=== PATIENT | male | born 1935 | race Caucasian/White ===

== ENCOUNTER 2016-12-24 17:44 | Inpatient (IN) ==
--- NOTE | 2016-12-24 18:02 | Anesthesia Evaluation PreOp ---
Date of Encounter: 12/24/16 Time of Encounter: 18:00 - Past History Planned Operation: Lap. 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 DEHYDROGENATION History: Denies Any Significant HX Other Medical History: Diabetes Type II Anesthesia History: No Prior Anesthetic Complications, Past Anesthesia (Cabg, Hernia, Eye sx) Alcohol Use: none Drug use: none Medications and Allergies Aspirin 81 mg PO DAILY 12/24/16 [History] Brimonidine 0.2% [Alphagan] 1 drop BOTH EYES BID 12/24/16 [History] Dorzolamide/Timolol [Cosopt] 1 drop BOTH EYES BID 12/24/16 [History] Hydrochlorothiazide 12.5 mg PO AD 12/24/16 [History] Insulin Glargine [Lantus] 55 unit SQ DAILY 12/24/16 [History] Isosorbide MONOnitrate (24 HR) [Imdur] 30 mg PO DAILY 12/24/16 [History] Nitroglycerin [Nitrostat] 0.4 mg SL AD 12/24/16 [History] Potassium Chloride [K-Tab ER] 20 meq PO DAILY 12/24/16 [History] Rosuvastatin Calcium [Crestor] 10 mg PO DAILY 12/24/16 [History] Sertraline [Zoloft] 50 mg PO DAILY 12/24/16 [History] Tamsulosin [Flomax] 0.8 mg PO DAILY 12/24/16 [History] Allergies Penicillins Allergy (Verified 12/24/16 12:56) Rash - Meds/Allergy Pre-op Review Medications Reviewed: Yes Allergies Reviewed: Yes Beta Blockers on Current Med List: No Anesthesia Results - Labs Laboratory Tests 12/24/16 12/24/16 12/24/16 13:30 13:30 13:30 WBC 14.5 H Hgb 13.7 Hct 41.8 Plt Count 136 L INR 1.3 Sodium 134 L Potassium 4.8 H Chloride 102 Carbon Dioxide 26 BUN 19 Creatinine 1.56 H ECHO 09/18/16 EF- 60% No Aortic stenosis Anesthesia Exam O2 Sat Height 1.85 m Weight 99.337 kg O2 Sat by Pulse Oximetry 96 Vital Signs Temp Pulse Resp BP Pulse Ox 98.9 F 94 18 179/89 96 12/24/16 17:47 12/24/16 17:47 12/24/16 17:47 12/24/16 17:47 12/24/16 17:47 Height: 6'1'' Weight: 219# - HEENT Pupil (Motor): Pupils equal, EOMI Mallampati: II Teeth: Normal Oral Opening: Greater than 3 - SUPERVISOR DEHYDROGENATION LOC: Oriented SUPERVISOR DEHYDROGENATION Motor: Normal RUE, Normal LUE, Normal RLE, Normal LLE, Normal Face SUPERVISOR DEHYDROGENATION Sensory: Normal: RUE, LUE, RLE, LLE, Face - Cardiac Rhythm: Regular Murmur: None Carotid Bruit: No - Pulmonary Breath Sounds: bilateral Clear Respiratory Effort: Symmetrical Anesthesia Assess/Plan ASA Score: 3 Modified Nicole Scale for Level of Consciousness: Cooperative, oriented, and tranquil Anesthetic Plan: General Autologous Blood: Yes Monitoring Plan: Standard Monitors Recovery Plan: PACU
[2016-12-24] MEDS ORDERED: Acetaminophen 325 MG TABLET PO PRN (18:11)
[2016-12-24] MEDS ORDERED: Naloxone 0.4 MG/ML INJ IVP PRN ×2 (18:11→21:38)
[2016-12-24] MEDS ORDERED: Ondansetron 4 MG/2 ML VIAL IVP PRN ×2 (18:11→21:38)
[2016-12-24] MEDS ORDERED: *HR* Promethazine 25 MG/ML VIAL IVP PRN ×2 (18:11→21:38)
[2016-12-24] MEDS ORDERED: *HR* HYDROmorphone (PF) 1 MG/ML SYRINGE IVP PRN (18:13)
[2016-12-24] MEDS ORDERED: *HR* OxyCODONE/APAP 5/325 TABLET PO PRN (18:13)
[2016-12-24] MEDS ORDERED: Dextrose Gel 15 GM PO PRN ×3 (18:16→21:38)
[2016-12-24] MEDS ORDERED: D5% in Water 1,000 ML IV PRN ×2 (18:16→21:38)
[2016-12-24] MEDS ORDERED: *HR* Dextrose 50 % in Water (Syg) 50 ML SYRINGE IVP PRN ×2 (18:16→21:38)
--- NOTE | 2016-12-24 18:17 | General Surg History&Physical ---
Date of Encounter: 12/24/16 Time of Encounter: 17:55 History of Present Illness Chief complaint: Acute appendicitis HPI: Mr. Villa is a 81 year old male transferred from [facility] for further evaluation and treatment of acute appendicitis. Patient indicates pain started 6 days ago and has progressed in severity. CT demonstrates bibasilar dependent atelectasis; inflamed and enlarged appendix without evidence of periappendiceal abscess or free intraperitoneal air. Scattered diverticula involving the sigmoid colon without evidence of diverticulitis is also noted. At the patient's request I was contacted and instructed [facility] to transfer the patient to [facility]. There he was evaluated in preparation for surgery. Past medical history is notable for diabetes; hypertension; hyperlipidemia; and a remote history of myocardial infarction; CKD-3 Surgical history: Coronary artery bypass grafting actually 10 years ago; coronary stenting; inguinal herniorrhaphy at approximate age 21 Medications: Aspirin 81 mg by mouth daily Brimonidine 0.2% one drop both eyes twice a day Dorzolamide/timolol 1 drop both eyes twice a day Hydrochlorothiazide 12.5 mg by mouth daily Insulin glargine 55 units subcutaneous daily Insulin lispro 6 units subcutaneous 3 times a day Isosorbide mononitrate (24 hours) 30 mg by mouth daily Nitroglycerin 0.4 mg sublingually as directed Potassium 20 mEq by mouth daily Rosuvastatin 10 mg by mouth daily Sertraline 50 mg by mouth daily Tamsulosin 0.8 mg by mouth daily Allergies: Penicillin with exposure resulting in a rash Social history: Patient is , lives with his spouse; has never smoked, denies any alcohol or illicit drug use Physical examination: Age-appropriate male resting comfortably in his ED bed, in no acute distress. The patient indicates he has pain when he moves" The patient has been afebrile, 98.9; also 94, respirations 18, blood pressure 179/89. Skin: Warm, dry no obvious jaundice Lungs: Clear to auscultation with minimal pain on deep inspiration Cardiac: Regular rate, soft ejection murmur Abdomen: Protuberant with involuntary guarding particularly in the right lower quadrant. Significant tenderness right lower quadrant; left lower quadrant without tenderness but on release of the abdominal wall rebound is elicited. No bowel sounds were audible. Extremities: No obvious clubbing cyanosis or edema. Laboratories: white count 14.5, hemoglobin 13.7, hematocrit 41.8; platelet count 136,000 PT 14.5, INR 1.3; sodium 134, potassium 4.8, BUN 19, creatinine 1.56 (review of previous labs indicate this is essentially baseline) Bilirubin 1.5, AST 11, ALT 14, alkaline phosphatase 96. Urinalysis markedly abnormal with greater than 300 protein; greater than thousand glucose trace ketones and moderate urine blood. 5-15 RBCs per high power field; 15-30 white cells per high-powered field CT was personally reviewed Impression: 81-year-old male with acute appendicitis for which surgery has been recommended. The patient is a reasonable candidate for laparoscopic appendectomy but understands that an open appendectomy may become necessary. Risks include hemorrhage, infection, intra-abdominal abscess, injury to adjacent structures. The patient is at increased risk for respiratory and cardiac complications. The patient has of expressed understanding and have granted consent. Plan: Observation admission, surgery PITER. Past Med Surg Social Fam HX - Past Medical History Medical history: diabetes, hyperlipidemia, hypertension, myocardial infarction Psychiatric history: no psych history - Social History Smoking Status: Never smoker Alcohol use: none Drug use: none Medications and Allergies Aspirin 81 mg PO DAILY 12/24/16 [History] Brimonidine 0.2% [Alphagan] 1 drop BOTH EYES BID 12/24/16 [History] Dorzolamide/Timolol [Cosopt] 1 drop BOTH EYES BID 12/24/16 [History] Hydrochlorothiazide 12.5 mg PO AD 12/24/16 [History] Insulin Glargine [Lantus] 55 unit SQ DAILY 12/24/16 [History] Insulin LISPRO [HumaLOG] 6 units SQ TIDWM 12/24/16 [History] Isosorbide MONOnitrate (24 HR) [Imdur] 30 mg PO DAILY 12/24/16 [History] Nitroglycerin [Nitrostat] 0.4 mg SL AD 12/24/16 [History] Potassium Chloride [K-Tab ER] 20 meq PO DAILY 12/24/16 [History] Rosuvastatin Calcium [Crestor] 10 mg PO DAILY 12/24/16 [History] Sertraline [Zoloft] 50 mg PO DAILY 12/24/16 [History] Tamsulosin [Flomax] 0.8 mg PO DAILY 12/24/16 [History] Allergies Penicillins Allergy (Verified 12/24/16 12:56) Rash Review of Systems All systems PM: A 10-system review of systems was performed and is negative for pertinent findings except as documented above in the HPI. General Surgery Exam Initial Vital Signs Temp Pulse Resp BP Pulse Ox 98.9 F 94 18 179/89 96 12/24/16 17:47 12/24/16 17:47 12/24/16 17:47 12/24/16 17:47 12/24/16 17:47 Results - Labs All other labs normal.
[2016-12-24] MEDS ORDERED: Bupivacaine/EPI 1:200k 0.25%PF 30 ML VIAL ONE (18:18)
[2016-12-24] MEDS ORDERED: *HR* Heparin 5,000 UNIT/ML VIAL SQ ONE (18:19)
[2016-12-24] MEDS ORDERED: Ondansetron 4 MG/2 ML VIAL ONE ×2 (18:25→19:22)
[2016-12-24] MEDS ORDERED: *HR* FentaNYL (PF) 100 MCG/2 ML VIAL ONE (18:25)
[2016-12-24] MEDS ORDERED: *HR* Rocuronium Bromide 50 MG/5 ML VIAL ONE ×2 (18:25→20:02)
[2016-12-24] MEDS ORDERED: Lidocaine -MPF 2% 2 ML VIAL ONE (18:26)
[2016-12-24] MEDS ORDERED: Ertapenem 1,000 MG in 0.9 % Sodium Chloride Mini Bag 100 ML IVPB STA (18:45)
[2016-12-24] MEDS ORDERED: Insulin Regular, Human 100 UNIT/ML ONE (18:52)
[2016-12-24] MEDS ORDERED: EPHEDrine 50 MG/ML VIAL ONE (19:17)
[2016-12-24] MEDS ORDERED: Dexamethasone 4 MG/ML VIAL ONE (19:22)
[2016-12-24] MEDS ORDERED: MetroNIDAZOLE 500 MG/100 ML 500 MG/100 ML BAG IVPB ONE (19:26)
[2016-12-24] MEDS ORDERED: *HR* HYDROmorphone 2 MG/ML SYRINGE ONE (19:35)
[2016-12-24] MEDS ORDERED: Acetaminophen IV 1,000 MG/100 ML INFUS..BTL ONE (19:43)
[2016-12-24] MEDS ORDERED: Neostigmine Methylsulfate 3 MG/3 ML SYRINGE ONE (20:15)
[2016-12-24] MEDS ORDERED: Insulin DETEMIR 100 UNIT/ML X5UNITS SQ SCH ×3 (21:00)
[2016-12-24] MEDS ORDERED: Insulin LISPRO 300 UNITS/3 ML VIAL SQ SCH ×2 (21:00)
--- NOTE | 2016-12-24 21:15 | Operative Note ---
Date of procedure: 12/24/16 Pre-op diagnosis: Acute appendicitis Post-op diagnosis: other (Acute gangrenous, perforated appendicitis) Procedure: Laparoscopy, open cholecystectomy Complications: Acute gangrenous perforated appendicitis with pus and stool right paracolic gutter Anesthesia: GETA Local Anesthetics: 0.25% Sensorcaine HCL with Epinephrine 1:200,000 SubQ (cc) ( 25 mL) Surgeon: Rehan Leone Deburrer: Aiden Baptiste Estimated blood loss (cc): 150 IV fluids (cc): 1,100 Specimen: appendix Condition: stable Disposition: PACU Procedure in Detail: The patient was brought to the operating room where he was placed supine upon the operating room table. The patient was appropriately identified as to person and procedure. The accuracy of this information was confirmed by the procedure team. The patient was intubated and anesthetized under the supervision of Dr. Michelle Patel. The abdomen was prepped and draped in usual sterile fashion. Several milliliters of 0.25% bupivacaine with 1 200,000 units epinephrine was infiltrated into the infraumbilical skin. A small transverse incision was made. Dissection was carried to the fascia. The fascia was grasped and elevated. Additional bupivacaine with 1 2000 epinephrine was infiltrated into the fascia followed by a vertical incision in the fascia. An 11 mm Xcel port was established. The rigid laparoscope was placed within the obturator to visualize passage through the layers of the anterior abdominal wall. Once the abdominal cavity was accessed, the obturator was replaced by the rigid laparoscope and the peritoneal cavity was insufflated with gaseous carbon dioxide. There was no obvious visible injury from establishing the port. There was green inflammatory fluid evident within the pelvis. Under direct visualization a 5 mm port was placed in the midline suprapubic abdomen, and a 12 mm port established in the left lower quadrant midclavicular line. Each site was infiltrated with the bupivacaine with epinephrine solution. Acute inflammatory changes were identified in the right pericolic gutter. This was most intense at the proximal tip of the cecum. The cecum was elevated. Distal ileum demonstrated some inflammatory changes with fibrinous exudate and adhesions. As these adhesions were lysed, the appendix was identified. The appendix was gangrenous with early necrotic changes. As the dissection proceeded it was apparent that the appendix was perforated. Further dissection resulted in increased discharge of appendiceal contents. The adherent small bowel secured the distal tip of the appendix. The laparoscopic approach was abandoned. The pneumoperitoneum was evacuated and the instrumentation removed. A transverse incision was made just medial and cephalad to the right anterior superior iliac spine. The skin was infiltrated with several milliliters of 0.25% bupivacaine with 1-200,000 units of epinephrine before making the skin incision. Dissection was carried through the subcutaneous tissue. Bleeding points were controlled with electrocautery. Dissection intended to the aponeurosis of the external oblique which was incised transversely. The oblique musculature was split in the direction of its fibers exposing the transversalis fascia allowing it to be grasped and elevated. This fascia was then incised and the abdomen entered atraumatically. Using a gloved hand, I was able to dissect the adherent small bowel from the appendix and mobilize the appendix to facilitate its removal. The appendix was transected at its junction with the cecum using the Ethicon ATS 45 mm stapler ( blue cartridge). The appendix was elevated to allow the mesoappendix to be divided with the Ethicon ATS 45 mm stapler using a vascular cartridge. Application of the the stapler was insufficient to control the appendiceal artery. It was necessary to suture ligate the artery with 3-0 silk. The appendix was removed in fragments and sent to pathology. The right paracolic gutter and pelvis was copiously irrigated with warm sterile saline. The saline was removed with a suction device. This area was repeatedly irrigated. Closure was then accomplished in layers. The peritoneum was closed with the transversalis fascia using running, interlocking 0 Vicryl. The aponeurosis of the external oblique was approximated with interrupted [id number] 0 Vicryl. The subcutaneous tissue was irrigated with warm sterile saline which was evacuated with the suction device and then approximated with running 3-0 Vicryl. The skin edges of the incision and port sites were approximated with clifford. Dry sterile dressings were applied the patient was taken to recovery in stable condition. Needle, sponge, and instrument counts were correct at the close of the case. Total volume of 0.25% bupivacaine with 1-200,000 units epinephrine used during this procedure, 25 mL.
[2016-12-24] MEDS ORDERED: Nitroglycerin 0.4 MG TAB.SUBL SL PRN (21:38)
--- NOTE | 2016-12-24 22:17 | Anesthesia Evaluation Post Op ---
Date of Encounter: 12/24/16 Time of Encounter: 21:35 - Vital Signs Vital Signs: Vital Signs/O2 Sat/Glucose, Most Current Temp Pulse Resp BP Pulse Ox 12/24/16 21:31 94 16 137/61 98 12/24/16 21:21 96 18 140/63 97 12/24/16 21:11 98.9 F 86 16 136/61 98 12/24/16 21:01 81 14 136/59 98 12/24/16 20:51 90 14 130/57 98 12/24/16 20:41 97.5 F L 74 10 129/55 99 12/24/16 18:30 98.9 F 18 179/89 - Lungs Lungs: Clear Ascult./Percussion - Airway Airway: Non-obstructed - Cardiovascular Regular Rate, Baseline Rhythm - Mental Status Mental Status: Alert & Oriented, Answers Appropriately - Pain Pain Scale: 1 Pain Scale used: Marquez-Zhu (Faces) - Nausea Vomiting Nausea Vomiting: Not Present - Hydration Hydration: NPO, Has not voided - Discharge PostOp Status: Transfer Patient to floor Anes Supervising Prov Stmt: Pt seen/evaluated, VSS And has met criteria for discharge to floor. - MD Hermelindo
[2016-12-24] MEDS: Insulin LISPRO 300 UNITS/3 ML VIAL SQ SCH (22:20)
[2016-12-24] MEDS: Dorzolamide/Timolol OPTH 10 ML BOTTLE BOTH EYES SCH (22:52)
[2016-12-25] MEDS: *HR* HYDROmorphone (PF) 1 MG/ML SYRINGE IVP PRN ×3 (01:52→14:06)
[2016-12-25] MEDS: MetroNIDAZOLE 500 MG/100 ML 500 MG/100 ML BAG IVPB SCH ×3 (01:53→16:59)
[2016-12-25] MEDS: Insulin LISPRO 300 UNITS/3 ML VIAL SQ SCH ×6 (01:53→22:24)
[2016-12-25] MEDS: *HR* OxyCODONE/APAP 5/325 TABLET PO PRN ×3 (05:18→21:13)
[2016-12-25 06:17] LABS: Basophils % 0.1 %; Hematocrit 43.7 % (37.5-50.1); Hemoglobin 13.9 g/dL (12.9-16.9); Immature Granulocytes % 0.3 % (0-4); Lymphocytes # 0.4 K/mcL (0.6-4.6); Lymphocytes % 2.9 %; Mean Corpuscular HGB Conc 31.8 g/dL (31.6-35.5); Mean Corpuscular Hemoglobin 29.1 pg (28.0-33.3); Mean Corpuscular Volume 91.4 fL (83.0-100.0); Mean Platelet Volume 11.4 fL (9.4-12.4); Monocytes # 0.7 K/mcL (0.0-1.3); Monocytes % 6.1 %; Platelet Count 137 K/mcL (140-400); Red Blood Count 4.78 M/mcL (4.19-5.50); Red Cell Distribution Width 12.7 % (11.5-14.5); Segmented Neutrophils % 90.6 %
[2016-12-25 06:39] LABS: Albumin 2.6 g/dL (3.5-5.0); Albumin/Globulin Ratio 0.7 (1.1-2.2); Bilirubin,Total 1.7 mg/dL (0.2-1.2); Calcium 9.1 mg/dL (8.6-10.8); Potassium 4.5 mEq/L (3.5-4.5); Total Protein 6.6 g/dL (6.0-8.3)
[2016-12-25 06:45] LABS: Large Platelets Present (Not Present); Platelet Estimate Decreased (Normal); Reactive Lymphocytes Present (Not Present); Toxic Granulation Present (Not Present)
[2016-12-25] MEDS ORDERED: Insulin LISPRO 300 UNITS/3 ML VIAL SQ SCH ×2 (07:30)
[2016-12-25] MEDS: Ringers Solution, Lactated 1,000 ML IVC SCH ×2 (08:18→16:47)
[2016-12-25] MEDS ORDERED: Pantoprazole 40 MG VIAL IVP SCH ×2 (09:00)
[2016-12-25] MEDS ORDERED: Ringers Solution, Lactated 500 ML IVC ONE (09:57)
[2016-12-25] MEDS: Dorzolamide/Timolol OPTH 10 ML BOTTLE BOTH EYES SCH (11:01)
[2016-12-25] MEDS: Isosorbide MONOnitrate (24 HR) 30 MG TAB.ER.24H PO SCH (11:03)
[2016-12-25] MEDS: Pantoprazole 40 MG VIAL IVP SCH (11:03)
[2016-12-25] MEDS: Ertapenem 1,000 MG in 0.9 % Sodium Chloride Mini Bag 100 ML IVPB SCH (12:02)
--- NOTE | 2016-12-25 14:54 | Electrocardiograph Report ---
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
--- NOTE | 2016-12-25 14:55 | Electrocardiograph Report ---
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
[2016-12-25] MEDS ORDERED: 0.9 % Sodium Chloride 500 ML IVC ONE (18:04)
--- NOTE | 2016-12-25 18:15 | General Surgery Progress Note ---
Date of Encounter: 12/25/16 Time of Encounter: 18:08 Subjective Patient reports: still having pain Narrative: Postoperative day 1: Patient complaining of incisional pain; tolerating diet without nausea or vomiting. Afebrile, 98.7; pulse 84, respirations 18, blood pressure 120/71 Has not yet been out of bed. Lungs: Clear to auscultation though inspiratory effort is limited Abdomen: Distended, tympanitic, few bowel sounds but no reported flatus. Incisions clean and dry, dressings removed. Urine output - marginal; Judd inserted fluid bolus administered. Urine output as a result approximately 300 mL. Laboratories: White count 12.1, hemoglobin 13.9, hematocrit 43.7. Platelet count 137,000. Sodium 136, potassium 4.5, BUN 26, creatinine 1.87. Estimated GFR diminished to 42. Impression: Postoperative day 1 status post laparoscopy converted to open appendectomy. Acute gangrenous perforated appendicitis. Pathology pending Acceptable postoperative status but requires continued IV antibiotics and close monitoring. Encourage activity out of bed, allow diet as tolerated maintain Judd for accurate I's and O's. Marginal urine output - repeat fold bolus and increase IV rate to 100 mL per hour Diabetes - satisfactory blood sugar control with sliding scale CAD with history of previous PR - status appears to be stable History CKD-3 Objective Vital Signs - Last 8 Hours Temp Pulse Resp BP Pulse Ox 12/25/16 17:11 98.7 F 84 18 120/71 97 12/25/16 11:30 98.1 F 92 14 146/74 96 Intake and Output 12/25/16 12/25/16 12/25/16 07:59 15:59 23:59 Intake Total 340 / 340 440 / 440 1000 / 1000 Output Total 0 / 0 400 / 400 50 / 50 Balance 340 / 340 40 / 40 950 / 950 Intake: IV Fluids 100 / 100 200 / 200 1000 / 1000 Lactated Ringers 1,000 ML 1000 / 1000 @ 80 mls/hr IVC .[id number] [facility] Rx#:[id number] INVanz 1,000 MG In 0.9 % 100 / 100 Sodium Chloride (Mini-Bag +) 100 ML @ 100 mls/hr IVPB DAILY [facility] Rx#: [id number] Flagyl 500 MG/100 ML 500 100 / 100 100 / 100 mg In 100 ml @ 100 mls/hr IVPB Q8HR [facility] Rx#: [id number] Oral 240 / 240 240 / 240 Output: Urine 0 / 0 300 / 300 Urethral (Judd) 300 / 300 Catheter 100 / 100 50 / 50 Other: Meal Lunch Percent of Meal Consumed 0% Weight 99.791 kg Blood Glucose* 209 171 195 Patient Weight 12/25/16 23:59 Weight 99.791 kg - Labs 12/25/16 04:49 12/25/16 04:49 Diabetes panel 12/25/16 Range/Units 04:49 Sodium 136 (136-145) mEq/L Potassium 4.5 (3.5-4.5) mEq/L Chloride 104 (98-109) mEq/L Carbon Dioxide 23 (19-29) mEq/L BUN 26 (8-26) mg/dL Creatinine 1.87 H (0.72-1.25) mg/dL Glucose 225 H (70-99) mg/dL Calcium 9.1 (8.6-10.8) mg/dL AST 15 (5-34) Units/L ALT 11 (0-55) Units/L Alkaline Phosphatase 82 (38-126) Units/L Albumin 2.6 L (3.5-5.0) g/dL Calcium panel 12/25/16 Range/Units 04:49 Calcium 9.1 (8.6-10.8) mg/dL Albumin 2.6 L (3.5-5.0) g/dL Pituitary panel 12/25/16 Range/Units 04:49 Sodium 136 (136-145) mEq/L Potassium 4.5 (3.5-4.5) mEq/L Chloride 104 (98-109) mEq/L Carbon Dioxide 23 (19-29) mEq/L BUN 26 (8-26) mg/dL Creatinine 1.87 H (0.72-1.25) mg/dL Glucose 225 H (70-99) mg/dL Calcium 9.1 (8.6-10.8) mg/dL Adrenal panel 12/25/16 Range/Units 04:49 Sodium 136 (136-145) mEq/L Potassium 4.5 (3.5-4.5) mEq/L Chloride 104 (98-109) mEq/L Carbon Dioxide 23 (19-29) mEq/L BUN 26 (8-26) mg/dL Creatinine 1.87 H (0.72-1.25) mg/dL Glucose 225 H (70-99) mg/dL Calcium 9.1 (8.6-10.8) mg/dL Total Bilirubin 1.7 H (0.2-1.2) mg/dL AST 15 (5-34) Units/L ALT 11 (0-55) Units/L Alkaline Phosphatase 82 (38-126) Units/L Albumin 2.6 L (3.5-5.0) g/dL - VTE Documentation of Mechanical Device: Intermittent pneumatic compression device Consult Discharge Plan - Plan Referrals: Rehan Leone MD [Non-Partnered Physician] -
[2016-12-25] MEDS ORDERED: *HR* HYDROmorphone (PF) 1 MG/ML SYRINGE IVP PRN (18:43)
[2016-12-25] MEDS ORDERED: Insulin DETEMIR 100 UNIT/ML X5UNITS SQ SCH (21:00)
[2016-12-25] MEDS: D5% in 0.45% NACL 1,000 ML IVC SCH (21:06)
[2016-12-25] MEDS: Dorzolamide/Timolol OPTH 10 ML BOTTLE LEFT EYE SCH (21:07)
[2016-12-26] MEDS: MetroNIDAZOLE 500 MG/100 ML 500 MG/100 ML BAG IVPB SCH ×3 (00:34→16:38)
[2016-12-26] MEDS: Insulin LISPRO 300 UNITS/3 ML VIAL SQ SCH ×6 (03:03→21:05)
[2016-12-26 05:10] LABS: Basophils % 0.2 %; Eosinophils % 0.3 %; Hematocrit 39.9 % (37.5-50.1); Hemoglobin 12.6 g/dL (12.9-16.9); Immature Granulocytes % 1.1 % (0-4); Lymphocytes # 0.5 K/mcL (0.6-4.6); Lymphocytes % 3.6 %; Mean Corpuscular HGB Conc 31.6 g/dL (31.6-35.5); Mean Corpuscular Hemoglobin 28.8 pg (28.0-33.3); Mean Corpuscular Volume 91.3 fL (83.0-100.0); Mean Platelet Volume 11.1 fL (9.4-12.4); Monocytes # 0.7 K/mcL (0.0-1.3); Monocytes % 5.5 %; Neutrophils # 11.8 K/mcL (1.6-8.9); Platelet Count 153 K/mcL (140-400); Red Blood Count 4.37 M/mcL (4.19-5.50); Segmented Neutrophils % 89.3 %
[2016-12-26 05:16] LABS: INR 1.5; Prothrombin Time 16.7 Seconds (9.4-12.1)
[2016-12-26 05:27] LABS: Calcium 8.5 mg/dL (8.6-10.8); Potassium 4.3 mEq/L (3.5-4.5)
[2016-12-26] MEDS: D5% in 0.45% NACL 1,000 ML IVC SCH ×2 (06:02→21:09)
[2016-12-26] MEDS ORDERED: Furosemide 40 MG/4 ML VIAL IVP ONE ×2 (07:46→21:28)
[2016-12-26] MEDS ORDERED: 0.9 % Sodium Chloride 500 ML IVC ONE (07:46)
[2016-12-26] MEDS: Pantoprazole 40 MG VIAL IVP SCH (09:32)
[2016-12-26] MEDS: Dorzolamide/Timolol OPTH 10 ML BOTTLE LEFT EYE SCH ×2 (09:33→21:04)
[2016-12-26] MEDS: Isosorbide MONOnitrate (24 HR) 30 MG TAB.ER.24H PO SCH (09:33)
[2016-12-26] MEDS: *HR* OxyCODONE/APAP 5/325 TABLET PO PRN (09:36)
[2016-12-26] MEDS: Ertapenem 1,000 MG in 0.9 % Sodium Chloride Mini Bag 100 ML IVPB SCH (09:38)
--- NOTE | 2016-12-26 13:23 | General Surgery Progress Note ---
Date of Encounter: 12/26/16 Time of Encounter: 13:10 Subjective Patient reports: still having pain, no flatus, no bowel movement Narrative: Postoperative day 2: Continues complain of abdominal pain; , pulse 86, respirations 15, blood pressure 152/78. SPO2 on 2.5-3 L/m nasal cannula 95-96% Patient was able to get out of bed and sit at bedside for approximately an hour. Tolerating liquids, no nausea or vomiting Lungs: Bibasilar rales; weak cough, Abdomen: Protuberant, tenderness localized around the incisions. Incisions are clean and dry. Audible bowel sounds. Urine output marginal - 300 mL for calendar day 12/25/16. Improved with fluid bolus and Lasix this AM, 700 mL so far today Laboratories: White count 13.2; hemoglobin 12.6 with hematocrit 39.9; platelet count 153,000. PT 16.7, INR 1.5 - will hold on starting the VTE prophylaxis of the patient is modestly anticoagulated Sodium 132, potassium 4.3, chloride 102, BUN 42, creatinine 2.2, estimated GFR 29 (continued/worsening renal impairment) Impression/Plan: 81-year-old status post laparoscopy converted to open appendectomy for acute perforated appendicitis with resultant peritonitis. Slow recovery to date. Hemodynamically stable. Continue IV fluids and ATB. Continue efforts to mobilize OOB and encourage incentive spirometry no bowel activity to day due to pertonitis. maintain bear for accurate I&O Urine culture obtained when patient presented to [facility] - strep agalactiae ( group B) will request sensitivities as pateint allergic to PCN Objective Vital Signs - Last 8 Hours Temp Pulse Resp BP Pulse Ox 12/26/16 10:59 97.9 F 50 15 124/69 95 12/26/16 06:59 97.8 F 86 15 152/78 96 Intake and Output 12/25/16 12/26/16 12/26/16 23:59 07:59 15:59 Intake Total 1100 / 1100 1100 / 1100 240 / 240 Output Total 50 / 50 250 / 250 450 / 450 Balance 1050 / 1050 850 / 850 -210 / -210 Intake: IV Fluids 1100 / 1100 1100 / 1100 D5% And 0.45% Nacl 1000 1000 / 1000 Ml Bag 1,000 ML @ 100 mls /hr IVC .Q10H [facility] Rx#: [id number] Lactated Ringers 1,000 ML 1000 / 1000 @ 80 mls/hr IVC .[id number] [facility] Rx#:[id number] Flagyl 500 MG/100 ML 500 100 / 100 100 / 100 mg In 100 ml @ 100 mls/hr IVPB Q8HR [facility] Rx#: [id number] Oral 240 / 240 Output: Catheter 50 / 50 250 / 250 450 / 450 Other: Meal Breakfast Percent of Meal Consumed 5% # Bowel Movements 0 0 Blood Glucose* 220 261 198 - Labs 12/26/16 04:33 12/26/16 04:33 Diabetes panel 12/26/16 Range/Units 04:33 Sodium 132 L (136-145) mEq/L Potassium 4.3 (3.5-4.5) mEq/L Chloride 102 (98-109) mEq/L Carbon Dioxide 20 (19-29) mEq/L BUN 42 H D (8-26) mg/dL Creatinine 2.20 H (0.72-1.25) mg/dL Glucose 291 H (70-99) mg/dL Calcium 8.5 L (8.6-10.8) mg/dL Calcium panel 12/26/16 Range/Units 04:33 Calcium 8.5 L (8.6-10.8) mg/dL Pituitary panel 12/26/16 Range/Units 04:33 Sodium 132 L (136-145) mEq/L Potassium 4.3 (3.5-4.5) mEq/L Chloride 102 (98-109) mEq/L Carbon Dioxide 20 (19-29) mEq/L BUN 42 H D (8-26) mg/dL Creatinine 2.20 H (0.72-1.25) mg/dL Glucose 291 H (70-99) mg/dL Calcium 8.5 L (8.6-10.8) mg/dL Adrenal panel 12/26/16 Range/Units 04:33 Sodium 132 L (136-145) mEq/L Potassium 4.3 (3.5-4.5) mEq/L Chloride 102 (98-109) mEq/L Carbon Dioxide 20 (19-29) mEq/L BUN 42 H D (8-26) mg/dL Creatinine 2.20 H (0.72-1.25) mg/dL Glucose 291 H (70-99) mg/dL Calcium 8.5 L (8.6-10.8) mg/dL - VTE Documentation of Mechanical Device: Intermittent pneumatic compression device Consult Discharge Plan - Plan Referrals: Rehan Leone MD [Non-Partnered Physician] -
[2016-12-26] MEDS: Insulin DETEMIR 100 UNIT/ML X5UNITS SQ SCH (21:05)
[2016-12-27] MEDS: MetroNIDAZOLE 500 MG/100 ML 500 MG/100 ML BAG IVPB SCH ×3 (00:05→17:14)
[2016-12-27] MEDS: Acetaminophen 325 MG TABLET PO PRN ×2 (00:05→11:05)
[2016-12-27] MEDS: Insulin LISPRO 300 UNITS/3 ML VIAL SQ SCH ×6 (00:06→20:11)
[2016-12-27 04:33] LABS: Hemoglobin 12.5 g/dL (12.9-16.9); Immature Granulocytes % 0.9 % (0-4); Mean Corpuscular HGB Conc 32.1 g/dL (31.6-35.5); Mean Corpuscular Volume 90.5 fL (83.0-100.0); Mean Platelet Volume 10.9 fL (9.4-12.4); Platelet Count 152 K/mcL (140-400); Red Blood Count 4.31 M/mcL (4.19-5.50)
[2016-12-27 04:34] LABS: Basophils % 0.1 %; Eosinophils # 0.1 K/mcL (0.0-0.6); Lymphocytes # 0.6 K/mcL (0.6-4.6); Monocytes # 0.8 K/mcL (0.0-1.3)
[2016-12-27 04:39] LABS: INR 1.5
[2016-12-27 04:49] LABS: Albumin 2.1 g/dL (3.5-5.0); Albumin/Globulin Ratio 0.6 (1.1-2.2); Bilirubin,Total 0.9 mg/dL (0.2-1.2); Calcium 8.7 mg/dL (8.6-10.8); Globulin 3.8 g/dL (2.4-3.5); Potassium 3.6 mEq/L (3.5-4.5); Total Protein 5.9 g/dL (6.0-8.3)
[2016-12-27] MEDS: D5% in 0.45% NACL 1,000 ML IVC SCH ×2 (07:41→11:13)
[2016-12-27] MEDS: Isosorbide MONOnitrate (24 HR) 30 MG TAB.ER.24H PO SCH (07:42)
[2016-12-27] MEDS: Pantoprazole 40 MG VIAL IVP SCH (07:42)
[2016-12-27] MEDS: Dorzolamide/Timolol OPTH 10 ML BOTTLE LEFT EYE SCH ×2 (07:45→20:12)
--- NOTE | 2016-12-27 10:59 | General Surgery Progress Note ---
Date of Encounter: 12/27/16 Time of Encounter: 10:47 Subjective Patient reports: still having pain Narrative: Postoperative day 3: Patient continues to complain of pain. Afebrile, 87.6, pulse 98, respirations 16, blood pressure 149/75 - hemodynamically stable Lungs: Bibasilar rales, poor inspiratory effort and weak cough. Reported increased basilar rales last evening improved with aerosol therapy, incentive spirometry and Lasix diuresis. Abdomen: Distended, tympanitic but active bowel sounds. Less tender to palpation on my examination compared to yesterday. No rebound. No reported flatus or BM. Incisions clean and dry. Laboratories: Persistent leukocytosis 13.6, hemoglobin 12.5, hematocrit 39.0. Platelet count 152,000. PT 16.0, INR 1.5 Sodium 133, potassium 3.6, chloride 102, BUN 41, creatinine 2.07, estimated GFR 31 Impression/plan Postoperative day 3, status post laparoscopy converted to open appendectomy for acute perforated appendicitis Postoperative ileus due to the peritonitis accompanying the acute perforated appendicitis. Bowel activity appears to be improving. Fleet enema today. Continue efforts to mobilize patient. Urinary tract infection due to Dtrep agalactiae - sensitivities requested and still pending; continue ertapenem Diabetes - controlled CKD-3 with acute component -slowly returning to baseline. Estimated GFR is improved from 29-31. Reduce IV fluids, continue prn furosemide Hyponatremia - mild, without symptoms History of CAD with prior OK - status appears stable Hypertension - controlled Objective Vital Signs - Last 8 Hours Temp Pulse Resp BP Pulse Ox 12/27/16 08:00 18 98 12/27/16 06:44 97.6 F 98 16 149/75 96 12/27/16 04:24 16 95 12/27/16 04:13 98.4 F 90 18 163/80 96 Intake and Output 12/26/16 12/27/16 12/27/16 23:59 07:59 15:59 Intake Total 1100 / 1100 1350 / 1350 100 / 100 Output Total 625 / 625 925 / 925 Balance 475 / 475 425 / 425 100 / 100 Intake: IV Fluids 1100 / 1100 1100 / 1100 D5% And 0.45% Nacl 1000 1000 / 1000 1000 / 1000 Ml Bag 1,000 ML @ 100 mls /hr IVC .Q10H [facility] Rx#: [id number] Flagyl 500 MG/100 ML 500 100 / 100 100 / 100 mg In 100 ml @ 100 mls/hr IVPB Q8HR [facility] Rx#: [id number] Oral 250 / 250 100 / 100 Output: Catheter 625 / 625 925 / 925 Other: Meal Dinner Breakfast Percent of Meal Consumed 10% 25% # Bowel Movements 0 Weight 101.06 kg Blood Glucose* 261 228 Patient Weight 12/27/16 23:59 Weight 101.06 kg - Labs 12/27/16 04:14 12/27/16 04:14 Diabetes panel 12/27/16 Range/Units 04:14 Sodium 133 L (136-145) mEq/L Potassium 3.6 (3.5-4.5) mEq/L Chloride 102 (98-109) mEq/L Carbon Dioxide 21 (19-29) mEq/L BUN 41 H (8-26) mg/dL Creatinine 2.07 H (0.72-1.25) mg/dL Glucose 240 H (70-99) mg/dL Calcium 8.7 (8.6-10.8) mg/dL AST 26 (5-34) Units/L ALT 14 (0-55) Units/L Alkaline Phosphatase 72 (38-126) Units/L Albumin 2.1 L (3.5-5.0) g/dL Calcium panel 12/27/16 Range/Units 04:14 Calcium 8.7 (8.6-10.8) mg/dL Albumin 2.1 L (3.5-5.0) g/dL Pituitary panel 12/27/16 Range/Units 04:14 Sodium 133 L (136-145) mEq/L Potassium 3.6 (3.5-4.5) mEq/L Chloride 102 (98-109) mEq/L Carbon Dioxide 21 (19-29) mEq/L BUN 41 H (8-26) mg/dL Creatinine 2.07 H (0.72-1.25) mg/dL Glucose 240 H (70-99) mg/dL Calcium 8.7 (8.6-10.8) mg/dL Adrenal panel 12/27/16 Range/Units 04:14 Sodium 133 L (136-145) mEq/L Potassium 3.6 (3.5-4.5) mEq/L Chloride 102 (98-109) mEq/L Carbon Dioxide 21 (19-29) mEq/L BUN 41 H (8-26) mg/dL Creatinine 2.07 H (0.72-1.25) mg/dL Glucose 240 H (70-99) mg/dL Calcium 8.7 (8.6-10.8) mg/dL Total Bilirubin 0.9 (0.2-1.2) mg/dL AST 26 (5-34) Units/L ALT 14 (0-55) Units/L Alkaline Phosphatase 72 (38-126) Units/L Albumin 2.1 L (3.5-5.0) g/dL - VTE Documentation of Mechanical Device: Intermittent pneumatic compression device Consult Discharge Plan - Plan Referrals: Rehan Leone MD [Non-Partnered Physician] -
[2016-12-27] MEDS ORDERED: *HR* HYDROmorphone (PF) 1 MG/ML SYRINGE IVP PRN (11:01)
[2016-12-27] MEDS: *HR* OxyCODONE/APAP 5/325 TABLET PO PRN (13:48)
[2016-12-27] MEDS: Insulin DETEMIR 100 UNIT/ML X5UNITS SQ SCH (20:11)
[2016-12-28] MEDS: MetroNIDAZOLE 500 MG/100 ML 500 MG/100 ML BAG IVPB SCH ×3 (00:06→17:36)
[2016-12-28] MEDS: Insulin LISPRO 300 UNITS/3 ML VIAL SQ SCH ×6 (00:07→22:51)
[2016-12-28] MEDS: Acetaminophen 325 MG TABLET PO PRN (04:17)
[2016-12-28 04:36] LABS: Basophils % 0.2 %; Eosinophils # 0.2 K/mcL (0.0-0.6); Eosinophils % 1.7 %; Hematocrit 37.1 % (37.5-50.1); Immature Granulocytes % 0.7 % (0-4); Lymphocytes # 0.6 K/mcL (0.6-4.6); Mean Corpuscular HGB Conc 32.3 g/dL (31.6-35.5); Mean Corpuscular Hemoglobin 29.1 pg (28.0-33.3); Monocytes % 7.9 %; Neutrophils # 10.2 K/mcL (1.6-8.9); Platelet Count 148 K/mcL (140-400); Red Blood Count 4.12 M/mcL (4.19-5.50); Red Cell Distribution Width 13.1 % (11.5-14.5); Segmented Neutrophils % 84.5 %
[2016-12-28 04:51] LABS: Calcium 8.7 mg/dL (8.6-10.8); Potassium 3.6 mEq/L (3.5-4.5)
[2016-12-28] MEDS: D5% in 0.45% NACL 1,000 ML IVC SCH ×2 (07:08→07:09)
[2016-12-28] MEDS: Pantoprazole 40 MG VIAL IVP SCH (07:49)
[2016-12-28] MEDS: Isosorbide MONOnitrate (24 HR) 30 MG TAB.ER.24H PO SCH (07:50)
[2016-12-28] MEDS: Dorzolamide/Timolol OPTH 10 ML BOTTLE LEFT EYE SCH ×2 (07:50→22:49)
[2016-12-28] MEDS ORDERED: Milk and Molasses Enema 200 ML RC ONE (12:37)
[2016-12-28] MEDS: *HR* OxyCODONE/APAP 5/325 TABLET PO PRN (12:48)
--- NOTE | 2016-12-28 12:48 | General Surgery Progress Note ---
Date of Encounter: 12/28/16 Time of Encounter: 12:39 Subjective Patient reports: no new complaints, no bowel movement Narrative: Postoperative day 4: Patient continues to complain of pain but clinically it is much less tender than before. Afebrile, 98.8; pulse 80, respirations 20, blood pressure 134/83. SPO2 on 2 L/m nasal cannula 97%. Lungs: Clear, inspiratory effort improved Abdomen: Distended, tympanitic but only minimally tender. Active bowel sounds are present, no BM or flatus reported. Fleet enema administered yesterday - ineffective Urine output approximately 1600 mL in the last 24 hours; 1825 mL so far today Urine cultures, drawn at [facility], group B strep, sensitivities requested due to PCN allergy but still pending pathology still pending Laboratories: Leukocytosis improved to 12.1, hemoglobin 12.0 hematocrit 37.1. Electrolytes stable, within normal limits, BUN improved to 37, creatinine improved to 1.6 to; estimated GFR also improved to 41 Impression/plan: Postoperative day 4 status post laparoscopy converted to open appendectomy for acute perforated appendicitis. Slowly improving with resolution of the ultimate peritonitis secondary to the acute perforated appendicitis Renal function also improving, returning to baseline; remove Judd in a.m. Pathology and urine culture results still pending Repeat enema (milk of molasses) today. Objective Vital Signs - Last 8 Hours Temp Pulse Resp BP Pulse Ox 12/28/16 11:00 98.8 F 80 20 134/83 97 12/28/16 06:54 98.2 F 83 16 177/90 98 Intake and Output 12/27/16 12/28/16 12/28/16 23:59 07:59 15:59 Intake Total 100 / 100 100 / 100 340 / 340 Output Total 600 / 600 300 / 300 250 / 250 Balance -500 / -500 -200 / -200 90 / 90 Intake: IV Fluids 100 / 100 100 / 100 100 / 100 Flagyl 500 MG/100 ML 500 100 / 100 100 / 100 100 / 100 mg In 100 ml @ 100 mls/hr IVPB Q8HR [facility] Rx#: [id number] Oral 0 / 0 0 / 0 240 / 240 Output: Catheter 600 / 600 300 / 300 250 / 250 Other: Meal Breakfast Percent of Meal Consumed 75% # Bowel Movements 0 0 Weight 101 kg Blood Glucose* 200 161 196 Patient Weight 12/28/16 23:59 Weight 101 kg - Labs 12/28/16 03:49 12/28/16 03:49 Diabetes panel 12/28/16 Range/Units 03:49 Sodium 136 (136-145) mEq/L Potassium 3.6 (3.5-4.5) mEq/L Chloride 104 (98-109) mEq/L Carbon Dioxide 23 (19-29) mEq/L BUN 37 H (8-26) mg/dL Creatinine 1.62 H (0.72-1.25) mg/dL Glucose 126 H (70-99) mg/dL Calcium 8.7 (8.6-10.8) mg/dL Calcium panel 12/28/16 Range/Units 03:49 Calcium 8.7 (8.6-10.8) mg/dL Pituitary panel 12/28/16 Range/Units 03:49 Sodium 136 (136-145) mEq/L Potassium 3.6 (3.5-4.5) mEq/L Chloride 104 (98-109) mEq/L Carbon Dioxide 23 (19-29) mEq/L BUN 37 H (8-26) mg/dL Creatinine 1.62 H (0.72-1.25) mg/dL Glucose 126 H (70-99) mg/dL Calcium 8.7 (8.6-10.8) mg/dL Adrenal panel 12/28/16 Range/Units 03:49 Sodium 136 (136-145) mEq/L Potassium 3.6 (3.5-4.5) mEq/L Chloride 104 (98-109) mEq/L Carbon Dioxide 23 (19-29) mEq/L BUN 37 H (8-26) mg/dL Creatinine 1.62 H (0.72-1.25) mg/dL Glucose 126 H (70-99) mg/dL Calcium 8.7 (8.6-10.8) mg/dL - VTE Documentation of Mechanical Device: Intermittent pneumatic compression device Consult Discharge Plan - Plan Referrals: Rehan Leone MD [Non-Partnered Physician] -
[2016-12-28] MEDS: Insulin DETEMIR 100 UNIT/ML X5UNITS SQ SCH (22:52)
[2016-12-29] MEDS: MetroNIDAZOLE 500 MG/100 ML 500 MG/100 ML BAG IVPB SCH ×2 (00:45→07:29)
[2016-12-29 05:34] LABS: Basophils # 0.1 K/mcL (0.0-0.2); Basophils % 0.6 %; Eosinophils # 0.2 K/mcL (0.0-0.6); Eosinophils % 2.2 %; Hematocrit 36.4 % (37.5-50.1); Hemoglobin 11.9 g/dL (12.9-16.9); Immature Granulocytes % 0.8 % (0-4); Lymphocytes # 0.8 K/mcL (0.6-4.6); Lymphocytes % 8.3 %; Mean Corpuscular HGB Conc 32.7 g/dL (31.6-35.5); Mean Corpuscular Hemoglobin 29.5 pg (28.0-33.3); Mean Corpuscular Volume 90.3 fL (83.0-100.0); Mean Platelet Volume 10.9 fL (9.4-12.4); Monocytes # 0.9 K/mcL (0.0-1.3); Monocytes % 9.6 %; Neutrophils # 7.1 K/mcL (1.6-8.9); Platelet Count 145 K/mcL (140-400); Red Blood Count 4.03 M/mcL (4.19-5.50); Red Cell Distribution Width 13.1 % (11.5-14.5); Segmented Neutrophils % 78.5 %
[2016-12-29] MEDS: Insulin LISPRO 300 UNITS/3 ML VIAL SQ SCH ×6 (05:38→20:13)
[2016-12-29 05:46] LABS: BUN/Creatinine Ratio 23 (6-26); Blood Urea Nitrogen 32 mg/dL (8-26); Calcium 8.7 mg/dL (8.6-10.8); Carbon Dioxide 23 mEq/L (19-29); Chloride 105 mEq/L (98-109); Glucose 244 mg/dL (70-99); Osmolality,Calculated 297 (280-300); Potassium 3.6 mEq/L (3.5-4.5); Sodium 136 mEq/L (136-145); eGFR For African Americans > 60 (> 60); eGFR For Non-African Americans 50 (> 60)
[2016-12-29] MEDS ORDERED: Insulin DETEMIR 100 UNIT/ML X5UNITS SQ SCH (06:27)
--- NOTE | 2016-12-29 07:08 | General Surgery Progress Note ---
Date of Encounter: 12/29/16 Time of Encounter: 06:40 - Assessment and Plan (1) Acute appendicitis Current Visit: No Status: Acute Postoperative day 5: Patient states he feels better today. He still reports some soreness at his incision site and feels that is improving. Patient had a large bowel movement yesterday and a another small bowel movement overnight. Afebrile 99.0F, pulse 77, respiratory rate 18, blood pressure 156/70, oxygen saturation is 98% on 2 L nasal cannula Lungs: Clear to auscultation bilaterally Heart: Regular rate and rhythm, no murmurs, rubs, gallops. Abdomen: Distended, tympanitic but improved from yesterday's exam. Minimally tender particularly around the incision sites. Active bowel sounds are present, several bowel movements in the last 24 hours. Incision sites are clean, dry, intact, no erythema, drainage, signs of infection. Milk of molasses enema administered yesterday was effective. Urine output is stable, 750 mL out yesterday, 200 mL out so far today Urine cultures, drawn at [facility], show group B strep. Classically sensitive to penicillins but patient is allergic to penicillins therefore request sensitivities, these are pending. Pathology consistent with perforated acute appendicitis. Laboratories: Leukocytosis improved 9.0, hemoglobin 11.9, hematocrit 36.4, platelets 145. Electrolytes stable, BUN improved to 32 and creatinine improved to 1.38, estimated GFR improved to 50 Impression/plan: Postoperative day 5 status post laparoscopy converted to open appendectomy for acute perforated appendicitis Continued slow improvement with resolution of peritonitis secondary to acute perforated appendicitis, pathology consistent with acute perforated appendicitis. Acute abdominal series performed yesterday consistent with ileus, no evidence of bowel obstruction. Since that time patient had good response to milk of molasses enema with a large bowel movement yesterday during the day and another small bowel movement overnight. Continue to monitor bowel function. Renal function continues to improve, at baseline, patient has good urine output. Judd will be removed today. Urine culture results revealed group B strep, sensitivities are pending. Qualifiers: Acute appendicitis type: unspecified acute appendicitis type Qualified Code (s): K35.80 - Unspecified acute appendicitis Subjective Patient reports: feels better, bowel movement Objective Vital Signs - Last 8 Hours Temp Pulse Resp BP Pulse Ox 12/29/16 06:25 99.0 F 77 18 156/70 98 12/29/16 04:17 98.8 F 83 18 145/76 97 12/29/16 04:03 20 97 12/29/16 00:12 99.1 F 94 18 122/58 95 12/29/16 00:04 20 98 Intake and Output 12/28/16 12/28/16 12/29/16 15:59 23:59 07:59 Intake Total 440 / 440 100 / 100 320 / 320 Output Total 450 / 450 125 / 125 200 / 200 Balance -10 / -10 -25 / -25 120 / 120 Intake: IV Fluids 100 / 100 100 / 100 100 / 100 Flagyl 500 MG/100 ML 500 100 / 100 100 / 100 100 / 100 mg In 100 ml @ 100 mls/hr IVPB Q8HR [facility] Rx#: [id number] Oral 340 / 340 0 / 0 220 / 220 Output: Urine 0 / 0 125 / 125 200 / 200 Catheter 450 / 450 Other: Meal Lunch Percent of Meal Consumed 20% # Voids 1 # Bowel Movements 0 0 Weight 101 kg Blood Glucose* 192 175 198 Patient Weight 12/29/16 23:59 Weight 101 kg - Labs 12/29/16 04:59 12/29/16 04:59 Diabetes panel 12/29/16 Range/Units 04:59 Sodium 136 (136-145) mEq/L Potassium 3.6 (3.5-4.5) mEq/L Chloride 105 (98-109) mEq/L Carbon Dioxide 23 (19-29) mEq/L BUN 32 H (8-26) mg/dL Creatinine 1.38 H (0.72-1.25) mg/dL Glucose 244 H (70-99) mg/dL Calcium 8.7 (8.6-10.8) mg/dL Calcium panel 12/29/16 Range/Units 04:59 Calcium 8.7 (8.6-10.8) mg/dL Pituitary panel 12/29/16 Range/Units 04:59 Sodium 136 (136-145) mEq/L Potassium 3.6 (3.5-4.5) mEq/L Chloride 105 (98-109) mEq/L Carbon Dioxide 23 (19-29) mEq/L BUN 32 H (8-26) mg/dL Creatinine 1.38 H (0.72-1.25) mg/dL Glucose 244 H (70-99) mg/dL Calcium 8.7 (8.6-10.8) mg/dL Adrenal panel 12/29/16 Range/Units 04:59 Sodium 136 (136-145) mEq/L Potassium 3.6 (3.5-4.5) mEq/L Chloride 105 (98-109) mEq/L Carbon Dioxide 23 (19-29) mEq/L BUN 32 H (8-26) mg/dL Creatinine 1.38 H (0.72-1.25) mg/dL Glucose 244 H (70-99) mg/dL Calcium 8.7 (8.6-10.8) mg/dL - VTE Documentation of Mechanical Device: Intermittent pneumatic compression device Consult Discharge Plan - Plan Referrals: Rehan Leone MD [Non-Partnered Physician] -
[2016-12-29] MEDS: Isosorbide MONOnitrate (24 HR) 30 MG TAB.ER.24H PO SCH (07:28)
[2016-12-29] MEDS: *HR* OxyCODONE/APAP 5/325 TABLET PO PRN (07:28)
[2016-12-29] MEDS ORDERED: Ertapenem 1,000 MG in 0.9 % Sodium Chloride Mini Bag 100 ML IVPB SCH (09:00)
[2016-12-29] MEDS: Dorzolamide/Timolol OPTH 10 ML BOTTLE LEFT EYE SCH ×2 (09:06→20:31)
[2016-12-29] MEDS: D5% in 0.45% NACL 1,000 ML IVC SCH (13:41)
[2016-12-29] MEDS ORDERED: Insulin LISPRO 300 UNITS/3 ML VIAL SQ SCH (16:00)
[2016-12-29] MEDS: *HR* Heparin 5,000 UNIT/ML VIAL SQ SCH (20:30)
[2016-12-30] MEDS: Acetaminophen 325 MG TABLET PO PRN (04:24)
[2016-12-30 06:10] LABS: Hematocrit 37.4 % (37.5-50.1); Hemoglobin 12.1 g/dL (12.9-16.9); Mean Corpuscular HGB Conc 32.4 g/dL (31.6-35.5); Mean Corpuscular Hemoglobin 29.2 pg (28.0-33.3); Mean Corpuscular Volume 90.3 fL (83.0-100.0); Mean Platelet Volume 10.8 fL (9.4-12.4); Platelet Count 178 K/mcL (140-400); Red Blood Count 4.14 M/mcL (4.19-5.50); Red Cell Distribution Width 13.2 % (11.5-14.5)
[2016-12-30 06:21] LABS: BUN/Creatinine Ratio 22 (6-26); Blood Urea Nitrogen 26 mg/dL (8-26); Calcium 8.8 mg/dL (8.6-10.8); Carbon Dioxide 24 mEq/L (19-29); Chloride 106 mEq/L (98-109); Glucose 102 mg/dL (70-99); Osmolality,Calculated 293 (280-300); Potassium 3.5 mEq/L (3.5-4.5); Sodium 139 mEq/L (136-145); eGFR For African Americans > 60 (> 60); eGFR For Non-African Americans 60 (> 60)
[2016-12-30] MEDS: *HR* Heparin 5,000 UNIT/ML VIAL SQ SCH ×2 (06:21→18:02)
[2016-12-30 06:49] LABS: Eosinophils # 0.6 K/mcL (0.0-0.6); Lymphocytes # 0.9 K/mcL (0.6-4.6); Monocytes # 1.1 K/mcL (0.0-1.3); Neutrophils # 6.8 K/mcL (1.6-8.9); Platelet Estimate Normal (Normal); Reactive Lymphocytes Present (Not Present)
--- NOTE | 2016-12-30 06:49 | General Surgery Progress Note ---
<Aiden Baptiste - Last Filed: 12/30/16 06:43> Date of Encounter: 12/30/16 Time of Encounter: 06:30 - Assessment and Plan (1) Acute appendicitis Current Visit: No Status: Acute Postoperative day 6: Patient states he continues to feel better today. He still reports some soreness at his incision site. Patient reports several small bowel movements overnight. Temperature 99.9F, pulse 80, respiratory rate 16, blood pressure 158/73, oxygen saturation is 92% on RA Lungs: Clear to auscultation bilaterally Heart: Regular rate and rhythm, no murmurs, rubs, gallops. Abdomen: Distended, tympanitic but improved from yesterday's exam. Minimally tender particularly around the incision sites, improving. Active bowel sounds are present, several bowel movements in the last 24 hours. Incision sites are clean, dry, intact, no erythema, drainage, signs of infection. Urine output is stable, 350 mL out so far today is documented but the patient also had an episode of incontinence overnight. Urine cultures, drawn at [facility], show group B strep sensitive to fluoroquinolones. Pathology consistent with perforated acute appendicitis. Laboratories: Leukocytosis resolved, 9.4, hemoglobin 12.1, hematocrit 37.4, platelets 178. Electrolytes stable, BUN improved to 26 and creatinine improved to 1.17, estimated GFR improved to 60 Impression/plan: Postoperative day 6 status post laparoscopy converted to open appendectomy for acute perforated appendicitis Continued slow improvement with resolution of peritonitis secondary to acute perforated appendicitis, pathology consistent with acute perforated appendicitis. Encourage by mouth intake, ambulation with assistance Vision continues to have active bowel sounds with bowel movements. Renal function continues to improve, at baseline, patient has good urine output. Judd was removed yesterday. Urine culture results revealed group B strep, sensitive to 4 quinolones, patient has been transitioned to by mouth Cipro. Qualifiers: Acute appendicitis type: unspecified acute appendicitis type Qualified Code (s): K35.80 - Unspecified acute appendicitis Subjective Patient reports: feels better Objective Vital Signs - Last 8 Hours Temp Pulse Resp BP Pulse Ox 12/30/16 05:09 16 92 L 12/30/16 03:45 99.9 F H 80 20 158/73 94 L 12/29/16 23:59 99.0 F 87 15 153/83 94 L 12/29/16 23:00 20 98 Intake and Output 12/29/16 12/29/16 12/30/16 15:59 23:59 07:59 Intake Total 360 / 360 0 / 0 150 / 150 Output Total 175 / 175 0 / 0 350 / 350 Balance 185 / 185 0 / 0 -200 / -200 Intake: Oral 360 / 360 0 / 0 150 / 150 Output: Urine 175 / 175 0 / 0 350 / 350 Other: Meal Lunch Dinner water pitcher Percent of Meal Consumed 60% 5% Stool Size Large Stool Consistency formed Stool Color Brown # Voids 1 1 # Bowel Movements 0 1 Weight 101.045 kg Blood Glucose* 193 145 Patient Weight 12/30/16 23:59 Weight 101.045 kg - Labs 12/30/16 05:06 12/30/16 05:06 Diabetes panel 12/30/16 Range/Units 05:06 Sodium 139 (136-145) mEq/L Potassium 3.5 (3.5-4.5) mEq/L Chloride 106 (98-109) mEq/L Carbon Dioxide 24 (19-29) mEq/L BUN 26 (8-26) mg/dL Creatinine 1.17 (0.72-1.25) mg/dL Glucose 102 H (70-99) mg/dL Calcium 8.8 (8.6-10.8) mg/dL Calcium panel 12/30/16 Range/Units 05:06 Calcium 8.8 (8.6-10.8) mg/dL Pituitary panel 12/30/16 Range/Units 05:06 Sodium 139 (136-145) mEq/L Potassium 3.5 (3.5-4.5) mEq/L Chloride 106 (98-109) mEq/L Carbon Dioxide 24 (19-29) mEq/L BUN 26 (8-26) mg/dL Creatinine 1.17 (0.72-1.25) mg/dL Glucose 102 H (70-99) mg/dL Calcium 8.8 (8.6-10.8) mg/dL Adrenal panel 12/30/16 Range/Units 05:06 Sodium 139 (136-145) mEq/L Potassium 3.5 (3.5-4.5) mEq/L Chloride 106 (98-109) mEq/L Carbon Dioxide 24 (19-29) mEq/L BUN 26 (8-26) mg/dL Creatinine 1.17 (0.72-1.25) mg/dL Glucose 102 H (70-99) mg/dL Calcium 8.8 (8.6-10.8) mg/dL - VTE Documentation of Mechanical Device: Intermittent pneumatic compression device Consult Discharge Plan - Plan Referrals: Rehan Leone MD [Non-Partnered Physician] - <Rehan Leone - Last Filed: 12/30/16 13:09> Objective Vital Signs - Last 8 Hours Temp Pulse Resp BP Pulse Ox 12/30/16 11:00 98.6 F 84 16 128/55 95 12/30/16 07:00 98.3 F 83 16 154/57 95 12/30/16 05:09 16 92 L Intake and Output 12/29/16 12/30/16 12/30/16 23:59 07:59 15:59 Intake Total 0 / 0 150 / 150 400 / 400 Output Total 0 / 0 350 / 350 200 / 200 Balance 0 / 0 -200 / -200 200 / 200 Intake: Oral 0 / 0 150 / 150 400 / 400 Output: Urine 0 / 0 350 / 350 200 / 200 Other: Meal Dinner water pitcher Percent of Meal Consumed 5% Stool Size Large Stool Consistency formed Stool Color Brown # Voids 1 1 # Bowel Movements 1 Weight 101.045 kg Blood Glucose* 145 81 126 Patient Weight 12/30/16 23:59 Weight 101.045 kg - Labs 12/30/16 05:06 12/30/16 05:06 Diabetes panel 12/30/16 Range/Units 05:06 Sodium 139 (136-145) mEq/L Potassium 3.5 (3.5-4.5) mEq/L Chloride 106 (98-109) mEq/L Carbon Dioxide 24 (19-29) mEq/L BUN 26 (8-26) mg/dL Creatinine 1.17 (0.72-1.25) mg/dL Glucose 102 H (70-99) mg/dL Calcium 8.8 (8.6-10.8) mg/dL Calcium panel 12/30/16 Range/Units 05:06 Calcium 8.8 (8.6-10.8) mg/dL Pituitary panel 12/30/16 Range/Units 05:06 Sodium 139 (136-145) mEq/L Potassium 3.5 (3.5-4.5) mEq/L Chloride 106 (98-109) mEq/L Carbon Dioxide 24 (19-29) mEq/L BUN 26 (8-26) mg/dL Creatinine 1.17 (0.72-1.25) mg/dL Glucose 102 H (70-99) mg/dL Calcium 8.8 (8.6-10.8) mg/dL Adrenal panel 12/30/16 Range/Units 05:06 Sodium 139 (136-145) mEq/L Potassium 3.5 (3.5-4.5) mEq/L Chloride 106 (98-109) mEq/L Carbon Dioxide 24 (19-29) mEq/L BUN 26 (8-26) mg/dL Creatinine 1.17 (0.72-1.25) mg/dL Glucose 102 H (70-99) mg/dL Calcium 8.8 (8.6-10.8) mg/dL - Attending Attestation I have examined the patient and agree with Dr Baptiste assessment. Patient doing well. Noted low grade temp last PM likely due to the atelectasis evident on AAS Patient tolerating diet and moving bowels. Agree with PT assessment and recommendation that patient will require post hospitalization rehabillitation/strengthening/ECF. Discussed with patient and his
[2016-12-30] MEDS: Isosorbide MONOnitrate (24 HR) 30 MG TAB.ER.24H PO SCH (07:57)
[2016-12-30] MEDS: Insulin LISPRO 300 UNITS/3 ML VIAL SQ SCH ×4 (07:58→21:07)
[2016-12-30] MEDS: Dorzolamide/Timolol OPTH 10 ML BOTTLE LEFT EYE SCH ×2 (07:58→21:09)
[2016-12-30] MEDS ORDERED: Ertapenem 1,000 MG in 0.9 % Sodium Chloride Mini Bag 100 ML IVPB SCH (09:00)
[2016-12-30] MEDS ORDERED: Insulin DETEMIR 100 UNIT/ML X5UNITS SQ SCH (21:00)
[2016-12-31] MEDS: *HR* OxyCODONE/APAP 5/325 TABLET PO PRN ×2 (01:15→08:37)
[2016-12-31 04:47] LABS: Basophils # 0.1 K/mcL (0.0-0.2); Basophils % 0.5 %; Eosinophils # 0.2 K/mcL (0.0-0.6); Eosinophils % 2.3 %; Hematocrit 37.3 % (37.5-50.1); Hemoglobin 11.9 g/dL (12.9-16.9); Immature Granulocytes % 1.6 % (0-4); Lymphocytes # 1.2 K/mcL (0.6-4.6); Mean Corpuscular HGB Conc 31.9 g/dL (31.6-35.5); Mean Corpuscular Hemoglobin 28.7 pg (28.0-33.3); Mean Corpuscular Volume 90.1 fL (83.0-100.0); Monocytes # 0.7 K/mcL (0.0-1.3); Monocytes % 7.7 %; Neutrophils # 6.9 K/mcL (1.6-8.9); Platelet Count 197 K/mcL (140-400); Red Blood Count 4.14 M/mcL (4.19-5.50); Red Cell Distribution Width 13.1 % (11.5-14.5); Segmented Neutrophils % 74.9 %
[2016-12-31 04:51] LABS: BUN/Creatinine Ratio 20 (6-26); Blood Urea Nitrogen 25 mg/dL (8-26); Calcium 8.6 mg/dL (8.6-10.8); Carbon Dioxide 26 mEq/L (19-29); Chloride 104 mEq/L (98-109); Glucose 192 mg/dL (70-99); Osmolality,Calculated 292 (280-300); Potassium 3.8 mEq/L (3.5-4.5); Sodium 136 mEq/L (136-145); eGFR For African Americans > 60 (> 60); eGFR For Non-African Americans 57 (> 60)
[2016-12-31 05:09] LABS: Platelet Estimate Normal (Normal)
[2016-12-31] MEDS: *HR* Heparin 5,000 UNIT/ML VIAL SQ SCH (06:13)
[2016-12-31] MEDS: Isosorbide MONOnitrate (24 HR) 30 MG TAB.ER.24H PO SCH (08:23)
[2016-12-31] MEDS: Dorzolamide/Timolol OPTH 10 ML BOTTLE LEFT EYE SCH (08:24)
[2016-12-31] MEDS: Insulin LISPRO 300 UNITS/3 ML VIAL SQ SCH ×2 (08:25→11:50)
[2016-12-31] MEDS ORDERED: Insulin DETEMIR 100 UNIT/ML X5UNITS SQ SCH (10:57)
[2016-12-31 11:13] VITALS: BP 116/61
--- NOTE | 2016-12-31 13:16 | Physician Discharge Referral ---
ExtendedCare Referral Info Transfer To: [facility] Provider in Charge after Transfer: PCP Institutional Level of Care: Skilled - Diagnosis (1) Acute appendicitis Priority: Primary Status: Acute Prognosis: Fair Aware of Diagnosis: Patient, Family Aware of Prognosis: Patient, Family - Transfer Medications Home Medications: Aspirin 81 mg PO DAILY 12/24/16 [History] Brimonidine 0.2% [Alphagan] 1 drop LEFT EYE BID 12/24/16 [History] Dorzolamide/Timolol [Cosopt] 1 drop LEFT EYE BID 12/24/16 [History] Hydrochlorothiazide 12.5 mg PO Q48H 12/24/16 [History] Insulin Glargine [Lantus] 55 unit SQ DAILY 12/24/16 [History] Isosorbide MONOnitrate (24 HR) [Imdur] 30 mg PO DAILY 12/24/16 [History] Nitroglycerin [Nitrostat] 0.4 mg SL Q5M PRN 12/24/16 [History] Potassium Chloride [K-Tab ER] 20 meq PO DAILY 12/24/16 [History] Rosuvastatin Calcium [Crestor] 10 mg PO DAILY 12/24/16 [History] Sertraline [Zoloft] 50 mg PO DAILY 12/24/16 [History] Tamsulosin [Flomax] 0.8 mg PO DAILY 12/24/16 [History] Allergies/Adverse Reactions: Allergies Penicillins Allergy (Verified 12/24/16 12:56) Rash - Respiratory Orders None Smoking Cessation: Smoking cessation has been advised. For more information, call the [place] Tobacco Quit Line at 7-774-DLAG-NOW. - Ancillary Orders May use pressure relief devices daily prn - Advance Directives Code Status: Full Code - Mobility Orders Ambulate - Rehabiliation Orders Rehab Potential: Good Rehab Orders: Evaluation for Physical Therapy, Evaluation for Occupational Therapy - Treatments Skin tear care topically daily PRN per policy, May check for fecal impaction rectally daily PRN - Diet Orders Cardiac (Diabetic) CERTIFICATION: I certify that the transfer of the above named patient to an Extended Care Facility is necessary for the continuing treatment of the diagnosis listed. The above information is true and accurate reflection of patient's current condition. Confidential - Redisclosure prohibited without a patient's written consent.
--- NOTE | 2016-12-31 13:31 | General Surgery Progress Note ---
Date of Encounter: 12/31/16 Time of Encounter: 13:00 Subjective Patient reports: feels better, tolerating a regular diet Narrative: POD #7 / discharge summary Postoperative day 7 - patient feeling well, voicing no complaints. Tolerating diet, no nausea vomiting; moving bowels without difficulty. Afebrile, 98.2; pulse 71, respirations 18, blood pressure 116/T1. SPO2 on room air 92-94% Lungs: Clear to auscultation, chest x-ray shows persistent, stable opacity left lung base consistent with atelectasis. Cardiac: Regular rate, no appreciable murmurs Abdomen: Protuberant, distended but not tender. It is possible that the patient is back to baseline. Incisions: Clean and dry. Active bowel sounds. Impression: 81-year-old male, 7 days status post laparoscopy converted to open appendectomy for acute perforated appendicitis with acompanying peritonitis. Status sufficiently improved to allow discharge. The patient has been evaluated per PT/OT with recommendation to transfer patient to ECF/rehab to continue recovery (strengthening and ambulation) to speed return to baseline and return home. Patient and aware and agree with these recommendations. Postoperative atelectasis Prolonged return of bowel function related to the acute perforated appendicitis with accompanying peritonitis. Bowel function appears back to baseline. Type 2 diabetes mellitus - resume home medications Acute on chronic kidney disease - resolved; per recent labs, mild chronic kidney disease or abscesses estimated GFR= 57 UTI due to Strep agalactiae - continue Cipro for 3 more days. CAD with remote history [place]; s/p CABG and coronary stenting - status stable Mild anemia likely due to chronic kidney disease and diabetes Recommendations : transfer to ECF today follow up my office next Wed - 01/08/2017 Objective Vital Signs - Last 8 Hours Temp Pulse Resp BP Pulse Ox 12/31/16 11:54 18 92 L 12/31/16 11:02 98.2 F 71 16 116/61 94 L 12/31/16 08:19 16 93 L 12/31/16 08:00 98.3 F 77 18 175/84 93 L Intake and Output 12/30/16 12/31/16 12/31/16 23:59 07:59 15:59 Intake Total 0 / 0 0 / 0 240 / 240 Output Total 0 / 0 425 / 425 600 / 600 Balance 0 / 0 -425 / -425 -360 / -360 Intake: Oral 0 / 0 0 / 0 240 / 240 Output: Urine 0 / 0 425 / 425 600 / 600 Other: Meal Breakfast Percent of Meal Consumed 25% Stool Size Large Stool Consistency loose Stool Color Brown # Voids 1 Weight 100.36 kg Blood Glucose* 219 164 Patient Weight 12/31/16 23:59 Weight 100.36 kg - Labs 12/31/16 04:18 12/31/16 04:18 Diabetes panel 12/31/16 Range/Units 04:18 Sodium 136 (136-145) mEq/L Potassium 3.8 (3.5-4.5) mEq/L Chloride 104 (98-109) mEq/L Carbon Dioxide 26 (19-29) mEq/L BUN 25 (8-26) mg/dL Creatinine 1.22 (0.72-1.25) mg/dL Glucose 192 H (70-99) mg/dL Calcium 8.6 (8.6-10.8) mg/dL Calcium panel 12/31/16 Range/Units 04:18 Calcium 8.6 (8.6-10.8) mg/dL Pituitary panel 12/31/16 Range/Units 04:18 Sodium 136 (136-145) mEq/L Potassium 3.8 (3.5-4.5) mEq/L Chloride 104 (98-109) mEq/L Carbon Dioxide 26 (19-29) mEq/L BUN 25 (8-26) mg/dL Creatinine 1.22 (0.72-1.25) mg/dL Glucose 192 H (70-99) mg/dL Calcium 8.6 (8.6-10.8) mg/dL Adrenal panel 12/31/16 Range/Units 04:18 Sodium 136 (136-145) mEq/L Potassium 3.8 (3.5-4.5) mEq/L Chloride 104 (98-109) mEq/L Carbon Dioxide 26 (19-29) mEq/L BUN 25 (8-26) mg/dL Creatinine 1.22 (0.72-1.25) mg/dL Glucose 192 H (70-99) mg/dL Calcium 8.6 (8.6-10.8) mg/dL - VTE Documentation of Mechanical Device: Intermittent pneumatic compression device Consult Discharge Plan - Plan Referrals: Rehan Leone MD [Non-Partnered Physician] -
--- NOTE | 2016-12-31 13:34 | Discharge Summary ---
Outpatient Proc Discharge Plan - Plan Additional Instructions: Diabetic diet Activities as tolerated; lifting limited to less than 20 pounds Patient to resume home medications Patient to continue Cipro 500 mg by mouth twice a day for another 3 days ( through 01/03/17) Rehabilitation may proceed without restriction My office, 01/08/17; please call office to make this appointment Tylenol as needed for pain Patient may shower, wash incisions with soap and water Home Medications: Aspirin 81 mg PO DAILY 12/24/16 [History] Brimonidine 0.2% [Alphagan] 1 drop LEFT EYE BID 12/24/16 [History] Dorzolamide/Timolol [Cosopt] 1 drop LEFT EYE BID 12/24/16 [History] Hydrochlorothiazide 12.5 mg PO Q48H 12/24/16 [History] Insulin Glargine [Lantus] 55 unit SQ DAILY 12/24/16 [History] Isosorbide MONOnitrate (24 HR) [Imdur] 30 mg PO DAILY 12/24/16 [History] Nitroglycerin [Nitrostat] 0.4 mg SL Q5M PRN 12/24/16 [History] Potassium Chloride [K-Tab ER] 20 meq PO DAILY 12/24/16 [History] Rosuvastatin Calcium [Crestor] 10 mg PO DAILY 12/24/16 [History] Sertraline [Zoloft] 50 mg PO DAILY 12/24/16 [History] Tamsulosin [Flomax] 0.8 mg PO DAILY 12/24/16 [History] Acetaminophen [Tylenol] 650 mg PO Q6HR PRN #0 tablet 12/31/16 [Rx] Albuterol Sulfate [Albuterol Inhaler] 2 puff IH [id number] inhaler 12/31/16 [Rx] Ciprofloxacin [Cipro] 500 mg PO BID #6 tablet 12/31/16 [Rx] Docusate [Colace] 100 mg PO BID capsule 12/31/16 [Rx] Insulin LISPRO [HumaLOG] 0 units SQ HS vial 12/31/16 [Rx] Insulin LISPRO [HumaLOG] 0 units SQ TIDAC vial 12/31/16 [Rx]
== END 2016-12-31 15:03 | DRG 339 ==
LOC: 3ANU 17:44 → EMEROO 17:44 → 3ANU 18:30
PROVIDERS: ADMIT Surgery; ATTEND Surgery
PROC: GENAPPY (ICD-10-PCS; 2016-12-24 18:00)

== ENCOUNTER 2017-01-11 21:30 | Inpatient (IN) ==
[2017-01-11] MEDS ORDERED: 0.9 % Sodium Chloride 1,000 ML IV ONE (21:53)
[2017-01-11] MEDS ORDERED: Cefepime HCl 2,000 MG in D5% in Water (Mini-Bag+) 100 ML IVPB STA (21:55)
[2017-01-11] MEDS ORDERED: MetroNIDAZOLE 500 MG/100 ML 500 MG/100 ML BAG IVPB STA (21:55)
--- NOTE | 2017-01-11 22:20 | Emergency Department Note ---
Disposition Clinical Impression: Status post appendectomy, Intra-abdominal abscess Disposition: Admitted As Inpatient Condition: Good General Adult HPI - General Chief complaint: ED Fever Stated complaint: fever post-op Time Seen by Provider: 01/11/17 21:35 Source: patient, EMS Limitations: no limitations Nursing Notes Reviewed: Yes Vital Signs Reviewed: Yes - History of Present Illness HPI Narrative: Patient here for evaluation of fever, abdominal pain, purulent drainage from recent surgical site. Patient had appendectomy by Dr. Leone at the beginning of the month. Patient has been treated at [facility] for rehabilitation. Patient complains of low-grade temperature since surgery that has acutely gotten worse over the last day. Patient has decreased appetite. Nausea. No vomiting or difficulty breathing. Pain Scale: 2 - Related Data Home Medications Medication Instructions Recorded Confirmed Aspirin 81 mg PO DAILY 12/24/16 01/12/17 Dorzolamide/Timolol [Cosopt] 1 drop LEFT EYE BID 12/24/16 01/12/17 Hydrochlorothiazide 12.5 mg PO Q48H 12/24/16 01/12/17 Insulin Glargine [Lantus] 55 unit SQ QAM 12/24/16 01/12/17 Isosorbide MONOnitrate (24 HR) 30 mg PO DAILY 12/24/16 01/12/17 [Imdur] Nitroglycerin [Nitrostat] 0.4 mg SL Q5M PRN 12/24/16 01/12/17 Potassium Chloride [K-Tab ER] 20 meq PO DAILY 12/24/16 01/12/17 Rosuvastatin Calcium [Crestor] 10 mg PO DAILY 12/24/16 01/12/17 Sertraline [Zoloft] 50 mg PO DAILY 12/24/16 01/12/17 Tamsulosin [Flomax] 0.8 mg PO DAILY 12/24/16 01/12/17 Insulin LISPRO [HumaLOG] 6 units SQ TIDAC PRN 01/12/17 01/12/17 Previous Rx's Medication Instructions Recorded Acetaminophen [Tylenol] 650 mg PO Q6HR PRN #0 tablet 12/31/16 Albuterol Sulfate [Albuterol 2 puff IH [id number] inhaler 12/31/16 Inhaler] Docusate [Colace] 100 mg PO BID capsule 12/31/16 Insulin LISPRO [HumaLOG] 0 units SQ HS vial 12/31/16 Allergies Allergy/AdvReac Type Severity Reaction Status Date / Time Penicillins Allergy Rash Verified 01/11/17 21:40 All systems ED: reviewed and negative except as stated. 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 Absent : tenderness - Respiratory Respiratory exam: Present: normal lung sounds bilaterally. Absent: respiratory distress, wheezes - Cardiovascular Cardiovascular exam: Present: regular rate, normal rhythm - Abdominal Exam Abdominal exam: Present: soft, tenderness, other (Purulent drainage from surgical wound) - Extremities Exam Extremities exam: Present: normal inspection - Neurological Exam Neurological exam: Present: alert, oriented X3 Course Course Narrative: Patient states he was told to come in by Dr. Clements for evaluation in the ED as well as a CT scan. - Reevaluation(s) Reevaluation #1: Pt significantly improved with fluids. Awaiting CT scan. Reevaluation #2: Complex intra-abdominal abscess. Pt will need admission for further management. - Consultations Consultation #1: Dr. Leone Accepts patient to his service. Vital Signs Temperature 98.4 F 01/11/17 21:38 Pulse Rate 89 01/11/17 21:38 Respiratory Rate 16 01/11/17 21:38 Blood Pressure 89/54 01/11/17 21:38 O2 Sat by Pulse Oximetry 97 01/11/17 21:38 Temperature 99.8 F H 01/12/17 01:12 Pulse Rate 91 01/12/17 01:12 Respiratory Rate 18 01/12/17 01:12 Blood Pressure 182/84 01/12/17 01:12 O2 Sat by Pulse Oximetry 98 02/21/17 01:12 Oxygen Delivery Oxygen Delivery Room Air Medical Decision Making - Lab Data Result diagrams: 01/11/17 22:24 01/11/17 22:24 Lab Results 01/11/17 01/11/17 01/11/17 Range/Units 22:24 22:24 22:24 WBC 10.2 (4.3-11.1) K/mcL RBC 3.74 L (4.19-5.50) M/mcL Hgb 10.5 L (12.9-16.9) g/dL Hct 33.9 L (37.5-50.1) % MCV 90.6 (83.0-100.0) fL MCH 28.1 (28.0-33.3) pg MCHC 31.0 L (31.6-35.5) g/dL RDW 13.2 (11.5-14.5) % Plt Count 280 (140-400) K/mcL MPV 10.5 (9.4-12.4) fL Immature Gran % 0.7 (0-4) % Seg Neutrophils % 83.0 % Lymphocytes % 6.7 % Monocytes % 8.4 % Eosinophils % 0.7 % Basophils % 0.5 % Neutrophils # 8.5 (1.6-8.9) K/mcL Lymphocytes # 0.7 (0.6-4.6) K/mcL Monocytes # 0.9 (0.0-1.3) K/mcL Eosinophils # 0.1 (0.0-0.6) K/mcL Basophils # 0.1 (0.0-0.2) K/mcL Immature Plt Fraction 3.6 (1.1-6.1) % PT 15.0 H (9.4-12.1) Seconds INR 1.4 APTT 35.0 (26.0-36.0) Seconds Sodium 131 L (136-145) mEq/L Potassium 4.7 H (3.5-4.5) mEq/L Chloride 102 (98-109) mEq/L Carbon Dioxide 23 (19-29) mEq/L BUN 23 (8-26) mg/dL Creatinine 1.72 H (0.72-1.25) mg/dL Est GFR ( Amer) 47 L (> 60) Est GFR (Non-Af Amer) 38 L (> 60) BUN/Creatinine Ratio 13 (6-26) Glucose 238 H (70-99) mg/dL Calculated Osmolality 283 (280-300) Lactic Acid (0.5-2.2) mmol/L Calcium 8.2 L (8.6-10.8) mg/dL Phosphorus 2.4 (2.3-4.7) mg/dL Magnesium 1.6 (1.6-2.6) mg/dL Total Bilirubin 0.9 (0.2-1.2) mg/dL Direct Bilirubin 0.6 H (0.0-0.5) mg/dL Indirect Bilirubin 0.3 (0.0-1.2) mg/dL AST 232 H (5-34) Units/L ALT 181 H (0-55) Units/L Alkaline Phosphatase 124 (38-126) Units/L Troponin I (0-0.03) ng/mL Serum Total Protein 6.3 (6.0-8.3) g/dL Albumin 1.9 L (3.5-5.0) g/dL Globulin 4.4 H (2.4-3.5) g/dL Albumin/Globulin Ratio 0.4 L (1.1-2.2) 01/11/17 01/11/17 Range/Units 22:24 22:24 WBC (4.3-11.1) K/mcL RBC (4.19-5.50) M/mcL Hgb (12.9-16.9) g/dL Hct (37.5-50.1) % MCV (83.0-100.0) fL MCH (28.0-33.3) pg MCHC (31.6-35.5) g/dL RDW (11.5-14.5) % Plt Count (140-400) K/mcL MPV (9.4-12.4) fL Immature Gran % (0-4) % Seg Neutrophils % % Lymphocytes % % Monocytes % % Eosinophils % % Basophils % % Neutrophils # (1.6-8.9) K/mcL Lymphocytes # (0.6-4.6) K/mcL Monocytes # (0.0-1.3) K/mcL Eosinophils # (0.0-0.6) K/mcL Basophils # (0.0-0.2) K/mcL Immature Plt Fraction (1.1-6.1) % PT (9.4-12.1) Seconds INR APTT (26.0-36.0) Seconds Sodium (136-145) mEq/L Potassium (3.5-4.5) mEq/L Chloride (98-109) mEq/L Carbon Dioxide (19-29) mEq/L BUN (8-26) mg/dL Creatinine (0.72-1.25) mg/dL Est GFR ( Amer) (> 60) Est GFR (Non-Af Amer) (> 60) BUN/Creatinine Ratio (6-26) Glucose (70-99) mg/dL Calculated Osmolality (280-300) Lactic Acid 1.2 (0.5-2.2) mmol/L Calcium (8.6-10.8) mg/dL Phosphorus (2.3-4.7) mg/dL Magnesium (1.6-2.6) mg/dL Total Bilirubin (0.2-1.2) mg/dL Direct Bilirubin (0.0-0.5) mg/dL Indirect Bilirubin (0.0-1.2) mg/dL AST (5-34) Units/L ALT (0-55) Units/L Alkaline Phosphatase (38-126) Units/L Troponin I 0.01 (0-0.03) ng/mL Serum Total Protein (6.0-8.3) g/dL Albumin (3.5-5.0) g/dL Globulin (2.4-3.5) g/dL Albumin/Globulin Ratio (1.1-2.2) Attestation Statement - Attestation Attestation: For this encounter, I have reviewed the resident, PREVENTATIVE MAINTENANCE TECHNICIAN, or PA documentation, treatment plan, and medical decision making; and I have had face to face time with this patient. 81-year-old male presents with concerns of an infected incision site. Patient had a recent appendectomy and states he never fully recovered. Patient reports purulent drainage from the incision site of his right lower quadrant. Patient was initially hypertensive on initial evaluation the emergency department. Patient was started on empiric antibiotics and given a liter of normal saline. Patient states he feels significantly improved. CT of the abdomen shows a large abscess and the patient was admitted for further care and evaluation.
[2017-01-11 22:32] LABS: Basophils # 0.1 K/mcL (0.0-0.2); Basophils % 0.5 %; Eosinophils # 0.1 K/mcL (0.0-0.6); Eosinophils % 0.7 %; Hematocrit 33.9 % (37.5-50.1); Hemoglobin 10.5 g/dL (12.9-16.9); Immature Granulocytes % 0.7 % (0-4); Immature Platelets 3.6 % (1.1-6.1); Lymphocytes # 0.7 K/mcL (0.6-4.6); Lymphocytes % 6.7 %; Mean Corpuscular Hemoglobin 28.1 pg (28.0-33.3); Mean Corpuscular Volume 90.6 fL (83.0-100.0); Mean Platelet Volume 10.5 fL (9.4-12.4); Monocytes # 0.9 K/mcL (0.0-1.3); Monocytes % 8.4 %; Neutrophils # 8.5 K/mcL (1.6-8.9); Platelet Count 280 K/mcL (140-400); Red Blood Count 3.74 M/mcL (4.19-5.50); Red Cell Distribution Width 13.2 % (11.5-14.5)
[2017-01-11 22:38] LABS: INR 1.4
[2017-01-11 22:46] LABS: Albumin/Globulin Ratio 0.4 (1.1-2.2); Bilirubin,Direct 0.6 mg/dL (0.0-0.5); Bilirubin,Indirect 0.3 mg/dL (0.0-1.2); Bilirubin,Total 0.9 mg/dL (0.2-1.2); Calcium 8.2 mg/dL (8.6-10.8); Globulin 4.4 g/dL (2.4-3.5); Magnesium 1.6 mg/dL (1.6-2.6); Phosphorous 2.4 mg/dL (2.3-4.7); Potassium 4.7 mEq/L (3.5-4.5); Total Protein 6.3 g/dL (6.0-8.3)
[2017-01-11 22:47] LABS: Albumin 1.9 g/dL (3.5-5.0)
[2017-01-12] MEDS ORDERED: *HR* OxyCODONE/APAP 5/325 TABLET PO PRN (01:45)
[2017-01-12] MEDS ORDERED: Ondansetron 4 MG/2 ML VIAL IVP PRN (01:45)
[2017-01-12] MEDS ORDERED: Acetaminophen 325 MG TABLET PO PRN (01:46)
[2017-01-12] MEDS ORDERED: Nitroglycerin 0.4 MG TAB.SUBL SL PRN (01:47)
[2017-01-12] MEDS ORDERED: Dextrose Gel 15 GM PO PRN ×2 (01:51)
[2017-01-12] MEDS ORDERED: D5% in Water 1,000 ML IV PRN (01:51)
[2017-01-12] MEDS ORDERED: *HR* Dextrose 50 % in Water (Syg) 50 ML SYRINGE IVP PRN (01:51)
[2017-01-12] MEDS: 0.9 % Sodium Chloride 1,000 ML IVC SCH ×2 (02:37→19:48)
[2017-01-12 02:55] LABS: Bilirubin,Urine Negative (Negative); Blood,Urine Trace (Negative); Clarity,Urine Clear (Clear); Color,Urine Yellow (Yellow); Glucose,Urine (UA) 100 mg/dL (Normal); Ketones,Urine Negative (Negative); Leukocyte Esterase,Urine Small (Negative); Nitrite,Urine Negative (Negative); PH,Urine 5.5 pH Units (5.0-8.0); Protein,Urine 100 mg/dL (Neg-Trace); Specific Gravity,Urine > 1.030 (1.010-1.025); Urobilinogen,Urine Normal (Normal)
[2017-01-12 02:58] LABS: Bacteria,Urine None Seen per hpf (None-Few); Hyaline Casts,Urine None Seen per lpf (None-Few); Squamous Epithelial Cell,Urine Many per lpf (None-Few); WBC,Urine 30-50 per hpf (0-3)
[2017-01-12 03:09] LABS: RBC,Urine 0-3 per hpf (0-3)
[2017-01-12] MEDS: Insulin LISPRO 300 UNITS/3 ML VIAL SQ SCH ×5 (04:57→21:51)
[2017-01-12] MEDS: MetroNIDAZOLE 500 MG/100 ML 500 MG/100 ML BAG IVPB SCH ×3 (05:02→17:05)
[2017-01-12] MEDS ORDERED: Cefepime HCl 2,000 MG in D5% in Water (Mini-Bag+) 100 ML IVPB SCH (08:00)
[2017-01-12] MEDS: hydroCHLOROthiazide 25 MG TABLET PO SCH (09:32)
[2017-01-12] MEDS: Isosorbide MONOnitrate (24 HR) 30 MG TAB.ER.24H PO SCH (09:32)
[2017-01-12] MEDS: Aspirin 81 MG TAB.CHEW PO SCH (09:32)
--- NOTE | 2017-01-12 18:09 | Electrocardiograph Report ---
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
[2017-01-12] MEDS: Cefepime HCl 2,000 MG in D5% in Water (Mini-Bag+) 100 ML IVPB SCH (19:47)
--- NOTE | 2017-01-12 20:21 | General Surg History&Physical ---
Date of Encounter: 01/12/17 Time of Encounter: 19:51 History of Present Illness Chief complaint: fever, wound infection HPI: This is a delayed dictation. The patient was seen and examined earlier today with CT personally reviewed. Wound care initiated. Mr. Villa is a 81 year old male transferred from a local [facility] to [facility] ED for further evaluation of fever, abdominal pain and purulent drainage from a transverse incision right lower quadrant. The patient is approximately 19 days (12/24/2016) status post laparoscopy converted to open appendectomy after being transferred from [facility] to [facility] for further evaluation and treatment of appproximately a one-week history of progressive right lower quadrant abdominal pain and radiologic evidence of an acutely inflamed a large appendix. At the time of the CT is no evidence of periappendiceal abscess or free peritoneal air. However, at the time of surgery the appendix was acutely gangrenous and obviously perforated. The patient was transferred to the local [facility] on 12/31/16 for continued postoperative rehabilitation. The patient returns now with an obvious wound infection related to the recent acute gangrenous appendicitis with perforation. Past medical history is notable for diabetes; hypertension; hyperlipidemia; and a remote history of myocardial infarction; there is also history of CK D3 but this proved considerably during his recent hospitalization with an estimated GFR greater than 60 at the time of discharge. Allergies penicillin Medications: Aspirin 81 mg by mouth daily Brimonidine 0.2% 1 drop left eye twice daily Dorzolamide/timolol 1 drop left eye twice daily Hydrochlorothiazide 12.5 mg by mouth daily Insulin glargine 55 units subcutaneous daily Insulin lispro 6 units subcutaneously 3 times a day Isosorbide mononitrate (24 hours) 30 mg by mouth daily Nitrostat 0.4 mg sublingually as directed for chest pain Potassium 20 mEq by mouth daily Rosuvastatin 10 mg by mouth daily Sertraline 50 mg by mouth daily Tamsulosin 0.8 mg by mouth daily ciprofloxacin 500 mg by mouth twice a day for an additional 3 days prescribed 12/31/16 Docusate 100 mg by mouth twice a day Acetaminophen 650 mg by mouth every 6 hours when necessary for pain Albuterol sulfate 2 puffs inhalation every 6 hours Social history: Patient is , lives with his spouse; currently residing in the [facility] while recovering from recent hospitalization as described above. The patient has never smoked, he denies any alcohol or illicit drug use Family history: noncontributory Physical examination: On presentation to the emergency department - temperature was 99.0; pulse 79, respirations 16, blood pressure 140/79 It was reported at the assisted that his temperature was greater than 101 ; during transport to [facility], the squad personnel described hypotension (systolic BP approx 85) for which IVF were administered. Skin was warm, without obvious jaundice Lungs were clear to auscultation Cardiac: Regular rate, no appreciable murmurs Abdomen: Soft slightly protuberant; with purulent drainage at a transverse incision right lower quadrant. An infraumbilical port site and suprapubic port site were both clean and dry. Bowel sounds were present. No rebound was elicited no other peritoneal signs identified. Laboratories: I count 10.2; hemoglobin 10.5 with hematocrit 33.9, platelet count 280,000. Sodium 131, potassium 4.7, chloride 102, BUN 23, creatinine 1.72; estimated GFR 38 CT - which was personally reviewed with [facility] showed no acute abnormalities of the visualized portions lower chest. Liver, spleen, pancreas appeared normal. Subcentimeter gallstones within the gallbladder are described. There was no wall thickening or pericholecystic inflammation to suggest Cholecystitis. Adrenals and kidneys appeared normal/stable with subcentimeter bilateral renal cysts. There was no hydronephrosis identified. The surgical staple line base of the cecum consistent with recent appendectomy is evident. Reactive edema in the ileocolic mesentery was described. Mildly dilated small bowel loops consistent with an ileus are noted. Abdominal wall abscess measuring 7.2 x 4 x 6.4 cm is noted. This appears to communicate through an adjacent 1 cm defect in the abdominal wall with fluid inferior to the cecum concerning for an additional abscess. On my reviewed of this CT - the pericecal fluid was not identified with no impression of an intra abdominal abscess. The clinical findings so far have identified an abdominal wall abscess for which the incision was opened, aerobic and anaerobic cultures obtained, and wound irrigations and BID dressing changes have been initiated. The patient is at risk for a deep space /intra peritoneal abscess and will be closely monitored. Plan: Admit, pain control, IV fluids and ATB, sliding scale insulin coverage / Q4H accuchecks. Wound care and serial abdominal examinations. Cefepime and Metronidazole initiated pending culture results which will guide further therapy when the results are available. Past Med Surg Social Fam HX - Past Medical History Medical history: diabetes, hyperlipidemia, hypertension, myocardial infarction Psychiatric history: no psych history - Past Surgical History Surgical History: coronary bypass (CABG) - Social History Smoking Status: Never smoker Smokeless Tobacco Status: No Alcohol use: none Drug use: none - Family History Father Living Status: Hx Family Cardiac Disorders: Yes Hx Family Respiratory Disorders: No Hx Family Cancer: No Hx Family GI Disorders: No Hx Family Endocrine Disorder: No Hx Family Neuromuscular Disorders: No Hx Family Neurologic Disorders: No Hx Family HEENT Disorders: No Hx Family Autoimmune Disorders: No Medications and Allergies Aspirin 81 mg PO DAILY 12/24/16 [History] Dorzolamide/Timolol [Cosopt] 1 drop LEFT EYE BID 12/24/16 [History] Hydrochlorothiazide 12.5 mg PO Q48H 12/24/16 [History] Insulin Glargine [Lantus] 55 unit SQ QAM 12/24/16 [History] Isosorbide MONOnitrate (24 HR) [Imdur] 30 mg PO DAILY 12/24/16 [History] Nitroglycerin [Nitrostat] 0.4 mg SL Q5M PRN 12/24/16 [History] Potassium Chloride [K-Tab ER] 20 meq PO DAILY 12/24/16 [History] Rosuvastatin Calcium [Crestor] 10 mg PO DAILY 12/24/16 [History] Sertraline [Zoloft] 50 mg PO DAILY 12/24/16 [History] Tamsulosin [Flomax] 0.8 mg PO DAILY 12/24/16 [History] Acetaminophen [Tylenol] 650 mg PO Q6HR PRN #0 tablet 12/31/16 [Rx] Albuterol Sulfate [Albuterol Inhaler] 2 puff IH [id number] inhaler 12/31/16 [Rx] Docusate [Colace] 100 mg PO BID capsule 12/31/16 [Rx] Insulin LISPRO [HumaLOG] 0 units SQ HS vial 12/31/16 [Rx] Brimonidine 0.2% [Alphagan] 1 drop LEFT EYE BID 01/12/17 [History] Insulin LISPRO [HumaLOG] 6 units SQ TIDAC PRN 01/12/17 [History] Allergies Penicillins Allergy (Verified 01/11/17 21:40) Rash Review of Systems All systems PM: A 10-system review of systems was performed and is negative for pertinent findings except as documented above in the HPI. General Surgery Exam Initial Vital Signs Temp Pulse Resp BP Pulse Ox 98.4 F 89 16 89/54 97 01/11/17 21:38 01/11/17 21:38 01/11/17 21:38 01/11/17 21:38 01/11/17 21:38 Results - Labs 01/11/17 22:24 01/11/17 22:24 Abnormal lab results RBC 3.74 M/mcL (4.19-5.50) L 01/11/17 22:24 Hgb 10.5 g/dL (12.9-16.9) L 01/11/17 22:24 Hct 33.9 % (37.5-50.1) L 01/11/17 22:24 MCHC 31.0 g/dL (31.6-35.5) L 01/11/17 22:24 PT 15.0 Seconds (9.4-12.1) H 01/11/17 22:24 Sodium 131 mEq/L (136-145) L 01/11/17 22:24 Potassium 4.7 mEq/L (3.5-4.5) H 01/11/17 22:24 Creatinine 1.72 mg/dL (0.72-1.25) H 01/11/17 22:24 Est GFR ( Amer) 47 (> 60) L 01/11/17 22:24 Est GFR (Non-Af Amer) 38 (> 60) L 01/11/17 22:24 Glucose 238 mg/dL (70-99) H 01/11/17 22:24 POC Glucose 217 (58-89) H 01/12/17 16:57 Calcium 8.2 mg/dL (8.6-10.8) L 01/11/17 22:24 Direct Bilirubin 0.6 mg/dL (0.0-0.5) H 01/11/17 22:24 AST 232 Units/L (5-34) H 01/11/17 22:24 ALT 181 Units/L (0-55) H 01/11/17 22:24 Albumin 1.9 g/dL (3.5-5.0) L 01/11/17 22:24 Globulin 4.4 g/dL (2.4-3.5) H 01/11/17 22:24 Albumin/Globulin Ratio 0.4 (1.1-2.2) L 01/11/17 22:24 Ur Specific [place] > 1.030 (1.010-1.025) H 01/12/17 02:40 Urine Protein 100 mg/dL (Neg-Trace) H 01/12/17 02:40 Urine Glucose (UA) 100 mg/dL (Normal) H 01/12/17 02:40 Urine Blood Trace (Negative) H 01/12/17 02:40 Ur Leukocyte Esterase Small (Negative) H 01/12/17 02:40 Urine Microscopic WBC 30-50 per hpf (0-3) H 01/12/17 02:40 Ur Squamous Epith Cells Many per lpf (None-Few) H 01/12/17 02:40 Ur Culture Indicated? YES (NO) A 01/12/17 02:40 All other labs normal. - VTE Documentation of Mechanical Device: Intermittent pneumatic compression device
[2017-01-13] MEDS: MetroNIDAZOLE 500 MG/100 ML 500 MG/100 ML BAG IVPB SCH ×4 (00:54→18:49)
[2017-01-13] MEDS: Insulin LISPRO 300 UNITS/3 ML VIAL SQ SCH ×6 (02:27→21:05)
[2017-01-13 05:44] LABS: Basophils # 0.1 K/mcL (0.0-0.2); Basophils % 1.1 %; Eosinophils # 0.2 K/mcL (0.0-0.6); Eosinophils % 3.2 %; Hematocrit 34.1 % (37.5-50.1); Hemoglobin 10.7 g/dL (12.9-16.9); Immature Granulocytes % 0.9 % (0-4); Lymphocytes % 14.8 %; Mean Corpuscular HGB Conc 31.4 g/dL (31.6-35.5); Mean Corpuscular Hemoglobin 28.2 pg (28.0-33.3); Mean Corpuscular Volume 89.7 fL (83.0-100.0); Mean Platelet Volume 10.7 fL (9.4-12.4); Monocytes # 0.7 K/mcL (0.0-1.3); Monocytes % 11.3 %; Neutrophils # 4.5 K/mcL (1.6-8.9); Platelet Count 262 K/mcL (140-400); Red Cell Distribution Width 13.2 % (11.5-14.5); Segmented Neutrophils % 68.7 %
[2017-01-13 06:05] LABS: BUN/Creatinine Ratio 18 (6-26); Blood Urea Nitrogen 24 mg/dL (8-26); Calcium 8.5 mg/dL (8.6-10.8); Carbon Dioxide 24 mEq/L (19-29); Chloride 103 mEq/L (98-109); Glucose 191 mg/dL (70-99); Osmolality,Calculated 285 (280-300); Potassium 4.4 mEq/L (3.5-4.5); Sodium 133 mEq/L (136-145); eGFR For African Americans > 60 (> 60); eGFR For Non-African Americans 52 (> 60)
[2017-01-13] MEDS: hydroCHLOROthiazide 25 MG TABLET PO SCH (09:04)
[2017-01-13] MEDS: Isosorbide MONOnitrate (24 HR) 30 MG TAB.ER.24H PO SCH (09:04)
[2017-01-13] MEDS: Aspirin 81 MG TAB.CHEW PO SCH (09:04)
[2017-01-13] MEDS: Cefepime HCl 2,000 MG in D5% in Water (Mini-Bag+) 100 ML IVPB SCH ×2 (09:05→21:06)
[2017-01-13] MEDS: 0.9 % Sodium Chloride 1,000 ML IVC SCH ×2 (15:06→21:06)
--- NOTE | 2017-01-13 19:24 | General Surgery Progress Note ---
Date of Encounter: 01/13/17 Time of Encounter: 19:15 Subjective Patient reports: feels better, tolerating a regular diet, no bowel movement Narrative: The patient is feeling better; I's abdominal pain, no nausea or vomiting. patient is requesting a stool softener to help him with BM. the patient remains afebrile, 98.4; pulse 84, respiration 16, BP 137/64 Lungs: clear to auscultation Abd: soft, non tender. Active bowel sounds. Transverse incision RLQ - clean, purulent drainage on the dressing Laboratories: WBC 6.6, Hgb 10.4 Hct 34.1; Platelets 262,000 sodium 133 (improved); Potassium 4.4; BUN 24; Cr 1.32 with eGFR 52 (also improved) cultures pending Impression: doing better S/p wound infection following laparoscopy, open appendectomy 12/24/2016 for acutely gangrenous perforated appendicitis.. continue IV ATB pending culture results. Diabetes - Blood sugars elevated, will add Lantus hyponatremia - improved, not symptomatic Objective Vital Signs - Last 8 Hours Temp Pulse Resp BP Pulse Ox 01/13/17 15:04 98.4 F 84 16 137/64 97 Intake and Output 01/13/17 01/13/17 01/13/17 07:59 15:59 23:59 Intake Total 300 / 300 1820 / 1820 Output Total 450 / 450 400 / 400 300 / 300 Balance -150 / -150 1420 / 1420 -300 / -300 Intake: IV Fluids 300 / 300 1100 / 1100 0.9 % Sodium Chloride 1, 1000 / 1000 000 ML @ 75 mls/hr IVC . [id number] [facility] Rx#: [id number] Maxipime 2,000 MG In 100 / 100 Dextrose 5% (Minibag+) 100 ML 100 ML @ 200 mls/ hr IVPB Q12H [facility] Rx#: [id number] Flagyl 500 MG/100 ML 500 200 / 200 100 / 100 mg In 100 ml @ 100 mls/hr IVPB Q6HR [facility] Rx#: [id number] Oral 720 / 720 Output: Urine 450 / 450 400 / 400 300 / 300 Other: Meal Lunch Percent of Meal Consumed 75% Weight 92.8 kg Blood Glucose* 194 298 326 Patient Weight 01/13/17 23:59 Weight 92.8 kg - Labs 01/13/17 05:06 01/13/17 05:06 Diabetes panel 01/13/17 Range/Units 05:06 Sodium 133 L (136-145) mEq/L Potassium 4.4 (3.5-4.5) mEq/L Chloride 103 (98-109) mEq/L Carbon Dioxide 24 (19-29) mEq/L BUN 24 (8-26) mg/dL Creatinine 1.32 H (0.72-1.25) mg/dL Glucose 191 H (70-99) mg/dL Calcium 8.5 L (8.6-10.8) mg/dL Calcium panel 01/13/17 Range/Units 05:06 Calcium 8.5 L (8.6-10.8) mg/dL Pituitary panel 01/13/17 Range/Units 05:06 Sodium 133 L (136-145) mEq/L Potassium 4.4 (3.5-4.5) mEq/L Chloride 103 (98-109) mEq/L Carbon Dioxide 24 (19-29) mEq/L BUN 24 (8-26) mg/dL Creatinine 1.32 H (0.72-1.25) mg/dL Glucose 191 H (70-99) mg/dL Calcium 8.5 L (8.6-10.8) mg/dL Adrenal panel 01/13/17 Range/Units 05:06 Sodium 133 L (136-145) mEq/L Potassium 4.4 (3.5-4.5) mEq/L Chloride 103 (98-109) mEq/L Carbon Dioxide 24 (19-29) mEq/L BUN 24 (8-26) mg/dL Creatinine 1.32 H (0.72-1.25) mg/dL Glucose 191 H (70-99) mg/dL Calcium 8.5 L (8.6-10.8) mg/dL - VTE Documentation of Mechanical Device: Intermittent pneumatic compression device Consult Discharge Plan - Plan Referrals: Jhoantan Ely MD [Primary Care Provider] -
[2017-01-13] MEDS: Insulin DETEMIR 100 UNIT/ML X5UNITS SQ SCH (21:05)
[2017-01-14] MEDS: Insulin LISPRO 300 UNITS/3 ML VIAL SQ SCH ×7 (00:41→23:58)
[2017-01-14] MEDS: MetroNIDAZOLE 500 MG/100 ML 500 MG/100 ML BAG IVPB SCH ×5 (00:42→23:58)
[2017-01-14 06:27] LABS: Basophils # 0.1 K/mcL (0.0-0.2); Basophils % 1.2 %; Eosinophils # 0.2 K/mcL (0.0-0.6); Eosinophils % 4.7 %; Hematocrit 33.9 % (37.5-50.1); Hemoglobin 10.7 g/dL (12.9-16.9); Immature Granulocytes % 1.4 % (0-4); Immature Platelets 5.3 % (1.1-6.1); Lymphocytes # 0.8 K/mcL (0.6-4.6); Mean Corpuscular HGB Conc 31.6 g/dL (31.6-35.5); Mean Corpuscular Hemoglobin 28.1 pg (28.0-33.3); Mean Platelet Volume 10.9 fL (9.4-12.4); Monocytes # 0.7 K/mcL (0.0-1.3); Neutrophils # 3.3 K/mcL (1.6-8.9); Platelet Count 265 K/mcL (140-400); Red Blood Count 3.81 M/mcL (4.19-5.50); Segmented Neutrophils % 64.7 %
[2017-01-14 07:44] LABS: BUN/Creatinine Ratio 18 (6-26); Blood Urea Nitrogen 22 mg/dL (8-26); Calcium 8.5 mg/dL (8.6-10.8); Carbon Dioxide 22 mEq/L (19-29); Chloride 105 mEq/L (98-109); Glucose 157 mg/dL (70-99); Osmolality,Calculated 285 (280-300); Potassium 4.5 mEq/L (3.5-4.5); Sodium 134 mEq/L (136-145); eGFR For African Americans > 60 (> 60); eGFR For Non-African Americans 56 (> 60)
[2017-01-14] MEDS: Cefepime HCl 2,000 MG in D5% in Water (Mini-Bag+) 100 ML IVPB SCH ×2 (09:09→20:16)
[2017-01-14] MEDS: Aspirin 81 MG TAB.CHEW PO SCH (09:11)
[2017-01-14] MEDS: Insulin DETEMIR 100 UNIT/ML X5UNITS SQ SCH ×2 (09:12→20:15)
[2017-01-14] MEDS: Isosorbide MONOnitrate (24 HR) 30 MG TAB.ER.24H PO SCH (09:12)
[2017-01-14] MEDS: hydroCHLOROthiazide 25 MG TABLET PO SCH (09:13)
[2017-01-14] MEDS: 0.9 % Sodium Chloride 1,000 ML IVC SCH (09:26)
--- NOTE | 2017-01-14 17:20 | General Surgery Progress Note ---
Date of Encounter: 01/14/17 Time of Encounter: 13:00 Subjective Narrative: Narrative: This note was originally posted on the wrong patient. No new complaints. The patient remains afebrile, 98.1; pulse 81-98; respirations 14-20; BP currently 94/56 after ambulating in yang Tolerating diet; BM today after administration Fleet enema. Lungs: clear, no obvious abdominal pain to deep inspiration Abd: soft, nontender; continued purulent drainage from the transverse incision right lower quadrant. Active bowel sounds. Laboratories: WBC 5.1; Hgb stable 10.7. Hct 33.9; platelets 265,000 electrolytes also stable - sodium 134, potassium 4.5 BUn 22; Cr 1.24 with eGFR improved to 56 Wound cultures - GPC, identification and sensitivity pending Impression: acceptable status Approximately 21 days s/p laparoscopy, open appendectomy for acutely gangrenous appendicitis with perforation. Post op wound infection. Plan: repeat CT for interval follow up abscess. Objective Vital Signs - Last 8 Hours Temp Pulse Resp BP Pulse Ox 01/14/17 16:35 98.3 F 88 16 133/68 97 01/14/17 12:30 99/56 01/14/17 11:52 98.1 F 98 20 94/56 96 Intake and Output 01/14/17 01/14/17 01/14/17 07:59 15:59 23:59 Intake Total 200 / 200 1340 / 1340 Output Total 1200 / 1200 200 / 200 Balance -1000 / -1000 1140 / 1140 Intake: IV Fluids 200 / 200 1100 / 1100 0.9 % Sodium Chloride 1, 900 / 900 000 ML @ 50 mls/hr IVC . Q20H [facility] Rx#:[id number] Maxipime 2,000 MG In 100 / 100 Dextrose 5% (Minibag+) 100 ML 100 ML @ 200 mls/ hr IVPB Q12H [facility] Rx#: [id number] Flagyl 500 MG/100 ML 500 200 / 200 100 / 100 mg In 100 ml @ 100 mls/hr IVPB Q6HR [facility] Rx#: [id number] Oral 0 / 0 240 / 240 Output: Urine 600 / 600 200 / 200 Catheter 600 / 600 Other: Meal Breakfast Percent of Meal Consumed 100% # Voids 1 Blood Glucose* 160 305 256 - Labs 01/14/17 04:51 01/14/17 04:36 Diabetes panel 01/14/17 Range/Units 04:36 Sodium 134 L (136-145) mEq/L Potassium 4.5 (3.5-4.5) mEq/L Chloride 105 (98-109) mEq/L Carbon Dioxide 22 (19-29) mEq/L BUN 22 (8-26) mg/dL Creatinine 1.24 (0.72-1.25) mg/dL Glucose 157 H (70-99) mg/dL Calcium 8.5 L (8.6-10.8) mg/dL Calcium panel 01/14/17 Range/Units 04:36 Calcium 8.5 L (8.6-10.8) mg/dL Pituitary panel 01/14/17 Range/Units 04:36 Sodium 134 L (136-145) mEq/L Potassium 4.5 (3.5-4.5) mEq/L Chloride 105 (98-109) mEq/L Carbon Dioxide 22 (19-29) mEq/L BUN 22 (8-26) mg/dL Creatinine 1.24 (0.72-1.25) mg/dL Glucose 157 H (70-99) mg/dL Calcium 8.5 L (8.6-10.8) mg/dL Adrenal panel 01/14/17 Range/Units 04:36 Sodium 134 L (136-145) mEq/L Potassium 4.5 (3.5-4.5) mEq/L Chloride 105 (98-109) mEq/L Carbon Dioxide 22 (19-29) mEq/L BUN 22 (8-26) mg/dL Creatinine 1.24 (0.72-1.25) mg/dL Glucose 157 H (70-99) mg/dL Calcium 8.5 L (8.6-10.8) mg/dL - VTE Documentation of Mechanical Device: Intermittent pneumatic compression device Consult Discharge Plan - Plan Referrals: Jhonatan Ely MD [Primary Care Provider] -
--- NOTE | 2017-01-14 17:28 | Event Note ---
Date of Encounter: 01/14/17 Time of Encounter: 17:20 CT abd/pelvis was personally reviewed with [facility], with comparison to CT approx 3 days ago. Findings include clear lung bases; stable finding of gallstones without obvious pericholecystic inflammation; sigmoid diverticulosis without diverticulitis; improvement in the secondary inflammatory wall thickening cecal wall and adjacent loops small bowel; interval decrease in size of the right lower quadrant intra abdominal and wall abscesses. On examination, the patient is feeling better. Prior complaints weakness diminished. BP also improved from 94/56 to 133/68. Pulse improved from 98 to 88. Lungs: CTA with no obvious abdominal pain with inspiration Abd: soft, non tender. Persistent purulent drainage transverse incision RLQ. Culture results still pending.
[2017-01-15] MEDS: Insulin LISPRO 300 UNITS/3 ML VIAL SQ SCH ×5 (04:58→20:14)
[2017-01-15] MEDS: MetroNIDAZOLE 500 MG/100 ML 500 MG/100 ML BAG IVPB SCH ×3 (05:00→18:13)
[2017-01-15] MEDS: hydroCHLOROthiazide 25 MG TABLET PO SCH (08:16)
[2017-01-15] MEDS: Aspirin 81 MG TAB.CHEW PO SCH (08:16)
[2017-01-15] MEDS: Isosorbide MONOnitrate (24 HR) 30 MG TAB.ER.24H PO SCH (08:16)
[2017-01-15] MEDS: Insulin DETEMIR 100 UNIT/ML X5UNITS SQ SCH ×2 (08:19→20:15)
[2017-01-15] MEDS: Cefepime HCl 2,000 MG in D5% in Water (Mini-Bag+) 100 ML IVPB SCH ×2 (08:19→20:17)
--- NOTE | 2017-01-15 12:45 | General Surgery Progress Note ---
Date of Encounter: 01/15/17 Time of Encounter: 12:39 Subjective Patient reports: no new complaints Narrative: Afebrile, 98.8; pulse 92, respirations 16, blood pressure 144/62. Voicing no new complaints, though still indicates that he is weak. Lungs: Clear Abdomen: Soft, nontender. Dressing changed, the transverse incision has healed but on reopening - copious purulent drainage occurred. Cultures: Gram-positive cocci, final identification and sensitivity still pending Anaerobic cultures negative Impression: Postoperative wound infection secondary to gram-positive cocci. Will initiate Vancomycin until sensitivities known CT, completed last evening - results discussed with patient and family. discussed with patient and family in attendance Hyponatremia - mild, asymptomatic Chronic kidney disease - improved with IV fluids, estimated GFR 56 Objective Vital Signs - Last 8 Hours Temp Pulse Resp BP Pulse Ox 01/15/17 11:00 98.8 F 92 16 144/62 96 01/15/17 07:00 98.1 F 87 16 164/82 97 Intake and Output 01/14/17 01/15/17 01/15/17 23:59 07:59 15:59 Intake Total 920 / 920 580 / 580 320 / 320 Output Total 1200 / 1200 2150 / 2150 0 / 0 Balance -280 / -280 -1570 / -1570 320 / 320 Intake: IV Fluids 200 / 200 100 / 100 200 / 200 Maxipime 2,000 MG In 100 / 100 100 / 100 Dextrose 5% (Minibag+) 100 ML 100 ML @ 200 mls/ hr IVPB Q12H [facility] Rx#: [id number] Flagyl 500 MG/100 ML 500 100 / 100 100 / 100 100 / 100 mg In 100 ml @ 100 mls/hr IVPB Q6HR [facility] Rx#: [id number] Oral 720 / 720 480 / 480 120 / 120 Output: Urine 1200 / 1200 2150 / 2150 0 / 0 Other: Meal Dinner Breakfast Percent of Meal Consumed 100% 90% Stool Size Large Stool Consistency soft Stool Characteristics Normal for Patient Stool Color Brown # Voids 1 # Bowel Movements 1 Weight 94.1 kg Blood Glucose* 149 147 211 Patient Weight 01/15/17 23:59 Weight 94.1 kg - Labs 01/14/17 04:51 01/14/17 04:36 - VTE Documentation of Mechanical Device: Intermittent pneumatic compression device Consult Discharge Plan - Plan Referrals: Jhonatan Ely MD [Primary Care Provider] -
[2017-01-15] MEDS ORDERED: Vancomycin 1,500 MG in D5% in Water 250 ML IVPB SCH (13:00)
[2017-01-15] MEDS: Vancomycin 1,250 MG in D5% in Water 250 ML IVPB SCH (14:44)
[2017-01-16] MEDS: Insulin LISPRO 300 UNITS/3 ML VIAL SQ SCH ×6 (00:20→20:33)
[2017-01-16] MEDS: MetroNIDAZOLE 500 MG/100 ML 500 MG/100 ML BAG IVPB SCH ×2 (00:21→05:17)
[2017-01-16 04:35] LABS: Basophils # 0.1 K/mcL (0.0-0.2); Basophils % 1.3 %; Eosinophils # 0.3 K/mcL (0.0-0.6); Eosinophils % 4.1 %; Hematocrit 35.2 % (37.5-50.1); Hemoglobin 11.2 g/dL (12.9-16.9); Immature Granulocytes % 2.2 % (0-4); Mean Corpuscular HGB Conc 31.8 g/dL (31.6-35.5); Mean Corpuscular Hemoglobin 28.3 pg (28.0-33.3); Mean Corpuscular Volume 88.9 fL (83.0-100.0); Mean Platelet Volume 10.4 fL (9.4-12.4); Monocytes # 1.1 K/mcL (0.0-1.3); Monocytes % 16.7 %; Neutrophils # 3.8 K/mcL (1.6-8.9); Platelet Count 271 K/mcL (140-400); Red Blood Count 3.96 M/mcL (4.19-5.50); Red Cell Distribution Width 13.2 % (11.5-14.5); Segmented Neutrophils % 59.7 %
[2017-01-16 05:00] LABS: Calcium 8.8 mg/dL (8.6-10.8); Potassium 4.8 mEq/L (3.5-4.5)
[2017-01-16] MEDS: Cefepime HCl 2,000 MG in D5% in Water (Mini-Bag+) 100 ML IVPB SCH ×2 (07:58→20:11)
[2017-01-16] MEDS: Aspirin 81 MG TAB.CHEW PO SCH (07:59)
[2017-01-16] MEDS: hydroCHLOROthiazide 25 MG TABLET PO SCH (08:00)
[2017-01-16] MEDS: Isosorbide MONOnitrate (24 HR) 30 MG TAB.ER.24H PO SCH (08:00)
[2017-01-16] MEDS: Insulin DETEMIR 100 UNIT/ML X5UNITS SQ SCH ×2 (08:02→20:12)
--- NOTE | 2017-01-16 11:18 | General Surgery Progress Note ---
Date of Encounter: 01/16/17 Time of Encounter: 11:05 Subjective Patient reports: no new complaints, feels better Narrative: General Surgery: The patient is in good spirits, voicing no complaints, indicates that he is feeling better Afebrile, 98.0; pulse 92, respirations 18, blood pressure 177/86. SPO2 on room air 21% Lungs: Clear, no abdominal pain with deep inspiration or cough Abdomen: Soft, nontender with no obvious peritoneal signs or rebound. Active bowel sounds. Purulent drainage persists from the transverse incision right lower quadrant third appears to be diminished. Laboratories: White count 6.4; hemoglobin 11.2 with hematocrit 35.2. Platelet count 271,000. Electrolytes notable for sodium of 133, potassium of 4.8, BUN 22 creatinine has increased to 1.48; estimated GFR diminished to 46. Accu-Cheks 147-261 Cultures demonstrate a streptococcus species (erroneously dictated as a staphylococcal species in prior dictations). Microbiology was contacted but the sensitivities are still pending. Aerobic cultures were negative. Impression: Postoperative wound infection related to acutely gangrenous, perforated appendicitis status post laparoscopy, open appendectomy, 12/24/16 Cultures identify a streptococcus species but final identification and sensitivities are still pending Hyponatremia - with no obvious symptoms Hyperkalemia - no obvious symptoms or side effects Diabetes mellitus - continue sliding scale and twice a day Levemir Hypertension - BP elevated, will add lisinopril Hyperlipidemia Remote history of myocardial infarction but currently hemodynamically stable History CKD 3 - current eGFR 46 - will resume IV fluids Objective Vital Signs - Last 8 Hours Temp Pulse Resp BP Pulse Ox 01/16/17 07:44 98.0 F 92 18 177/86 97 01/16/17 06:49 95 01/16/17 04:28 97.8 F 98 22 172/88 95 Intake and Output 01/15/17 01/16/17 01/16/17 23:59 07:59 15:59 Intake Total 450 / 450 200 / 200 220 / 220 Output Total 700 / 700 1650 / 1650 Balance -250 / -250 -1450 / -1450 220 / 220 Intake: IV Fluids 450 / 450 200 / 200 100 / 100 Maxipime 2,000 MG In 100 / 100 100 / 100 Dextrose 5% (Minibag+) 100 ML 100 ML @ 200 mls/ hr IVPB Q12H [facility] Rx#: [id number] Flagyl 500 MG/100 ML 500 100 / 100 200 / 200 mg In 100 ml @ 100 mls/hr IVPB Q6HR [facility] Rx#: [id number] Vancocin 1,250 MG In 250 / 250 Dextrose 5% 250 ML @ 166. 67 mls/hr IVPB Q24H [facility] Rx#:[id number] Oral 0 / 0 0 / 0 120 / 120 Output: Urine 700 / 700 1650 / 1650 Other: Meal Breakfast Percent of Meal Consumed 100% Weight 93.5 kg Blood Glucose* 319 155 Patient Weight 01/16/17 23:59 Weight 93.5 kg - Labs 01/16/17 04:23 01/16/17 04:23 Diabetes panel 01/16/17 Range/Units 04:23 Sodium 133 L (136-145) mEq/L Potassium 4.8 H (3.5-4.5) mEq/L Chloride 104 (98-109) mEq/L Carbon Dioxide 23 (19-29) mEq/L BUN 22 (8-26) mg/dL Creatinine 1.48 H (0.72-1.25) mg/dL Glucose 188 H (70-99) mg/dL Calcium 8.8 (8.6-10.8) mg/dL Calcium panel 01/16/17 Range/Units 04:23 Calcium 8.8 (8.6-10.8) mg/dL Pituitary panel 01/16/17 Range/Units 04:23 Sodium 133 L (136-145) mEq/L Potassium 4.8 H (3.5-4.5) mEq/L Chloride 104 (98-109) mEq/L Carbon Dioxide 23 (19-29) mEq/L BUN 22 (8-26) mg/dL Creatinine 1.48 H (0.72-1.25) mg/dL Glucose 188 H (70-99) mg/dL Calcium 8.8 (8.6-10.8) mg/dL Adrenal panel 01/16/17 Range/Units 04:23 Sodium 133 L (136-145) mEq/L Potassium 4.8 H (3.5-4.5) mEq/L Chloride 104 (98-109) mEq/L Carbon Dioxide 23 (19-29) mEq/L BUN 22 (8-26) mg/dL Creatinine 1.48 H (0.72-1.25) mg/dL Glucose 188 H (70-99) mg/dL Calcium 8.8 (8.6-10.8) mg/dL - VTE Documentation of Mechanical Device: Intermittent pneumatic compression device Consult Discharge Plan - Plan Referrals: Jhonatan Ely MD [Primary Care Provider] -
[2017-01-16] MEDS: D5% in 0.45% NACL 1,000 ML IVC SCH (11:38)
[2017-01-16] MEDS: Vancomycin 1,250 MG in D5% in Water 250 ML IVPB SCH (14:06)
[2017-01-16] MEDS: 0.9 % Sodium Chloride 1,000 ML IVC SCH ×2 (22:16)
[2017-01-17] MEDS: Insulin LISPRO 300 UNITS/3 ML VIAL SQ SCH ×7 (00:54→23:56)
[2017-01-17] MEDS: D5% in 0.45% NACL 1,000 ML IVC SCH ×2 (01:56→14:02)
[2017-01-17] MEDS: 0.9 % Sodium Chloride 1,000 ML IVC SCH (03:18)
[2017-01-17 05:23] LABS: Calcium 8.5 mg/dL (8.6-10.8); Potassium 4.8 mEq/L (3.5-4.5)
[2017-01-17] MEDS: Cefepime HCl 2,000 MG in D5% in Water (Mini-Bag+) 100 ML IVPB SCH ×2 (07:45→20:45)
[2017-01-17] MEDS: Aspirin 81 MG TAB.CHEW PO SCH (07:48)
[2017-01-17] MEDS: Isosorbide MONOnitrate (24 HR) 30 MG TAB.ER.24H PO SCH (07:49)
[2017-01-17] MEDS: hydroCHLOROthiazide 25 MG TABLET PO SCH (07:49)
[2017-01-17] MEDS: Insulin DETEMIR 100 UNIT/ML X5UNITS SQ SCH ×2 (07:56→20:47)
[2017-01-17] MEDS ORDERED: Insulin DETEMIR 100 UNIT/ML X5UNITS SQ STA (09:10)
--- NOTE | 2017-01-17 09:21 | General Surgery Progress Note ---
Date of Encounter: 01/17/17 Time of Encounter: 09:13 Subjective Patient reports: feels better Narrative: Hospital day 5: Patient feeling much improved, in good spirits. He is voicing no complaints. He indicates that his strength is returning and he has been ambulating more effectively. The patient remains afebrile, 98.1; pulse 82, respirations 20, blood pressure 169/82. SPO2 on room air 97%. Lungs: Clear Abdomen: Soft, nontender. Scant purulent drainage from the transverse incision right lower quadrant. Incision is otherwise clean dry and healing well. Accu-Cheks: Increased over the last 24 hours, currently in the range of 314- 342. Cultures: Staphylococcal species, final identification and sensitivity still pending Electrolytes: 131, potassium 4.8, BUN 25, creatinine 1.45; estimated GFR 47 Impression: Postoperative wound infection secondary to streptococcal species following laparoscopy converted to open appendectomy for acutely gangrenous perforated appendicitis. Purulent drainage markedly diminished. Patient feeling much improved. Continue IV antibiotics pending culture results. Hyperglycemia despite twice a day Levemir and high scale sliding scale coverage - will increase Levemir Hyponatremia - remains asymptomatic Chronic kidney disease - continue IV fluids Hypertension - better control with the addition of lisinopril Objective Vital Signs - Last 8 Hours Temp Pulse Resp BP Pulse Ox 01/17/17 06:41 97 01/17/17 05:09 98.1 F 82 20 169/82 97 Intake and Output 01/16/17 01/17/17 01/17/17 23:59 07:59 15:59 Intake Total 1470 / 1470 1780 / 1780 240 / 240 Output Total 500 / 500 1850 / 1850 Balance 970 / 970 -70 / -70 240 / 240 Intake: IV Fluids 1350 / 1350 1300 / 1300 D5% And 0.45% Nacl 1000 350 / 350 1200 / 1200 Ml Bag 1,000 ML @ 75 mls/ hr IVC .[id number] [facility] Rx#: [id number] Maxipime 2,000 MG In 100 / 100 Dextrose 5% (Minibag+) 100 ML 100 ML @ 200 mls/ hr IVPB Q12H [facility] Rx#: [id number] Oral 120 / 120 480 / 480 240 / 240 Output: Urine 500 / 500 1850 / 1850 Other: Meal Breakfast Percent of Meal Consumed 100% Stool Size Large Small Stool Consistency formed formed Stool Characteristics Normal for Patient Stool Color Brown Brown # Voids 1 1 # Bowel Movements 1 1 Weight 92.9 kg Blood Glucose* 315 314 Patient Weight 01/17/17 23:59 Weight 92.9 kg - Labs 01/16/17 04:23 01/17/17 04:37 Diabetes panel 01/17/17 Range/Units 04:37 Sodium 131 L (136-145) mEq/L Potassium 4.8 H (3.5-4.5) mEq/L Chloride 103 (98-109) mEq/L Carbon Dioxide 23 (19-29) mEq/L BUN 25 (8-26) mg/dL Creatinine 1.45 H (0.72-1.25) mg/dL Glucose 348 H (70-99) mg/dL Calcium 8.5 L (8.6-10.8) mg/dL Calcium panel 01/17/17 Range/Units 04:37 Calcium 8.5 L (8.6-10.8) mg/dL Pituitary panel 01/17/17 Range/Units 04:37 Sodium 131 L (136-145) mEq/L Potassium 4.8 H (3.5-4.5) mEq/L Chloride 103 (98-109) mEq/L Carbon Dioxide 23 (19-29) mEq/L BUN 25 (8-26) mg/dL Creatinine 1.45 H (0.72-1.25) mg/dL Glucose 348 H (70-99) mg/dL Calcium 8.5 L (8.6-10.8) mg/dL Adrenal panel 01/17/17 Range/Units 04:37 Sodium 131 L (136-145) mEq/L Potassium 4.8 H (3.5-4.5) mEq/L Chloride 103 (98-109) mEq/L Carbon Dioxide 23 (19-29) mEq/L BUN 25 (8-26) mg/dL Creatinine 1.45 H (0.72-1.25) mg/dL Glucose 348 H (70-99) mg/dL Calcium 8.5 L (8.6-10.8) mg/dL - VTE Documentation of Mechanical Device: Intermittent pneumatic compression device Consult Discharge Plan - Plan Referrals: Jhonatan Ely MD [Primary Care Provider] -
[2017-01-17] MEDS: Vancomycin 1,250 MG in D5% in Water 250 ML IVPB SCH (14:02)
[2017-01-18] MEDS: Insulin LISPRO 300 UNITS/3 ML VIAL SQ SCH ×5 (05:15→20:31)
[2017-01-18 05:31] LABS: Basophils # 0.1 K/mcL (0.0-0.2); Basophils % 0.9 %; Eosinophils # 0.4 K/mcL (0.0-0.6); Eosinophils % 5.2 %; Hematocrit 33.3 % (37.5-50.1); Hemoglobin 10.7 g/dL (12.9-16.9); Immature Granulocytes % 3.4 % (0-4); Lymphocytes # 1.1 K/mcL (0.6-4.6); Lymphocytes % 13.9 %; Mean Corpuscular HGB Conc 32.1 g/dL (31.6-35.5); Mean Corpuscular Hemoglobin 28.7 pg (28.0-33.3); Mean Corpuscular Volume 89.3 fL (83.0-100.0); Mean Platelet Volume 10.7 fL (9.4-12.4); Monocytes # 0.9 K/mcL (0.0-1.3); Monocytes % 11.4 %; Neutrophils # 5.4 K/mcL (1.6-8.9); Platelet Count 287 K/mcL (140-400); Red Blood Count 3.73 M/mcL (4.19-5.50); Red Cell Distribution Width 13.3 % (11.5-14.5); Segmented Neutrophils % 65.2 %
[2017-01-18 05:48] LABS: BUN/Creatinine Ratio 20 (6-26); Blood Urea Nitrogen 26 mg/dL (8-26); Calcium 8.8 mg/dL (8.6-10.8); Carbon Dioxide 22 mEq/L (19-29); Chloride 103 mEq/L (98-109); Glucose 286 mg/dL (70-99); Osmolality,Calculated 287 (280-300); Potassium 4.7 mEq/L (3.5-4.5); Sodium 131 mEq/L (136-145); eGFR For African Americans > 60 (> 60); eGFR For Non-African Americans 54 (> 60)
[2017-01-18] MEDS: D5% in 0.45% NACL 1,000 ML IVC SCH ×3 (06:42→20:28)
[2017-01-18] MEDS: Aspirin 81 MG TAB.CHEW PO SCH (08:24)
[2017-01-18] MEDS: Cefepime HCl 2,000 MG in D5% in Water (Mini-Bag+) 100 ML IVPB SCH (08:25)
[2017-01-18] MEDS: hydroCHLOROthiazide 25 MG TABLET PO SCH (08:35)
[2017-01-18] MEDS: Isosorbide MONOnitrate (24 HR) 30 MG TAB.ER.24H PO SCH (08:35)
[2017-01-18] MEDS: Insulin DETEMIR 100 UNIT/ML X5UNITS SQ SCH ×2 (08:39→20:31)
--- NOTE | 2017-01-18 12:58 | General Surgery Progress Note ---
Date of Encounter: 01/18/17 Time of Encounter: 12:52 Subjective Patient reports: feels better Narrative: Hospital day #6: Patient feeling well, voicing no complaints. Activity out of bed has increased The patient is afebrile, 98.2; pulse 83, respirations 16, blood pressure 158/ 74. Lungs: Clear Cardiac: Regular rate, no appreciable murmurs Abdomen: Soft, nontender. Scant purulent drainage from the transverse incision right lower quadrant Cultures: Enterococcus avium - sensitivities include ciprofloxacin, vancomycin, levofloxacin, aminoglycosides Laboratories: White count 8.2, hemoglobin 10.7, hematocrit 33.3; platelet count 287,000. Sodium 131, potassium 4.7, BUN 26, creatinine 1.29; estimated GFR 54 Impression: Doing well with significant improvement since initiating vancomycin therapy. (day #3) hyponatremia - stable, asymptomatic hyperkalemia - also asymptomatic anemia - likely due to prolonged illness Chronic kidney disease - responding to IV fluids, eGFR improved from 47 to 54 Plan: continue Vancomycin and IV for an additional [address] for interval improvement Objective Vital Signs - Last 8 Hours Temp Pulse Resp BP Pulse Ox 01/18/17 11:00 98.2 F 83 16 99 01/18/17 10:41 98.2 F 83 18 158/74 99 01/18/17 06:48 98.2 F 80 16 173/75 98 Intake and Output 01/17/17 01/18/17 01/18/17 23:59 07:59 15:59 Intake Total 435 / 435 1265 / 1265 120 / 120 Output Total 350 / 350 1700 / 1700 900 / 900 Balance 85 / 85 -435 / -435 -780 / -780 Intake: IV Fluids 75 / 75 1025 / 1025 D5% And 0.45% Nacl 1000 75 / 75 925 / 925 Ml Bag 1,000 ML @ 75 mls/ hr IVC .[id number] [facility] Rx#: [id number] Maxipime 2,000 MG In 100 / 100 Dextrose 5% (Minibag+) 100 ML 100 ML @ 200 mls/ hr IVPB Q12H [facility] Rx#: [id number] Oral 360 / 360 240 / 240 120 / 120 Output: Urine 350 / 350 1700 / 1700 900 / 900 Other: Meal Dinner Breakfast Percent of Meal Consumed 100% 100% Stool Size Moderate Stool Consistency formed Stool Color Brown # Bowel Movements 1 Blood Glucose* 311 234 380 - Labs 01/18/17 05:03 01/18/17 05:03 Diabetes panel 01/18/17 Range/Units 05:03 Sodium 131 L (136-145) mEq/L Potassium 4.7 H (3.5-4.5) mEq/L Chloride 103 (98-109) mEq/L Carbon Dioxide 22 (19-29) mEq/L BUN 26 (8-26) mg/dL Creatinine 1.29 H (0.72-1.25) mg/dL Glucose 286 H (70-99) mg/dL Calcium 8.8 (8.6-10.8) mg/dL Calcium panel 01/18/17 Range/Units 05:03 Calcium 8.8 (8.6-10.8) mg/dL Pituitary panel 01/18/17 Range/Units 05:03 Sodium 131 L (136-145) mEq/L Potassium 4.7 H (3.5-4.5) mEq/L Chloride 103 (98-109) mEq/L Carbon Dioxide 22 (19-29) mEq/L BUN 26 (8-26) mg/dL Creatinine 1.29 H (0.72-1.25) mg/dL Glucose 286 H (70-99) mg/dL Calcium 8.8 (8.6-10.8) mg/dL Adrenal panel 01/18/17 Range/Units 05:03 Sodium 131 L (136-145) mEq/L Potassium 4.7 H (3.5-4.5) mEq/L Chloride 103 (98-109) mEq/L Carbon Dioxide 22 (19-29) mEq/L BUN 26 (8-26) mg/dL Creatinine 1.29 H (0.72-1.25) mg/dL Glucose 286 H (70-99) mg/dL Calcium 8.8 (8.6-10.8) mg/dL - VTE Documentation of Mechanical Device: Intermittent pneumatic compression device Consult Discharge Plan - Plan Referrals: Jhonatan Ely MD [Primary Care Provider] -
[2017-01-18] MEDS ORDERED: Insulin DETEMIR 100 UNIT/ML X5UNITS SQ STA (13:01)
[2017-01-18] MEDS: Dorzolamide/Timolol OPTH 10 ML BOTTLE LEFT EYE SCH ×2 (14:09→20:29)
[2017-01-18] MEDS: Vancomycin 1,250 MG in D5% in Water 250 ML IVPB SCH (17:34)
[2017-01-19] MEDS: Insulin LISPRO 300 UNITS/3 ML VIAL SQ SCH ×4 (00:37→12:57)
[2017-01-19 05:38] LABS: BUN/Creatinine Ratio 25 (6-26); Blood Urea Nitrogen 28 mg/dL (8-26); eGFR For African Americans > 60 (> 60); eGFR For Non-African Americans > 60 (> 60)
[2017-01-19] MEDS: Isosorbide MONOnitrate (24 HR) 30 MG TAB.ER.24H PO SCH (07:23)
[2017-01-19] MEDS: Aspirin 81 MG TAB.CHEW PO SCH (07:23)
[2017-01-19] MEDS: hydroCHLOROthiazide 25 MG TABLET PO SCH (07:23)
[2017-01-19] MEDS: Dorzolamide/Timolol OPTH 10 ML BOTTLE LEFT EYE SCH (07:25)
[2017-01-19] MEDS: Insulin DETEMIR 100 UNIT/ML X5UNITS SQ SCH (07:47)
[2017-01-19] MEDS: D5% in 0.45% NACL 1,000 ML IVC SCH (10:54)
[2017-01-19 11:05] VITALS: BP 147/73
--- NOTE | 2017-01-19 13:34 | General Surgery Progress Note ---
Date of Encounter: 01/19/17 Time of Encounter: 13:02 Subjective Patient reports: no new complaints Narrative: General Surgery Progress Note / Discharge Summary Hospital day 7: Patient feeling well with no complaints. He is in good spirits and anxious to be discharged home. The patient is afebrile, 98.2; pulse 69, respirations 16, blood pressure 147/ 73; PO2 on room air 97 and 98%. Lungs: Clear Cardiac: Regular rate, no appreciable murmurs Abdomen: Soft, nontender. Scant purulent drainage from the transverse incision right lower quadrant with aggressive manipulation. Active bowel sounds. CT of the abdomen and pelvis completed this morning was personally reviewed. Findings include: Persistent inflammatory wall thickening of the cecum and distal small bowel with no evidence of bowel obstruction. 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 The abscess cavity and the anterior abdominal wall is described as enlarged. A persistent small, 1.9 x 1.3 cm abscess within the right lower quadrant mesentery is also described however on my review with [facility] this appears to be fluid and mesenteric stranding rather than an abscess. Despite the CT findings, the patient is well, in NAD. Afebrile with no abdominal pain to brisk palpation and manipulation of the RLQ incision. Laboratories: BUN 28, creatinine 1.12; estimated GFR greater than 60 Accu-Cheks: 219 this morning Brief History: 81-year-old patient status post laparoscopy, converted to open appendectomy, 12/24/2016 after transfer from [facility] with an approximate one- week history of progressive right lower quadrant bowel pain. CT at that time demonstrated an acutely inflamed enlarged appendix. The patient was transferred to [facility] for further evaluation and treatment. At the time of surgery an acutely gangrenous obviously perforated appendicitis was encountered. Surgery (laparoscopy, open appendectomy) was completed with discharge to an ECF 12/31/16. Patient returned to [facility] 01/12/17, for further evaluation of abdominal pain and purulent drainage from the transverse incision in the right lower quadrant. Cultures of this purulent fluid ultimately yielded enterococcus avium. CT History of a fluid collection in the ileocolic mesentery concerning for abscess as well as additional fluid collection inferior to the cecum. An abdominal wall abscess was also evident consistent with a complex post op abscess. White count was normal, but BUN, creatinine and estimated GFR were significantly altered consistent with acute on chronic kidney disease. Over the next several days, the patient responded to IV fluids and ATB. Renal function (eGFR) improved and was >60 at the time of discharge 01/19/2017. The persistent abdominal wall abscess described on repeat CTs 01/14/2017 and 01/19/2017 was the likely cause for the continued elevated blood glucose despite high sliding scale coverage and supplement insulin (Levemir) provided BID. The patient continued to recover until his discharge 01/19/2017. A CT was completed prior to the patient's discharge with the pertinent findings described above. Discharge Condition : good Discharge Diagnoses post op abscess following laparoscopy, open appendectomy for acutely gangrenous, perforated appendicitis due to enterococcus avium Diabetes mellitus persistent elevated blood sugars during the course of this hospitalization Hypertension Remote history of myocardial infarction History of CKD-3 with acute injury which eventually resolved with continued IV fluid. 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 Objective Vital Signs - Last 8 Hours Temp Pulse Resp BP Pulse Ox 01/19/17 11:02 98.2 F 69 16 147/73 97 01/19/17 06:50 97.6 F 89 16 173/83 98 Intake and Output 01/18/17 01/19/17 01/19/17 23:59 07:59 15:59 Intake Total 1490 / 1490 720 / 720 1200 / 1200 Output Total 200 / 200 1700 / 1700 1000 / 1000 Balance 1290 / 1290 -980 / -980 200 / 200 Intake: IV Fluids 1250 / 1250 1000 / 1000 D5% And 0.45% Nacl 1000 1000 / 1000 1000 / 1000 Ml Bag 1,000 ML @ 75 mls/ hr IVC .[id number] [facility] Rx#: [id number] Vancocin 1,250 MG In 250 / 250 Dextrose 5% 250 ML @ 166. 67 mls/hr IVPB Q24H [facility] Rx#:[id number] Oral 240 / 240 720 / 720 200 / 200 Output: Urine 200 / 200 1700 / 1700 1000 / 1000 Other: Meal NPO Percent of Meal Consumed 0% Stool Size Large Stool Consistency formed Stool Color Brown # Voids 1 # Bowel Movements 1 Weight 93.95 kg Blood Glucose* 256 210 171 Patient Weight 01/19/17 23:59 Weight 93.95 kg - Labs 01/18/17 05:03 01/19/17 04:46 Diabetes panel 01/19/17 Range/Units 04:46 BUN 28 H (8-26) mg/dL Creatinine 1.12 (0.72-1.25) mg/dL Pituitary panel 01/19/17 Range/Units 04:46 BUN 28 H (8-26) mg/dL Creatinine 1.12 (0.72-1.25) mg/dL Adrenal panel 01/19/17 Range/Units 04:46 BUN 28 H (8-26) mg/dL Creatinine 1.12 (0.72-1.25) mg/dL - VTE Documentation of Mechanical Device: Intermittent pneumatic compression device Consult Discharge Plan - Plan Referrals: Jhonatan Ely MD [Primary Care Provider] -
--- NOTE | 2017-01-19 13:37 | Discharge Summary ---
Outpatient Proc Discharge Plan - Plan Additional Instructions: Diabetic diet Activity as tolerated, lifting limited to less than 20 pounds Patient may shower, wash incision with soap and water Dressing changes one to two times daily follow up office, 01/22/2017. Patient to call office AM, 01/21/2017, to make appointment contact me immediately for any fever, chills, N/V or increased abdominal pain, redness, swelling, drainage Rx walker Rx Cipro 500mg po BID Tylenol as needed for pain resume home medications. Prescriptions: Ciprofloxacin HCl [Cipro] 500 mg PO BID #20 tablet Lisinopril [Zestril] 10 mg PO DAILY #30 tablet Home Medications: Aspirin 81 mg PO DAILY 12/24/16 [History] Dorzolamide/Timolol [Cosopt] 1 drop LEFT EYE BID 12/24/16 [History] Hydrochlorothiazide 12.5 mg PO Q48H 12/24/16 [History] Insulin Glargine [Lantus] 55 unit SQ QAM 12/24/16 [History] Isosorbide MONOnitrate (24 HR) [Imdur] 30 mg PO DAILY 12/24/16 [History] Nitroglycerin [Nitrostat] 0.4 mg SL Q5M PRN 12/24/16 [History] Rosuvastatin Calcium [Crestor] 10 mg PO DAILY 12/24/16 [History] Sertraline [Zoloft] 50 mg PO DAILY 12/24/16 [History] Tamsulosin [Flomax] 0.8 mg PO DAILY 12/24/16 [History] Acetaminophen [Tylenol] 650 mg PO Q6HR PRN #0 tablet 12/31/16 [Rx] Albuterol Sulfate [Albuterol Inhaler] 2 puff IH [id number] inhaler 12/31/16 [Rx] Docusate [Colace] 100 mg PO BID capsule 12/31/16 [Rx] Insulin LISPRO [HumaLOG] 0 units SQ HS vial 12/31/16 [Rx] Brimonidine 0.2% [Alphagan] 1 drop LEFT EYE BID 01/12/17 [History] Insulin LISPRO [HumaLOG] 6 units SQ TIDAC PRN 01/12/17 [History] Acetaminophen [Tylenol] 650 mg PO Q6HR PRN #0 tablet 01/19/17 [Rx] Ciprofloxacin HCl [Cipro] 500 mg PO BID #20 tablet 01/19/17 [Rx] Lisinopril [Zestril] 10 mg PO DAILY #30 tablet 01/19/17 [Rx]
[2017-01-19] MEDS: Vancomycin 1,250 MG in D5% in Water 250 ML IVPB SCH (14:01)
[2017-01-19] MEDS ORDERED: Aminoglycoside Consult 1 EACH MC ONE (16:16)
== END 2017-01-19 16:17 | disposition home or self-care (01) | DRG 862 ==
LOC: EMEROO 21:30 → 3ANU 21:30
PROVIDERS: ADMIT Surgery; ATTEND Surgery

== ENCOUNTER 2017-02-01 15:46 | Inpatient (IN) ==
[2017-02-01] MEDS ORDERED: 0.9 % Sodium Chloride 1,000 ML ONE (16:45)
[2017-02-01] MEDS ORDERED: 0.9 % Sodium Chloride 250 ML IVC ONE (16:53)
[2017-02-01] MEDS: 0.9 % Sodium Chloride 1,000 ML IVC SCH (17:30)
[2017-02-01] MEDS: Meropenem 1,000 MG in 0.9 % Sodium Chloride Mini Bag 100 ML IVPB SCH (17:30)
[2017-02-01 18:15] LABS: Basophils % 0.7 %; Eosinophils # 0.1 K/mcL (0.0-0.6); Eosinophils % 1.6 %; Hematocrit 33.9 % (37.5-50.1); Hemoglobin 10.4 g/dL (12.9-16.9); Immature Granulocytes % 0.5 % (0-4); Lymphocytes # 0.6 K/mcL (0.6-4.6); Lymphocytes % 14.9 %; Mean Corpuscular HGB Conc 30.7 g/dL (31.6-35.5); Mean Corpuscular Hemoglobin 28.1 pg (28.0-33.3); Mean Corpuscular Volume 91.6 fL (83.0-100.0); Mean Platelet Volume 10.1 fL (9.4-12.4); Monocytes # 0.5 K/mcL (0.0-1.3); Monocytes % 11.6 %; Platelet Count 185 K/mcL (140-400); Segmented Neutrophils % 70.7 %
[2017-02-01 18:25] LABS: Calcium 8.1 mg/dL (8.6-10.8); Potassium 4.5 mEq/L (3.5-4.5)
[2017-02-01] MEDS ORDERED: Insulin Regular, Human 100 UNIT/ML SQ STA (18:40)
[2017-02-01] MEDS ORDERED: *HR* Dextrose 50 % in Water (Syg) 50 ML SYRINGE IVP PRN (18:42)
[2017-02-01] MEDS ORDERED: Dextrose Gel 15 GM PO PRN (18:42)
[2017-02-01] MEDS: Insulin LISPRO 300 UNITS/3 ML VIAL SQ SCH ×2 (19:32→21:48)
--- NOTE | 2017-02-01 19:48 | General Surg History&Physical ---
Date of Encounter: 02/01/17 Time of Encounter: 15:00 History of Present Illness Chief complaint: weakness, dizziness, fever HPI: Mr. Villa is a 81 year old male admitted to [facility] for further evaluation and treatment after presenting to my office with fever, weakness, and dizziness. The patient indicates that his is at home, in bed, "sick with flu". The patient is approximately 5 weeks status post laparoscopy, open appendectomy for an acutely gangrenous perforated appendicitis on 12/24/16. The patient was rehospitalized, 01/12/17, with fever and purulent drainage from the open appendectomy incision. Cultures demonstrated enterococcus avium with sensitivities to Cipro, Levaquin, vancomycin, aminoglycosides. During that hospitalization patient received and responded to vancomycin with discharge home 01/19/17 with a prescription for Cipro 500 mg by mouth twice a day. Inset time the patient has been followed as an outpatient with satisfactory progress. Patient presented to my office today for routine outpatient follow-up with the complaints described above. A CT abdomen/pelvis completed, 01/29/17, showed improving inflammatory changes within the appendectomy bed with resolution of the prior described small abscess /seroma within the mesentery as well as improving right lower quadrant fluid collection/abscess in the anterior abdominal wall. 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 These x-rays were personally reviewed with [facility], Based on the patient's presentation to my office I recommended observation admission to [facility]. Past medical history: Diabetes, hypertension, hyperlipidemia, coronary artery disease with prior myocardial infarction,ckd-3, depression Surgical history: Coronary artery bypass grafting; artery angioplasty with stenting; inguinal herniorrhaphy; laparoscopy, open appendectomy for acutely gangrenous perforated appendicitis, 12/24/16 Allergies: Penicillin Medications: Aspirin 81 mg by mouth daily Brimonidine 0.2% 1 drop left eye twice daily Dorzolamide/timolol 1 drop left eye twice daily Hydrochlorothiazide 12.5 mg by mouth daily Insulin glargine 55 units subcutaneous daily Insulin lispro 6 units subcutaneously 3 times a day Isosorbide mononitrate 30 mg by mouth daily Nitrostat 0.4 mg sublingually as directed for chest pain Potassium 20 mEq by mouth daily Rosuvastatin 10 mg by mouth daily Sertraline 50 mg by mouth daily Tamsulosin 0.8 mg by mouth daily Cipro 500 mg by mouth twice a day Docusate 100 mg by mouth twice a day Acetaminophen 650 mg by mouth every 6 hours when necessary for pain Albuterol sulfate 2 puffs inhalation every 6 hours Social history: Patient is , lives with his spouse; ever smoked, denies any alcohol or illicit drug use. Physical examination: Since his arrival at [facility] the patient has been given a fluid bolus and IV started. With this fluid infusion the patient is feeling much improved. Current vital signs: Afebrile, 98.4; pulse 77, respirations 16, blood pressure 142/69 (initial blood pressure 92/51) Skin: Warm, no obvious jaundice Lungs: Clear to auscultation Cardiac: Regular rate, soft ejection murmur (previously noted - no obvious change) Abdomen: Soft, nontender. No peritoneal signs. No appreciable intra- abdominal masses or fullness. Bowel sounds are active and normal. The transverse incision right lower quadrant demonstrated a small amount of serosanguineous drainage at the lateral pole of the incision. 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 No rebound or CVA tendernes. Extremities: No obvious clubbing cyanosis or edema Impression: 81 yo approx 5 1/2 weeks s/p laparoscopy, open appendectomy returns to my office for post op follow up with complaints, fever, dizziness and weakness. The patient appeared to be somewhat dehydrated. Recent CT, 01/29/17 , demonstrated improvement of inflammatory changes in the appendectomy bed, resolution of prior described small abscess/seroma within the mesentery, and improving right lower quadrant fluid collection/abscess anterior abdominal wall. Physical examination demonstrated no significant abdominal tenderness or subcutaneous fluid/pus in the anterior abdominal wall. The lack of findings cannot completely exclude a worsening abscess, intra abdominal abscess or other process contributing to the patient current symptoms. The patient has been admitted for observation, CXR, labs and IV fluids. IV antibiotics (meropenem) will also be initiated. wall. His ambulation did not yield any evidence of an abscess that had developed since the CT Past Med Surg Social Fam HX - Past Medical History Medical history: diabetes, hyperlipidemia, hypertension, myocardial infarction Psychiatric history: no psych history - Past Surgical History Surgical History: coronary bypass (CABG) - Social History Smoking Status: Never smoker Smokeless Tobacco Status: No Alcohol use: none Drug use: none - Family History Father Living Status: Hx Family Cardiac Disorders: Yes Hx Family Respiratory Disorders: No Hx Family Cancer: No Hx Family GI Disorders: No Hx Family Endocrine Disorder: No Hx Family Neuromuscular Disorders: No Hx Family Neurologic Disorders: No Hx Family HEENT Disorders: No Hx Family Autoimmune Disorders: No Medications and Allergies Aspirin 81 mg PO DAILY 12/24/16 [History] Dorzolamide/Timolol [Cosopt] 1 drop LEFT EYE BID 12/24/16 [History] Hydrochlorothiazide 12.5 mg PO Q48H 12/24/16 [History] Insulin Glargine [Lantus] 55 unit SQ QAM 12/24/16 [History] Isosorbide MONOnitrate (24 HR) [Imdur] 30 mg PO DAILY 12/24/16 [History] Nitroglycerin [Nitrostat] 0.4 mg SL Q5M PRN 12/24/16 [History] Rosuvastatin Calcium [Crestor] 10 mg PO DAILY 12/24/16 [History] Sertraline [Zoloft] 50 mg PO DAILY 12/24/16 [History] Tamsulosin [Flomax] 0.8 mg PO DAILY 12/24/16 [History] Acetaminophen [Tylenol] 650 mg PO Q6HR PRN #0 tablet 12/31/16 [Rx] Albuterol Sulfate [Albuterol Inhaler] 2 puff IH [id number] inhaler 12/31/16 [Rx] Docusate [Colace] 100 mg PO BID capsule 12/31/16 [Rx] Insulin LISPRO [HumaLOG] 0 units SQ HS vial 12/31/16 [Rx] Brimonidine 0.2% [Alphagan] 1 drop LEFT EYE BID 01/12/17 [History] Insulin LISPRO [HumaLOG] 6 units SQ TIDAC PRN 01/12/17 [History] Acetaminophen [Tylenol] 650 mg PO Q6HR PRN #0 tablet 01/19/17 [Rx] Ciprofloxacin HCl [Cipro] 500 mg PO BID #20 tablet 01/19/17 [Rx] Lisinopril [Zestril] 10 mg PO DAILY #30 tablet 01/19/17 [Rx] Allergies Penicillins Allergy (Verified 01/11/17 21:40) Rash Review of Systems All systems PM: A 10-system review of systems was performed and is negative for pertinent findings except as documented above in the HPI. General Surgery Exam Initial Vital Signs Temp Pulse Resp BP Pulse Ox 98.4 F 89 16 92/51 94 L 02/01/17 16:21 02/01/17 16:21 02/01/17 16:21 02/01/17 16:21 02/01/17 16:21 Results - Labs 02/01/17 18:04 02/01/17 18:04 Abnormal lab results RBC 3.70 M/mcL (4.19-5.50) L 02/01/17 18:04 Hgb 10.4 g/dL (12.9-16.9) L 02/01/17 18:04 Hct 33.9 % (37.5-50.1) L 02/01/17 18:04 MCHC 30.7 g/dL (31.6-35.5) L 02/01/17 18:04 Sodium 133 mEq/L (136-145) L 02/01/17 18:04 Creatinine 1.52 mg/dL (0.72-1.25) H 02/01/17 18:04 Est GFR ( Amer) 54 (> 60) L 02/01/17 18:04 Est GFR (Non-Af Amer) 44 (> 60) L 02/01/17 18:04 Glucose 380 mg/dL (70-99) H 02/01/17 18:04 POC Glucose 408 (58-89) H* 02/01/17 16:20 Calcium 8.1 mg/dL (8.6-10.8) L 02/01/17 18:04 Diabetes panel 02/01/17 Range/Units 18:04 Sodium 133 L (136-145) mEq/L Potassium 4.5 (3.5-4.5) mEq/L Chloride 102 (98-109) mEq/L Carbon Dioxide 26 (19-29) mEq/L BUN 22 (8-26) mg/dL Creatinine 1.52 H (0.72-1.25) mg/dL Glucose 380 H (70-99) mg/dL Calcium 8.1 L (8.6-10.8) mg/dL Calcium panel 02/01/17 Range/Units 18:04 Calcium 8.1 L (8.6-10.8) mg/dL Pituitary panel 02/01/17 Range/Units 18:04 Sodium 133 L (136-145) mEq/L Potassium 4.5 (3.5-4.5) mEq/L Chloride 102 (98-109) mEq/L Carbon Dioxide 26 (19-29) mEq/L BUN 22 (8-26) mg/dL Creatinine 1.52 H (0.72-1.25) mg/dL Glucose 380 H (70-99) mg/dL Calcium 8.1 L (8.6-10.8) mg/dL Adrenal panel 02/01/17 Range/Units 18:04 Sodium 133 L (136-145) mEq/L Potassium 4.5 (3.5-4.5) mEq/L Chloride 102 (98-109) mEq/L Carbon Dioxide 26 (19-29) mEq/L BUN 22 (8-26) mg/dL Creatinine 1.52 H (0.72-1.25) mg/dL Glucose 380 H (70-99) mg/dL Calcium 8.1 L (8.6-10.8) mg/dL All other labs normal.
[2017-02-01] MEDS ORDERED: Nitroglycerin 0.4 MG TAB.SUBL SL PRN (19:53)
[2017-02-01] MEDS ORDERED: Acetaminophen 325 MG TABLET PO PRN (19:53)
[2017-02-01] MEDS ORDERED: Insulin DETEMIR 100 UNIT/ML X5UNITS SQ SCH (21:00)
[2017-02-01] MEDS: Dorzolamide/Timolol OPTH 10 ML BOTTLE LEFT EYE SCH (22:15)
[2017-02-02] MEDS: Meropenem 1,000 MG in 0.9 % Sodium Chloride Mini Bag 100 ML IVPB SCH ×4 (01:14→22:58)
[2017-02-02] MEDS: Insulin LISPRO 300 UNITS/3 ML VIAL SQ SCH ×7 (01:15→21:06)
[2017-02-02] MEDS: 0.9 % Sodium Chloride 1,000 ML IVC SCH ×2 (05:28→22:57)
[2017-02-02 06:06] LABS: Basophils % 0.3 %
[2017-02-02 06:18] LABS: BUN/Creatinine Ratio 17 (6-26); Blood Urea Nitrogen 19 mg/dL (8-26); Calcium 8.5 mg/dL (8.6-10.8); Carbon Dioxide 25 mEq/L (19-29); Chloride 101 mEq/L (98-109); Glucose 171 mg/dL (70-99); Osmolality,Calculated 284 (280-300); Potassium 4.7 mEq/L (3.5-4.5); Sodium 134 mEq/L (136-145); eGFR For African Americans > 60 (> 60); eGFR For Non-African Americans > 60 (> 60)
[2017-02-02 06:47] LABS: Eosinophils % 0.4 %; Hematocrit 40.8 % (37.5-50.1); Immature Granulocytes % 0.7 % (0-4); Immature Platelets 3.6 % (1.1-6.1); Lymphocytes # 0.5 K/mcL (0.6-4.6); Lymphocytes % 7.5 %; Mean Corpuscular HGB Conc 31.4 g/dL (31.6-35.5); Mean Corpuscular Volume 89.3 fL (83.0-100.0); Mean Platelet Volume 10.2 fL (9.4-12.4); Monocytes # 0.3 K/mcL (0.0-1.3); Platelet Count 217 K/mcL (140-400); Red Blood Count 4.57 M/mcL (4.19-5.50); Red Cell Distribution Width 14.1 % (11.5-14.5); Segmented Neutrophils % 86.1 %
[2017-02-02 06:50] LABS: Hemoglobin 12.8 g/dL (12.9-16.9); Neutrophils # 5.9 K/mcL (1.6-8.9)
[2017-02-02] MEDS ORDERED: Ondansetron 4 MG/2 ML VIAL IVP PRN (07:56)
[2017-02-02] MEDS ORDERED: Acetaminophen 650 MG RECTAL SUPP RC PRN (08:12)
[2017-02-02] MEDS: Aspirin 81 MG TAB.CHEW PO SCH (08:52)
[2017-02-02] MEDS: Isosorbide MONOnitrate (24 HR) 30 MG TAB.ER.24H PO SCH (08:52)
[2017-02-02] MEDS: hydroCHLOROthiazide 25 MG TABLET PO SCH (09:12)
[2017-02-02] MEDS: Dorzolamide/Timolol OPTH 10 ML BOTTLE LEFT EYE SCH ×2 (09:12→21:07)
--- NOTE | 2017-02-02 17:42 | General Surgery Progress Note ---
Date of Encounter: 02/02/17 Time of Encounter: 17:19 Subjective Narrative: Hospital Day #1- aware of events last evening. Fever to 102.8. BS 408 and 426 but with high sliding scale coverage and levemir - BS dropped to 25 and 26. BP also elevated. These issues have been corrected. Patient still c/o feeling poorly but current Vs - 99, pulse 81, respirations 18-20; blood pressure 123/63. Current Accu-Chek 134; range 127-200. Nursing report patient has been intermittently confused. Not obviously confused during my encounter. Lungs: Clear Cardiac: Regular rate, soft ejection murmur Abdomen: Soft, nontender. Small amount of purulent drainage from the lateral portion of the transverse incision right lower quadrant. Active bowel sounds; large soft BM this a.m. Urine output: approximately 400 mL Labs: White count 6.8, hemoglobin 12.8, hematocrit 40.8; platelet count 217, 000. Differential unremarkable except for lymphocyte count is borderline low at 0.5 Sodium 134, potassium 4.7, BUN 19, creatinine 1.14 (improved since admission) ; eGFR - has increased to greater than 60 Impression: fever to 102.8 with malaise and confusion - likely viral as patient' s , also ill with similar symptoms s/p laparoscopy, open appendectomy, 12/24/2016, for acute gangrenous perforated appendicitis post op wound infection and deep space abscess with radiographic evidence improvement (CT 01/29/2017). Continue meropenem. diabetes with acute episode hypoglycemia last evening Hypertension, hyperlipidemia coronary artery disease with prior myocardial infarction which appears stable History of CKD - 3; renal status improved with IV Fluids Objective Vital Signs - Last 8 Hours Temp Pulse Resp BP Pulse Ox 02/02/17 14:58 99 F 81 20 123/63 95 02/02/17 12:05 18 93 L 02/02/17 11:01 97.9 F 02/02/17 10:06 102.8 F H 82 16 102/55 92 L Intake and Output 02/02/17 02/02/17 02/02/17 07:59 15:59 23:59 Intake Total 1900 / 1900 100 / 100 Output Total 350 / 350 50 / 50 Balance 1550 / 1550 50 / 50 Intake: IV Fluids 1100 / 1100 100 / 100 0.9 % Sodium Chloride 1, 1000 / 1000 000 ML @ 100 mls/hr IVC . Q10H [facility] Rx#:[id number] Merrem 1,000 MG In 0.9 % 100 / 100 100 / 100 Sodium Chloride (Mini-Bag +) 100 ML @ 200 mls/hr IVPB Q8HR [facility] Rx#: [id number] Oral 800 / 800 Output: Urine 350 / 350 50 / 50 Other: Stool Size Large Stool Consistency soft Stool Color Brown # Urine Diapers 1 1 1 # Bowel Movement Diapers 1 Weight 90.3 kg Blood Glucose* 148 132 Patient Weight 02/02/17 23:59 Weight 90.3 kg - Labs 02/02/17 06:35 02/02/17 06:01 Diabetes panel 02/01/17 02/02/17 Range/Units 18:04 06:01 Sodium 133 L 134 L (136-145) mEq/L Potassium 4.5 4.7 H (3.5-4.5) mEq/L Chloride 102 101 (98-109) mEq/L Carbon Dioxide 26 25 (19-29) mEq/L BUN 22 19 (8-26) mg/dL Creatinine 1.52 H 1.14 (0.72-1.25) mg/dL Glucose 380 H 171 H (70-99) mg/dL Calcium 8.1 L 8.5 L (8.6-10.8) mg/dL Calcium panel 02/01/17 02/02/17 Range/Units 18:04 06:01 Calcium 8.1 L 8.5 L (8.6-10.8) mg/dL Pituitary panel 02/01/17 02/02/17 Range/Units 18:04 06:01 Sodium 133 L 134 L (136-145) mEq/L Potassium 4.5 4.7 H (3.5-4.5) mEq/L Chloride 102 101 (98-109) mEq/L Carbon Dioxide 26 25 (19-29) mEq/L BUN 22 19 (8-26) mg/dL Creatinine 1.52 H 1.14 (0.72-1.25) mg/dL Glucose 380 H 171 H (70-99) mg/dL Calcium 8.1 L 8.5 L (8.6-10.8) mg/dL Adrenal panel 02/01/17 02/02/17 Range/Units 18:04 06:01 Sodium 133 L 134 L (136-145) mEq/L Potassium 4.5 4.7 H (3.5-4.5) mEq/L Chloride 102 101 (98-109) mEq/L Carbon Dioxide 26 25 (19-29) mEq/L BUN 22 19 (8-26) mg/dL Creatinine 1.52 H 1.14 (0.72-1.25) mg/dL Glucose 380 H 171 H (70-99) mg/dL Calcium 8.1 L 8.5 L (8.6-10.8) mg/dL Consult Discharge Plan - Plan Referrals: Jhonatan Ely MD [Primary Care Provider] -
[2017-02-03] MEDS: 0.9 % Sodium Chloride 1,000 ML IVC SCH ×2 (01:05→14:15)
[2017-02-03] MEDS: Insulin LISPRO 300 UNITS/3 ML VIAL SQ SCH ×6 (03:22→21:56)
[2017-02-03 05:17] LABS: Basophils % 0.3 %; Eosinophils % 0.4 %; Hematocrit 31.4 % (37.5-50.1); Immature Granulocytes % 0.6 % (0-4); Lymphocytes # 1.1 K/mcL (0.6-4.6); Lymphocytes % 15.3 %; Mean Corpuscular HGB Conc 31.5 g/dL (31.6-35.5); Mean Corpuscular Hemoglobin 28.4 pg (28.0-33.3); Mean Corpuscular Volume 90.2 fL (83.0-100.0); Mean Platelet Volume 10.7 fL (9.4-12.4); Monocytes # 0.6 K/mcL (0.0-1.3); Monocytes % 8.5 %; Neutrophils # 5.2 K/mcL (1.6-8.9); Platelet Count 159 K/mcL (140-400); Red Blood Count 3.48 M/mcL (4.19-5.50); Red Cell Distribution Width 14.4 % (11.5-14.5); Segmented Neutrophils % 74.9 %
[2017-02-03 05:28] LABS: BUN/Creatinine Ratio 17 (6-26); Blood Urea Nitrogen 20 mg/dL (8-26); Calcium 7.9 mg/dL (8.6-10.8); Carbon Dioxide 24 mEq/L (19-29); Chloride 102 mEq/L (98-109); Glucose 157 mg/dL (70-99); Osmolality,Calculated 280 (280-300); Potassium 4.2 mEq/L (3.5-4.5); Sodium 132 mEq/L (136-145); eGFR For African Americans > 60 (> 60); eGFR For Non-African Americans > 60 (> 60)
[2017-02-03 05:37] LABS: Hemoglobin 9.9 g/dL (12.9-16.9)
[2017-02-03] MEDS: Aspirin 81 MG TAB.CHEW PO SCH (08:33)
[2017-02-03] MEDS: Isosorbide MONOnitrate (24 HR) 30 MG TAB.ER.24H PO SCH (08:34)
[2017-02-03] MEDS: Meropenem 1,000 MG in 0.9 % Sodium Chloride Mini Bag 100 ML IVPB SCH ×2 (08:34→16:26)
[2017-02-03] MEDS: Dorzolamide/Timolol OPTH 10 ML BOTTLE LEFT EYE SCH ×2 (08:37→20:31)
--- NOTE | 2017-02-03 20:08 | General Surgery Progress Note ---
Date of Encounter: 02/03/17 Time of Encounter: 19:30 Subjective Patient reports: feels better Narrative: Hospital day 2: Patient feeling much better. No recorded fevers this date, pulse 77, respirations 16, blood pressure 147/67. No further episodes of confusion. Patient's only complaint during my encounter is that of cough for which he is requesting cough suppressant. Lungs: Clear to auscultation, no obvious abdominal pain to deep inspiration Abdomen: Soft, nontender. Minimal purulent drainage from the lateral portion of the transverse incision right lower quadrant. A.m. labs - white count 6.9, hemoglobin 9.9 with hematocrit 31.4 - the decreased H&H likely due to fluids administered since admission. Platelet count 159,000 Differential remains within normal limits. Sodium 132, potassium 4.2, BUN 20 , creatinine 1.16; estimated GFR greater than 60 CT abdomen and pelvis was personally reviewed - findings include: Cholelithiasis without obvious pericholecystic inflammation; bibasilar opacities left greater than right; decreased right lower quadrant subcutaneous fluid; persistent/unchanged inflammation in the right lower quadrant abdomen; a tract without fluid or gas consistent with a persistent colocutaneous fistula. Impression: Significant clinical improvement; will continue meropenem to treat persistent inflammation RLQ following laparoscopy, open appendectomy for acute gangrenous perforated appendicitis 12/24/16. Increased bibasilar opacities which will be monitored; these may be due to aspiration. PA and lateral chest in the a.m. Hyponatremia - 132, likely due to hydration but without obvious symptoms Diabetes mellitus - stable Accu-Cheks in the last 24 hours Hypertension, hyperlipidemia - essentially stable Coronary artery disease with history of prior myocardial infarction - no evidence of acute cardiac changes History CKD- 3, renal status better with fluid administration Objective Vital Signs - Last 8 Hours Temp Pulse Resp BP Pulse Ox 02/03/17 19:08 98.9 F 77 16 147/67 94 L 02/03/17 16:06 16 96 02/03/17 15:00 98.7 F 71 16 125/56 95 Intake and Output 02/03/17 02/03/17 02/03/17 07:59 15:59 23:59 Intake Total 300 / 300 1220 / 1220 240 / 240 Output Total 900 / 900 900 / 900 Balance -600 / -600 320 / 320 240 / 240 Intake: IV Fluids 1100 / 1100 0.9 % Sodium Chloride 1, 1000 / 1000 000 ML @ 75 mls/hr IVC . [id number] [facility] Rx#: [id number] Merrem 1,000 MG In 0.9 % 100 / 100 Sodium Chloride (Mini-Bag +) 100 ML @ 200 mls/hr IVPB Q8HR [facility] Rx#: [id number] Oral 300 / 300 120 / 120 240 / 240 Output: Catheter 900 / 900 900 / 900 Other: Meal Breakfast Dinner Percent of Meal Consumed 50% 100% Stool Size Large Stool Consistency formed Stool Color Brown Blood Glucose* 137 184 259 - Labs 02/03/17 04:30 02/03/17 04:30 Diabetes panel 02/03/17 Range/Units 04:30 Sodium 132 L (136-145) mEq/L Potassium 4.2 (3.5-4.5) mEq/L Chloride 102 (98-109) mEq/L Carbon Dioxide 24 (19-29) mEq/L BUN 20 (8-26) mg/dL Creatinine 1.16 (0.72-1.25) mg/dL Glucose 157 H (70-99) mg/dL Calcium 7.9 L (8.6-10.8) mg/dL Calcium panel 02/03/17 Range/Units 04:30 Calcium 7.9 L (8.6-10.8) mg/dL Pituitary panel 02/03/17 Range/Units 04:30 Sodium 132 L (136-145) mEq/L Potassium 4.2 (3.5-4.5) mEq/L Chloride 102 (98-109) mEq/L Carbon Dioxide 24 (19-29) mEq/L BUN 20 (8-26) mg/dL Creatinine 1.16 (0.72-1.25) mg/dL Glucose 157 H (70-99) mg/dL Calcium 7.9 L (8.6-10.8) mg/dL Adrenal panel 02/03/17 Range/Units 04:30 Sodium 132 L (136-145) mEq/L Potassium 4.2 (3.5-4.5) mEq/L Chloride 102 (98-109) mEq/L Carbon Dioxide 24 (19-29) mEq/L BUN 20 (8-26) mg/dL Creatinine 1.16 (0.72-1.25) mg/dL Glucose 157 H (70-99) mg/dL Calcium 7.9 L (8.6-10.8) mg/dL Consult Discharge Plan - Plan Referrals: Jhonatan Ely MD [Primary Care Provider] -
[2017-02-04] MEDS: Meropenem 1,000 MG in 0.9 % Sodium Chloride Mini Bag 100 ML IVPB SCH ×3 (00:18→16:53)
[2017-02-04] MEDS: Insulin LISPRO 300 UNITS/3 ML VIAL SQ SCH ×6 (01:09→21:18)
[2017-02-04] MEDS: 0.9 % Sodium Chloride 1,000 ML IVC SCH (05:18)
[2017-02-04 05:55] LABS: Basophils % 0.5 %; Eosinophils # 0.1 K/mcL (0.0-0.6); Eosinophils % 2.4 %; Hematocrit 33.5 % (37.5-50.1); Hemoglobin 10.5 g/dL (12.9-16.9); Immature Granulocytes % 0.7 % (0-4); Lymphocytes # 0.8 K/mcL (0.6-4.6); Mean Corpuscular HGB Conc 31.3 g/dL (31.6-35.5); Mean Corpuscular Hemoglobin 27.7 pg (28.0-33.3); Mean Corpuscular Volume 88.4 fL (83.0-100.0); Mean Platelet Volume 10.2 fL (9.4-12.4); Monocytes # 0.3 K/mcL (0.0-1.3); Monocytes % 7.8 %; Neutrophils # 2.8 K/mcL (1.6-8.9); Platelet Count 141 K/mcL (140-400); Red Blood Count 3.79 M/mcL (4.19-5.50); Segmented Neutrophils % 68.6 %
[2017-02-04 06:05] LABS: Alanine Aminotransferase 38 Units/L (0-55); Albumin 2.1 g/dL (3.5-5.0); Albumin/Globulin Ratio 0.5 (1.1-2.2); Alkaline Phosphatase 68 Units/L (38-126); Aspartate Amino Transferase 61 Units/L (5-34); BUN/Creatinine Ratio 18 (6-26); Bilirubin,Total 0.7 mg/dL (0.2-1.2); Blood Urea Nitrogen 22 mg/dL (8-26); Carbon Dioxide 24 mEq/L (19-29); Chloride 103 mEq/L (98-109); Globulin 4.2 g/dL (2.4-3.5); Glucose 174 mg/dL (70-99); Osmolality,Calculated 282 (280-300); Potassium 4.3 mEq/L (3.5-4.5); Sodium 132 mEq/L (136-145); Total Protein 6.3 g/dL (6.0-8.3); eGFR For African Americans > 60 (> 60); eGFR For Non-African Americans 58 (> 60)
[2017-02-04] MEDS: Isosorbide MONOnitrate (24 HR) 30 MG TAB.ER.24H PO SCH (09:27)
[2017-02-04] MEDS: Aspirin 81 MG TAB.CHEW PO SCH (09:27)
[2017-02-04] MEDS: hydroCHLOROthiazide 25 MG TABLET PO SCH (09:27)
[2017-02-04] MEDS: Dorzolamide/Timolol OPTH 10 ML BOTTLE LEFT EYE SCH ×2 (09:29→21:20)
[2017-02-04] MEDS ORDERED: D5% in Water 1,000 ML IV PRN (18:44)
--- NOTE | 2017-02-04 18:51 | General Surgery Progress Note ---
Date of Encounter: 02/04/17 Time of Encounter: 18:46 Subjective Patient reports: feels better Narrative: Hospital day 3: Patient feeling better, voicing no complaints. Indicates drainage from the transverse incision right lower quadrant has diminished Maximum temperature 99.7; currently 99.0; pulse 71, respirations 15, blood pressure 129/65. Most recent Accu-Chek 230, range 156 to 2:30- we will increase sliding scale coverage from low coverage to medium Lungs: Clear, no obvious abdominal pain with deep inspiration Abdomen: Soft, nontender; manipulation of the wound in the right lower quadrant demonstrated no increased drainage. CT abdomen and pelvis reviewed again with [facility]. Impression: patient improved, no further confusion, weakness or reports malaise. Plan: continue meropenem. remove urinary catheter encourage activity OOB. Objective Vital Signs - Last 8 Hours Temp Pulse Resp BP Pulse Ox 02/04/17 15:54 16 97 02/04/17 14:31 99.0 F 71 15 129/65 97 02/04/17 11:57 16 95 Intake and Output 02/04/17 02/04/17 02/04/17 07:59 15:59 23:59 Intake Total 1100 / 1100 1020 / 1020 120 / 120 Output Total 3300 / 3300 900 / 900 Balance 1100 / 1100 -2280 / -2280 -780 / -780 Intake: IV Fluids 1100 / 1100 100 / 100 0.9 % Sodium Chloride 1, 1000 / 1000 000 ML @ 75 mls/hr IVC . [id number] [facility] Rx#: [id number] Merrem 1,000 MG In 0.9 % 100 / 100 100 / 100 Sodium Chloride (Mini-Bag +) 100 ML @ 200 mls/hr IVPB Q8HR [facility] Rx#: [id number] Oral 920 / 920 120 / 120 Output: Urine 2900 / 2900 Straight Cath 900 / 900 Catheter 400 / 400 Other: Meal Lunch Dinner Percent of Meal Consumed 75% 85% Blood Glucose* 142 274 230 - Labs 02/04/17 05:11 02/04/17 05:11 Diabetes panel 02/04/17 Range/Units 05:11 Sodium 132 L (136-145) mEq/L Potassium 4.3 (3.5-4.5) mEq/L Chloride 103 (98-109) mEq/L Carbon Dioxide 24 (19-29) mEq/L BUN 22 (8-26) mg/dL Creatinine 1.20 (0.72-1.25) mg/dL Glucose 174 H (70-99) mg/dL Calcium 8.0 L (8.6-10.8) mg/dL AST 61 H (5-34) Units/L ALT 38 (0-55) Units/L Alkaline Phosphatase 68 (38-126) Units/L Albumin 2.1 L (3.5-5.0) g/dL Calcium panel 02/04/17 Range/Units 05:11 Calcium 8.0 L (8.6-10.8) mg/dL Albumin 2.1 L (3.5-5.0) g/dL Pituitary panel 02/04/17 Range/Units 05:11 Sodium 132 L (136-145) mEq/L Potassium 4.3 (3.5-4.5) mEq/L Chloride 103 (98-109) mEq/L Carbon Dioxide 24 (19-29) mEq/L BUN 22 (8-26) mg/dL Creatinine 1.20 (0.72-1.25) mg/dL Glucose 174 H (70-99) mg/dL Calcium 8.0 L (8.6-10.8) mg/dL Adrenal panel 02/04/17 Range/Units 05:11 Sodium 132 L (136-145) mEq/L Potassium 4.3 (3.5-4.5) mEq/L Chloride 103 (98-109) mEq/L Carbon Dioxide 24 (19-29) mEq/L BUN 22 (8-26) mg/dL Creatinine 1.20 (0.72-1.25) mg/dL Glucose 174 H (70-99) mg/dL Calcium 8.0 L (8.6-10.8) mg/dL Total Bilirubin 0.7 (0.2-1.2) mg/dL AST 61 H (5-34) Units/L ALT 38 (0-55) Units/L Alkaline Phosphatase 68 (38-126) Units/L Albumin 2.1 L (3.5-5.0) g/dL Consult Discharge Plan - Plan Referrals: Jhonatan Ely MD [Primary Care Provider] -
[2017-02-05] MEDS: Meropenem 1,000 MG in 0.9 % Sodium Chloride Mini Bag 100 ML IVPB SCH ×4 (00:21→23:59)
[2017-02-05] MEDS: 0.9 % Sodium Chloride 1,000 ML IVC SCH ×3 (00:21→15:56)
[2017-02-05] MEDS: Insulin LISPRO 300 UNITS/3 ML VIAL SQ SCH ×7 (00:28→23:57)
[2017-02-05 05:41] LABS: Basophils % 0.2 %; Eosinophils # 0.1 K/mcL (0.0-0.6); Eosinophils % 2.6 %; Hematocrit 34.9 % (37.5-50.1); Hemoglobin 11.1 g/dL (12.9-16.9); Immature Granulocytes % 0.4 % (0-4); Lymphocytes # 0.6 K/mcL (0.6-4.6); Lymphocytes % 12.6 %; Mean Corpuscular HGB Conc 31.8 g/dL (31.6-35.5); Mean Corpuscular Hemoglobin 27.9 pg (28.0-33.3); Mean Corpuscular Volume 87.7 fL (83.0-100.0); Mean Platelet Volume 10.6 fL (9.4-12.4); Monocytes # 0.4 K/mcL (0.0-1.3); Neutrophils # 3.9 K/mcL (1.6-8.9); Platelet Count 149 K/mcL (140-400); Red Blood Count 3.98 M/mcL (4.19-5.50); Red Cell Distribution Width 13.7 % (11.5-14.5); Segmented Neutrophils % 77.2 %
[2017-02-05 05:54] LABS: BUN/Creatinine Ratio 18 (6-26); Blood Urea Nitrogen 19 mg/dL (8-26); Calcium 8.1 mg/dL (8.6-10.8); Carbon Dioxide 21 mEq/L (19-29); Chloride 101 mEq/L (98-109); Glucose 182 mg/dL (70-99); Osmolality,Calculated 279 (280-300); Potassium 4.1 mEq/L (3.5-4.5); Sodium 131 mEq/L (136-145); eGFR For African Americans > 60 (> 60); eGFR For Non-African Americans > 60 (> 60)
[2017-02-05] MEDS: Aspirin 81 MG TAB.CHEW PO SCH (08:24)
[2017-02-05] MEDS: Isosorbide MONOnitrate (24 HR) 30 MG TAB.ER.24H PO SCH (08:24)
[2017-02-05] MEDS: Dorzolamide/Timolol OPTH 10 ML BOTTLE LEFT EYE SCH ×2 (08:25→20:32)
--- NOTE | 2017-02-05 19:52 | General Surgery Progress Note ---
Date of Encounter: 02/05/17 Time of Encounter: 19:47 Subjective Narrative: hospital day 4: Patient feeling well, voicing no complaints Afebrile, 98.1; pulse 77, respirations 18, blood pressure 126/71 Lungs: Clear Abdomen: Soft, nontender. Scant drainage via incision right lower quadrant. laboratories: White count 5.0; hemoglobin 11.1, hematocrit 34.9. plan 149,000 Sodium 131, potassium 4.1, chloride 101, BUN 19, creatinine 1.06; estimated GFR greater than 60 Accu-Cheks 157-314 Impression: patient appears to be responding to IV ATB (meropenem) Complaints on admission - weakness, dizziness, fever - resolved hyponatremia without obvious neurologic symptoms continued improvement abscess RLQ and anterior abdominal wall; colocutaneous fistula per CT appears to be healing. CKD-3 - stabilized with IVF during this hospitalization Diabetes mellitus - continue sliding scale coverage Objective Vital Signs - Last 8 Hours Temp Pulse Resp BP Pulse Ox 02/05/17 19:28 98.1 F 77 18 126/71 98 02/05/17 15:49 98.1 F 80 18 116/67 95 02/05/17 15:39 16 116/67 97 Intake and Output 02/05/17 02/05/17 02/05/17 07:59 15:59 23:59 Intake Total 100 / 100 1220 / 1220 360 / 360 Output Total 400 / 400 450 / 450 Balance -300 / -300 770 / 770 360 / 360 Intake: IV Fluids 100 / 100 1100 / 1100 0.9 % Sodium Chloride 1, 1000 / 1000 000 ML @ 75 mls/hr IVC . [id number] [facility] Rx#: [id number] Merrem 1,000 MG In 0.9 % 100 / 100 100 / 100 Sodium Chloride (Mini-Bag +) 100 ML @ 200 mls/hr IVPB Q8HR [facility] Rx#: [id number] Oral 0 / 0 120 / 120 360 / 360 Output: Urine 400 / 400 450 / 450 Other: Meal Lunch Dinner Percent of Meal Consumed 100% 95% Stool Size Moderate # Voids 1 1 # Bowel Movements 1 Weight 87.9 kg 89.981 kg Blood Glucose* 184 314 157 Patient Weight 02/05/17 23:59 Weight 89.981 kg - Labs 02/05/17 04:30 02/05/17 04:30 Diabetes panel 02/05/17 Range/Units 04:30 Sodium 131 L (136-145) mEq/L Potassium 4.1 (3.5-4.5) mEq/L Chloride 101 (98-109) mEq/L Carbon Dioxide 21 (19-29) mEq/L BUN 19 (8-26) mg/dL Creatinine 1.06 (0.72-1.25) mg/dL Glucose 182 H (70-99) mg/dL Calcium 8.1 L (8.6-10.8) mg/dL Calcium panel 02/05/17 Range/Units 04:30 Calcium 8.1 L (8.6-10.8) mg/dL Pituitary panel 02/05/17 Range/Units 04:30 Sodium 131 L (136-145) mEq/L Potassium 4.1 (3.5-4.5) mEq/L Chloride 101 (98-109) mEq/L Carbon Dioxide 21 (19-29) mEq/L BUN 19 (8-26) mg/dL Creatinine 1.06 (0.72-1.25) mg/dL Glucose 182 H (70-99) mg/dL Calcium 8.1 L (8.6-10.8) mg/dL Adrenal panel 02/05/17 Range/Units 04:30 Sodium 131 L (136-145) mEq/L Potassium 4.1 (3.5-4.5) mEq/L Chloride 101 (98-109) mEq/L Carbon Dioxide 21 (19-29) mEq/L BUN 19 (8-26) mg/dL Creatinine 1.06 (0.72-1.25) mg/dL Glucose 182 H (70-99) mg/dL Calcium 8.1 L (8.6-10.8) mg/dL Consult Discharge Plan - Plan Referrals: Jhonatan Ely MD [Primary Care Provider] -
[2017-02-06] MEDS: Insulin LISPRO 300 UNITS/3 ML VIAL SQ SCH ×5 (04:43→21:14)
[2017-02-06] MEDS: hydroCHLOROthiazide 25 MG TABLET PO SCH (09:45)
[2017-02-06] MEDS: Meropenem 1,000 MG in 0.9 % Sodium Chloride Mini Bag 100 ML IVPB SCH ×3 (09:47→23:27)
[2017-02-06] MEDS: Aspirin 81 MG TAB.CHEW PO SCH (09:47)
[2017-02-06] MEDS: Isosorbide MONOnitrate (24 HR) 30 MG TAB.ER.24H PO SCH (09:47)
[2017-02-06] MEDS: Dorzolamide/Timolol OPTH 10 ML BOTTLE LEFT EYE SCH ×2 (09:48→20:10)
--- NOTE | 2017-02-06 12:29 | General Surgery Progress Note ---
Date of Encounter: 02/06/17 Time of Encounter: 12:19 Subjective Patient reports: no new complaints, feels better Narrative: Hospital day 5: Patient resting comfortably, voicing no complaints. Afebrile, 98.0, pulse 71, respirations 16-18, blood pressure 129/67 Lungs: Clear to auscultation; no abdominal pain on deep inspiration Abdomen: Soft, nontender. Minimal, seropurulent drainage from the wound. No obvious subcutaneous fluid or abscess cavity detected Active bowel sounds, no obvious intra-abdominal masses, no rebound. Impression: Satisfactory status Status post laparoscopy, open appendectomy for an acutely gangrenous perforated appendicitis, 12/24/16. His was complicated by a Postoperative abscess anterior abdominal wall with radiologic evidence of a colo-cutaneous fistula. The patient had been improving/responding to oral antibiotics, however, resulted to my office on 02/01/17 with weakness dizziness and fever. His was also ill with similar symptoms. The patient was admitted via an IV fluids and IV antibiotics with a satisfactory response. He T of the abdomen and pelvis was repeated during this hospitalization showing cholelithiasis without obvious inflammatory changes, by basilar opacities left greater than right; persistent but decreased subcutaneous fluid in the right lower anterior abdominal wall but persistent/unchanged inflammation the right lower quadrant of the abdomen. It is this finding for which the patient remains in the hospital on IV meropenem. Hyponatremia, sodium 131 without obvious symptoms Diabetes mellitus - blood sugars have increased with current range 147 to 264 despite increase sliding scale coverage to medium. Will increase coverage to high sliding scale Hypertension patient has occasionally required IV hydralazine for elevated blood pressures Hyperlipidemia Coronary artery disease with history of prior myocardial infarction - no acute coronary changes during this hospitalization CKD-3 - renal status improved with IV fluids Objective Vital Signs - Last 8 Hours Temp Pulse Resp BP Pulse Ox 02/06/17 11:50 18 97 02/06/17 11:04 98.0 F 71 16 129/67 95 02/06/17 08:08 98.0 F 75 16 176/80 96 02/06/17 07:32 18 95 Intake and Output 02/05/17 02/06/17 02/06/17 23:59 07:59 15:59 Intake Total 1560 / 1560 100 / 100 340 / 340 Output Total 575 / 575 825 / 825 450 / 450 Balance 985 / 985 -725 / -725 -110 / -110 Intake: IV Fluids 400 / 400 100 / 100 100 / 100 0.9 % Sodium Chloride 1, 300 / 300 000 ML @ 75 mls/hr IVC . [id number] [facility] Rx#: [id number] Merrem 1,000 MG In 0.9 % 100 / 100 100 / 100 100 / 100 Sodium Chloride (Mini-Bag +) 100 ML @ 200 mls/hr IVPB Q8HR [facility] Rx#: [id number] Oral 1160 / 1160 240 / 240 Output: Urine 575 / 575 825 / 825 450 / 450 Other: Meal Dinner Breakfast Percent of Meal Consumed 95% 100% # Voids 1 Weight 90.1 kg Blood Glucose* 132 192 264 Patient Weight 02/06/17 23:59 Weight 90.1 kg - Labs 02/05/17 04:30 02/05/17 04:30 Consult Discharge Plan - Plan Referrals: Jhonatan Ely MD [Primary Care Provider] -
[2017-02-07] MEDS: Insulin LISPRO 300 UNITS/3 ML VIAL SQ SCH ×6 (01:13→20:43)
[2017-02-07 04:25] LABS: Basophils % 0.4 %; Eosinophils # 0.3 K/mcL (0.0-0.6); Eosinophils % 6.8 %; Hemoglobin 11.6 g/dL (12.9-16.9); Immature Granulocytes % 0.6 % (0-4); Lymphocytes # 1.7 K/mcL (0.6-4.6); Lymphocytes % 35.9 %; Mean Corpuscular HGB Conc 32.2 g/dL (31.6-35.5); Mean Corpuscular Hemoglobin 28.6 pg (28.0-33.3); Mean Corpuscular Volume 88.9 fL (83.0-100.0); Mean Platelet Volume 10.8 fL (9.4-12.4); Monocytes # 0.4 K/mcL (0.0-1.3); Neutrophils # 2.2 K/mcL (1.6-8.9); Platelet Count 185 K/mcL (140-400); Red Blood Count 4.05 M/mcL (4.19-5.50); Red Cell Distribution Width 13.8 % (11.5-14.5); Segmented Neutrophils % 47.3 %
[2017-02-07 04:50] LABS: BUN/Creatinine Ratio 21 (6-26); Blood Urea Nitrogen 27 mg/dL (8-26); Calcium 8.6 mg/dL (8.6-10.8); Carbon Dioxide 25 mEq/L (19-29); Chloride 104 mEq/L (98-109); Glucose 96 mg/dL (70-99); Osmolality,Calculated 287 (280-300); Potassium 3.9 mEq/L (3.5-4.5); Sodium 136 mEq/L (136-145); eGFR For African Americans > 60 (> 60); eGFR For Non-African Americans 54 (> 60)
[2017-02-07 05:02] LABS: Platelet Estimate Normal (Normal)
[2017-02-07] MEDS: Meropenem 1,000 MG in 0.9 % Sodium Chloride Mini Bag 100 ML IVPB SCH ×2 (10:13→17:13)
[2017-02-07] MEDS: Dorzolamide/Timolol OPTH 10 ML BOTTLE LEFT EYE SCH ×2 (10:14→20:43)
[2017-02-07] MEDS: Aspirin 81 MG TAB.CHEW PO SCH (10:15)
[2017-02-07] MEDS: Isosorbide MONOnitrate (24 HR) 30 MG TAB.ER.24H PO SCH (10:15)
[2017-02-07] MEDS: hydroCHLOROthiazide 25 MG TABLET PO SCH (10:16)
--- NOTE | 2017-02-07 11:15 | General Surgery Progress Note ---
Date of Encounter: 02/07/17 Time of Encounter: 11:10 Subjective Patient reports: no new complaints Narrative: Hospital Day #6 - patient indicates that he is feeling well. Voicing no complaints. BP appears to be slightly improved. Afeb, VSS lungs: Clear Abdomen: Soft nontender. No rebound. Transverse incision RLQ with small amount drainage. No obvious subcutaneous fluid collection or abscess. No obvious intra abdominal masses or fullness. Active bowel sounds. Laboratories: WBC 4.7, Hgb 11.6, Hct 36.0 Electrolytes stable and within normal limits BUN, Cr have elevated - 27, 1.29 respectively; eGFR 54 Plan: continue Meropenem CT abd/pelvis in AM Objective Vital Signs - Last 8 Hours Temp Pulse Resp BP Pulse Ox 02/07/17 07:20 97.8 F 73 16 164/77 97 02/07/17 04:25 16 95 02/07/17 03:49 97.9 F 79 15 181/71 98 Intake and Output 02/06/17 02/07/17 02/07/17 23:59 07:59 15:59 Intake Total 500 / 500 500 / 500 240 / 240 Output Total 350 / 350 Balance 500 / 500 150 / 150 240 / 240 Intake: IV Fluids 200 / 200 Merrem 1,000 MG In 0.9 % 200 / 200 Sodium Chloride (Mini-Bag +) 100 ML @ 200 mls/hr IVPB Q8HR [facility] Rx#: [id number] Oral 300 / 300 500 / 500 240 / 240 Output: Urine 350 / 350 Other: Meal Breakfast Percent of Meal Consumed 100% # Voids 1 Weight 89.811 kg Blood Glucose* 213 151 Patient Weight 02/07/17 23:59 Weight 89.811 kg - Labs 02/07/17 03:43 02/07/17 03:43 Diabetes panel 02/07/17 Range/Units 03:43 Sodium 136 (136-145) mEq/L Potassium 3.9 (3.5-4.5) mEq/L Chloride 104 (98-109) mEq/L Carbon Dioxide 25 (19-29) mEq/L BUN 27 H (8-26) mg/dL Creatinine 1.29 H (0.72-1.25) mg/dL Glucose 96 (70-99) mg/dL Calcium 8.6 (8.6-10.8) mg/dL Calcium panel 02/07/17 Range/Units 03:43 Calcium 8.6 (8.6-10.8) mg/dL Pituitary panel 02/07/17 Range/Units 03:43 Sodium 136 (136-145) mEq/L Potassium 3.9 (3.5-4.5) mEq/L Chloride 104 (98-109) mEq/L Carbon Dioxide 25 (19-29) mEq/L BUN 27 H (8-26) mg/dL Creatinine 1.29 H (0.72-1.25) mg/dL Glucose 96 (70-99) mg/dL Calcium 8.6 (8.6-10.8) mg/dL Adrenal panel 02/07/17 Range/Units 03:43 Sodium 136 (136-145) mEq/L Potassium 3.9 (3.5-4.5) mEq/L Chloride 104 (98-109) mEq/L Carbon Dioxide 25 (19-29) mEq/L BUN 27 H (8-26) mg/dL Creatinine 1.29 H (0.72-1.25) mg/dL Glucose 96 (70-99) mg/dL Calcium 8.6 (8.6-10.8) mg/dL Consult Discharge Plan - Plan Referrals: Jhonatan Ely MD [Primary Care Provider] -
[2017-02-08] MEDS: Insulin LISPRO 300 UNITS/3 ML VIAL SQ SCH ×5 (01:00→12:33)
[2017-02-08] MEDS: Meropenem 1,000 MG in 0.9 % Sodium Chloride Mini Bag 100 ML IVPB SCH (06:22)
[2017-02-08] MEDS: Dorzolamide/Timolol OPTH 10 ML BOTTLE LEFT EYE SCH (09:39)
[2017-02-08] MEDS: Aspirin 81 MG TAB.CHEW PO SCH (09:40)
[2017-02-08] MEDS: hydroCHLOROthiazide 25 MG TABLET PO SCH (09:40)
[2017-02-08] MEDS: Isosorbide MONOnitrate (24 HR) 30 MG TAB.ER.24H PO SCH (09:40)
[2017-02-08 10:50] VITALS: BP 92/59
--- NOTE | 2017-02-08 12:49 | General Surgery Progress Note ---
Date of Encounter: 02/08/17 Time of Encounter: 12:46 Subjective Patient reports: feels better Narrative: General Surgery Progress Note / Discharge Summary Hospital Day #7: patient feeling well, voicing no complaints; afebrile, pulse 85 , respirations 18; blood pressure labile per Nursing reports but patient has been hemodynamically stable for the duration of this hospital stay. CT personally reviewed with [facility]. Findings include: scattered gallstones, without obvious wall thickening or pericholecystic inflammation; Decreased size of fluid collection in the subcutaneous soft tissues; continued decrease in the inflammatory changes surrounding the cecum. Lungs: Clear abdomen: soft, nontender; minimal drainage from the transverse incision right lower quadrant Impression: 81 yo admitted, 02/01/17, after presenting to my office with dizziness, weakness and near syncope prior to presenting to my office The patient's was ill at home, suggestive of a viral syndrome. The patient was status post open appendectomy for acute gangrenous perforated appendicitis, 12/24/16. Due to this status the patient was admitted for further evaluation and care. The patient had been on oral ATB prior to this hospitalization. IV ATB were ordered for this hospital stay.. The patient 's symptoms / complaints resolved quickly but the IV ATB were continued based on CT findings. The patient remained stable with serial CT imaging showing slow resolution of the intra abdominal inflammation related to the acute gangrenous appendicitis. CT 02/08/2017, was personally reviewed, demonstrating sufficient improvement to allow patient discharge home. Discharge Diagnoses: persistent right lower quadrant inflammation; resolving abscess subcutaneous abscess, also resolving Coronary artery disease with prior yocardial infarction - s/p CABG and coronary artery stenting diabetes mellitus CKD-3 - stable Hypertension Hyperlipidemia hyponatremia without obvious symptoms bibasilar pulmonary opacities cholelithiasis without obvious symptoms. Plan: discharge home with outpatient follow up my office continue oral ATB post discharge. Objective Vital Signs - Last 8 Hours Temp Pulse Resp BP Pulse Ox 02/08/17 11:32 18 95 02/08/17 10:40 97.9 F 85 17 92/59 95 02/08/17 08:06 18 96 02/08/17 06:57 97.7 F 78 18 173/80 96 Intake and Output 02/07/17 02/08/17 02/08/17 23:59 07:59 15:59 Intake Total 100 / 100 350 / 350 Output Total 6000 / 6000 Balance 100 / 100 350 / 350 -6000 / -6000 Intake: IV Fluids 100 / 100 Merrem 1,000 MG In 0.9 % 100 / 100 Sodium Chloride (Mini-Bag +) 100 ML @ 200 mls/hr IVPB Q12HR [facility] Rx#: [id number] Oral 350 / 350 Output: Urine 6000 / 6000 Other: Meal npo Stool Size Large Stool Consistency loose Stool Color Brown Weight 89.811 kg Blood Glucose* 104 164 287 Patient Weight 02/08/17 23:59 Weight 89.811 kg - Labs 02/07/17 03:43 02/07/17 03:43 Consult Discharge Plan - Plan Instructions: Open Appendectomy (DC), Abscess (GEN) Referrals: Rehan Leone MD [Non-Partnered Physician] - 02/12/17 1:40 pm Jhonatan Ely MD [Primary Care Provider] - 02/12/17 10:00 am
--- NOTE | 2017-02-08 13:46 | Discharge Summary ---
Outpatient Proc Discharge Plan - Plan Instructions: Open Appendectomy (DC), Abscess (GEN) Additional Instructions: regular diet Activity as tolerated Dressing change daily Patient may shower, wash incision with soap and water Resume home meds follow-up my office, 02/12/17 Prescriptions: Ciprofloxacin HCl [Cipro] 500 mg PO BID #14 tablet MetroNIDAZOLE [Flagyl] 250 mg PO Q6H #28 tablet Home Medications: Hydrochlorothiazide 12.5 mg PO Q48H 12/24/16 [History] Insulin Glargine [Lantus] 55 unit SQ QAM 12/24/16 [History] Isosorbide MONOnitrate (24 HR) [Imdur] 30 mg PO DAILY 12/24/16 [History] Nitroglycerin [Nitrostat] 0.4 mg SL Q5M PRN 12/24/16 [History] Rosuvastatin Calcium [Crestor] 10 mg PO DAILY 12/24/16 [History] Sertraline [Zoloft] 50 mg PO DAILY 12/24/16 [History] Tamsulosin [Flomax] 0.8 mg PO DAILY 12/24/16 [History] Albuterol Sulfate [Albuterol Inhaler] 2 puff IH [id number] inhaler 12/31/16 [Rx] Insulin LISPRO [HumaLOG] 6 units SQ TIDAC PRN 01/12/17 [History] Acetaminophen [Tylenol] 650 mg PO Q6HR PRN #0 tablet 01/19/17 [Rx] Lisinopril [Zestril] 10 mg PO DAILY #30 tablet 01/19/17 [Rx] Aspirin 81 mg PO DAILY tab.chew 02/08/17 [Rx] Brimonidine 0.2% [Alphagan] 1 drop LEFT EYE BID bottle 02/08/17 [Rx] Ciprofloxacin HCl [Cipro] 500 mg PO BID #14 tablet 02/08/17 [Rx] Dorzolamide/Timolol [Cosopt] 1 drop LEFT EYE BID bottle 02/08/17 [Rx] MetroNIDAZOLE [Flagyl] 250 mg PO Q6H #28 tablet 02/08/17 [Rx] Sertraline [Zoloft] 50 mg PO DAILY tablet 02/08/17 [Rx]
== END 2017-02-08 13:42 | disposition home or self-care (01) | DRG 602 ==
LOC: 3BNU
PROVIDERS: ADMIT Surgery; ATTEND Surgery

== ENCOUNTER 2017-10-20 11:24 | Inpatient (IN) ==
[2017-10-20 12:11] LABS: Basophils % 0.6 %; Eosinophils % 0.2 %; Hematocrit 44.7 % (37.5-50.1); Hemoglobin 14.5 g/dL (12.9-16.9); Immature Granulocytes % 0.4 % (0-4); Lymphocytes # 0.2 K/mcL (0.6-4.6); Lymphocytes % 4.5 %; Mean Corpuscular HGB Conc 32.4 g/dL (31.6-35.5); Mean Corpuscular Hemoglobin 28.8 pg (28.0-33.3); Mean Corpuscular Volume 88.9 fL (83.0-100.0); Mean Platelet Volume 10.6 fL (9.4-12.4); Monocytes # 0.4 K/mcL (0.0-1.3); Monocytes % 6.8 %; Neutrophils # 4.6 K/mcL (1.6-8.9); Platelet Count 139 K/mcL (140-400); Red Blood Count 5.03 M/mcL (4.19-5.50); Red Cell Distribution Width 12.6 % (11.5-14.5); Segmented Neutrophils % 87.5 %
[2017-10-20 12:15] LABS: INR 1.2
[2017-10-20 12:17] LABS: Activated Partial Thrombo Time 27.8 Seconds (26.0-36.0)
[2017-10-20 12:26] LABS: Calcium 9.7 mg/dL (8.6-10.8)
--- NOTE | 2017-10-20 12:33 | Emergency Department Note ---
START Narrative - START START: I examined this patient and my medical decision-making was reviewed with the Resident Physician. I agree with the documented findings, disposition and treatment plan as described except to the extent set forth below. 82-year-old male presents emergency room for confusion fevers and right ears. Started yesterday afternoon. States he was having some urinary incontinence associated with the fevers and writers overnight. Answers for possible urinary check infection. His chest x-ray shows questionable pneumonia per radiology in the right lung however patient denies any cough or sputum production. He denies abdominal pain. No other complaints at this time. Workup for possible sepsis versus UTI.
[2017-10-20 12:39] LABS: Bilirubin,Urine Small (Negative); Blood,Urine Moderate (Negative); Clarity,Urine Clear (Clear); Color,Urine Dark Yellow (Yellow); Glucose,Urine (UA) 250 mg/dL (Normal); Ketones,Urine Negative (Negative); Leukocyte Esterase,Urine Negative (Negative); Nitrite,Urine Negative (Negative); Protein,Urine >=300 mg/dL (Neg-Trace); Urobilinogen,Urine Normal (Normal)
[2017-10-20 12:42] LABS: Bacteria,Urine None Seen per hpf (None-Few); Hyaline Casts,Urine None Seen per lpf (None-Few); Squamous Epithelial Cell,Urine Many per lpf (None-Few)
--- NOTE | 2017-10-20 12:51 | Emergency Department Note ---
Disposition Clinical Impression: Elevated troponin, NSTEMI (non-ST elevated myocardial infarction) Disposition: Home, Self-Care Condition: Good Time of Disposition: 14:36 General Adult HPI - General Chief complaint: ED Syncope Stated complaint: syncope, "incontenance" Time Seen by Provider: 10/20/17 11:43 Source: patient, family Limitations: no limitations Nursing Notes Reviewed: Yes Vital Signs Reviewed: Yes - History of Present Illness HPI Narrative: 82-year-old male with history of hypertension, hyperlipidemia, diabetes, CAD s/ p CABG presents to the ED for feeling of weakness, chills and urinary incontinence. Yesterday patient received his influenza vaccine. Since then he has been feeling chills and rigors with a temperature of 101. Around 1630 he took to Tylenol PM and went to sleep around 1800. Throughout the night he had a get up from bed to urinate and states he oozed out of bed as he slid out of bed. Denies any loss of consciousness. Denies any head injury or neck pain. He takes a baby aspirin. He denies any chest pain, shortness of breath, cough. Denies any recent hospitalizations. He has been taken a water pill and has been urinating more frequently. Denies any dysuria. Denies any back pain or saddle anesthesia. Pain Scale: 0 - Related Data Home Medications Medication Instructions Recorded Confirmed Insulin Glargine [Lantus] 55 unit SQ QAM 12/24/16 10/20/17 Isosorbide MONOnitrate (24 HR) 30 mg PO DAILY 12/24/16 10/20/17 [Imdur] Nitroglycerin [Nitrostat] 0.4 mg SL Q5M PRN 12/24/16 10/20/17 Rosuvastatin Calcium [Crestor] 10 mg PO DAILY 12/24/16 10/20/17 Sertraline [Zoloft] 50 mg PO DAILY 12/24/16 10/20/17 Tamsulosin [Flomax] 0.8 mg PO DAILY 12/24/16 10/20/17 Insulin LISPRO [HumaLOG] 6 units SQ TIDAC PRN 01/12/17 10/20/17 Previous Rx's Medication Instructions Recorded Albuterol Sulfate [Albuterol 2 puff IH [id number] inhaler 12/31/16 Inhaler] Acetaminophen [Tylenol] 650 mg PO Q6HR PRN #0 tablet 01/19/17 Aspirin 81 mg PO DAILY tab.chew 02/08/17 Brimonidine 0.2% [Alphagan] 1 drop LEFT EYE BID bottle 02/08/17 Allergies Allergy/AdvReac Type Severity Reaction Status Date / Time Penicillins Allergy Rash Verified 10/20/17 11:40 All systems ED: reviewed and negative except as stated. Review of Systems: As Per HPI Constitutional: Reports: fever, chills, weakness ENT ED: Denies: congestion, dysphagia Cardiovascular: Denies: chest pain, dyspnea on exertion Respiratory: Denies: cough, dyspnea Gastrointestinal: Denies: abdominal pain, nausea, vomiting Genitourinary: Denies: urgency, dysuria Musculoskeletal: Denies: back pain, neck pain Integumentary: Denies: rash, abrasion Neurological: Denies: headache, abnormal gait Psychiatric: Denies: anxiety, depression Past Medical History - Past Medical History Attestation: Yes The following information was validated with the patient. Source: patient Medical history: Reports: diabetes, hyperlipidemia, hypertension, myocardial infarction Surgical history: Reports: coronary bypass (CABG) Psychiatric history: Reports: no psych history - Social History Smoking Status: Never smoker Smokeless Tobacco Status: No Alcohol use: Reports: none Drug use: Reports: none Physical Exam - General Limitations: no limitations General appearance: alert, in no apparent distress - Head Head exam: atraumatic, normocephalic, normal inspection - Eye Eye exam: Present: normal appearance, PERRL, EOMI - ENT ENT exam: normal exam, normal oropharynx, mucous membranes moist - Neck Neck exam: Present: normal inspection, full ROM, trachea midline - Chest Chest inspection: Present: normal inspection, symmetric chest wall rise, other ( midsternal scar consistent with CABG) - Respiratory Respiratory exam: Present: normal lung sounds bilaterally - Cardiovascular Cardiovascular exam: Present: regular rate, normal rhythm, normal heart sounds. Absent: systolic murmur, diastolic murmur - Abdominal Exam Abdominal exam: Present: soft, Non-Tender, normal bowel sounds. Absent: tenderness, distention, guarding, rebound, rigidity - Extremities Exam Extremities exam: Present: normal inspection, full ROM, normal capillary refill. Absent: tenderness, pedal edema, calf tenderness - Back Exam Back exam: Present: normal inspection, full ROM. Absent: tenderness, vertebral tenderness - Neurological Exam Neurological exam: Present: alert, oriented X3, CN II-XII intact - Skin Skin exam: Present: warm, dry, intact, normal color Course Course Narrative: 82-year-old male presents with urinary incontinence, weakness. He has been incontinent for the past 24 hours. He has been taken water pill and due to his weakness he has not been able to make to the bathroom in time. He denies any urinary complaints. Since his vaccination he has been feeling chills, rigors and fever. Denies any chest pain shortness of breath or head injury. He denies loss of consciousness as he slid out of bed. Concern for cardiac etiology he will be evaluated. Also get urinalysis to evaluate for possible urinary tract infection. Patients in agreement with this plan. - Reevaluation(s) Reevaluation #1: Urinalysis is not consistent with infection. He has some renal insufficiency 1.4 that appears chronic. Surprisingly he had a elevated troponin 0.15. Again he has no chest pain or EKG changes consistent with ischemia. History of bypass in the past, prior troponin values within normal limits. He takes aspirin. Neurologically intact without any focal neural deficits. Patient was afebrile hereby has been complaining of the fevers and chills. No cough or shortness of breath. 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 Do not agree with pneumonia. Will get a CT of the chest with contrast to evaluate for possible PE and pneumonia. Patients in agreement with this plan. Impression is elevated troponin and NSTEMI. Patient has been given full dose aspirin he placed on heparin drip. He denies any bloody stool, black tarry stool or hemoptysis. Reevaluation #2: CT of chest is negative for PE. Remains in no acute distress. Stable for admission. - Consultations Consultation #1: Spoke to admitting physician Dr. Arce, patient will be admitted for NSTEMI and elevated troponin and weakness. No further orders at this time. CT of the chest did not reveal PE Vital Signs Temperature 99.0 F 10/20/17 11:35 Pulse Rate 74 10/20/17 11:35 Respiratory Rate 15 10/20/17 11:35 Blood Pressure 148/73 10/20/17 11:35 O2 Sat by Pulse Oximetry 95 10/20/17 11:35 Temperature 98.2 F 10/20/17 16:08 Pulse Rate 76 10/20/17 16:08 Respiratory Rate 16 10/20/17 16:08 Blood Pressure 181/85 10/20/17 16:08 O2 Sat by Pulse Oximetry 98 10/20/17 16:08 Oxygen Delivery Oxygen Delivery Room Air Medical Decision Making - Medical Records Medical records reviewed: Yes I reviewed the patient's medical records. - Lab Data Lab results reviewed: Yes I reviewed the patient's lab results. Result diagrams: 10/20/17 14:45 10/20/17 11:53 Lab Results 10/20/17 10/20/17 10/20/17 Range/Units 11:53 11:53 11:53 WBC 5.3 (4.3-11.1) K/mcL RBC 5.03 (4.19-5.50) M/mcL Hgb 14.5 (12.9-16.9) g/dL Hct 44.7 (37.5-50.1) % MCV 88.9 (83.0-100.0) fL MCH 28.8 (28.0-33.3) pg MCHC 32.4 (31.6-35.5) g/dL RDW 12.6 (11.5-14.5) % Plt Count 139 L (140-400) K/mcL MPV 10.6 (9.4-12.4) fL Immature Gran % 0.4 (0-4) % Seg Neutrophils % 87.5 % Lymphocytes % 4.5 % Monocytes % 6.8 % Eosinophils % 0.2 % Basophils % 0.6 % Neutrophils # 4.6 (1.6-8.9) K/mcL Lymphocytes # 0.2 L (0.6-4.6) K/mcL Monocytes # 0.4 (0.0-1.3) K/mcL Eosinophils # 0.0 (0.0-0.6) K/mcL Basophils # 0.0 (0.0-0.2) K/mcL PT 13.0 H (9.4-12.1) Seconds INR 1.2 APTT 27.8 (26.0-36.0) Seconds Sodium 135 L (136-145) mEq/L Potassium 4.0 (3.5-4.5) mEq/L Chloride 103 (98-109) mEq/L Carbon Dioxide 25 (19-29) mEq/L BUN 19 (8-26) mg/dL Creatinine 1.49 H (0.72-1.25) mg/dL Est GFR ( Amer) 55 L (> 60) Est GFR (Non-Af Amer) 45 L (> 60) BUN/Creatinine Ratio 13 (6-26) Glucose 221 H (70-99) mg/dL POC Glucose (58-89) Calculated Osmolality 289 (280-300) Lactic Acid (0.5-2.2) mmol/L Calcium 9.7 (8.6-10.8) mg/dL Troponin I (0-0.03) ng/mL Urine Color (Yellow) Urine Clarity (Clear) Urine pH (5.0-8.0) pH Units Ur Specific [place] (1.010-1.025) Urine Protein (Neg-Trace) mg/dL Urine Glucose (UA) (Normal) mg/dL Urine Ketones (Negative) mg/dL Urine Blood (Negative) Urine Nitrite (Negative) Urine Bilirubin (Negative) Urine Urobilinogen (Normal) mg/dL Ur Leukocyte Esterase (Negative) Urine Microscopic RBC (0-3) per hpf Urine Microscopic WBC (0-3) per hpf Ur Squamous Epith Cells (None-Few) per lpf Urine Bacteria (None-Few) per hpf Hyaline Casts (None-Few) per lpf 10/20/17 10/20/17 10/20/17 Range/Units 11:53 11:53 11:55 WBC (4.3-11.1) K/mcL RBC (4.19-5.50) M/mcL Hgb (12.9-16.9) g/dL Hct (37.5-50.1) % MCV (83.0-100.0) fL MCH (28.0-33.3) pg MCHC (31.6-35.5) g/dL RDW (11.5-14.5) % Plt Count (140-400) K/mcL MPV (9.4-12.4) fL Immature Gran % (0-4) % Seg Neutrophils % % Lymphocytes % % Monocytes % % Eosinophils % % Basophils % % Neutrophils # (1.6-8.9) K/mcL Lymphocytes # (0.6-4.6) K/mcL Monocytes # (0.0-1.3) K/mcL Eosinophils # (0.0-0.6) K/mcL Basophils # (0.0-0.2) K/mcL PT (9.4-12.1) Seconds INR APTT (26.0-36.0) Seconds Sodium (136-145) mEq/L Potassium (3.5-4.5) mEq/L Chloride (98-109) mEq/L Carbon Dioxide (19-29) mEq/L BUN (8-26) mg/dL Creatinine (0.72-1.25) mg/dL Est GFR ( Amer) (> 60) Est GFR (Non-Af Amer) (> 60) BUN/Creatinine Ratio (6-26) Glucose (70-99) mg/dL POC Glucose 188 H (58-89) Calculated Osmolality (280-300) Lactic Acid 1.0 (0.5-2.2) mmol/L Calcium (8.6-10.8) mg/dL Troponin I 0.15 H* (0-0.03) ng/mL Urine Color (Yellow) Urine Clarity (Clear) Urine pH (5.0-8.0) pH Units Ur Specific [place] (1.010-1.025) Urine Protein (Neg-Trace) mg/dL Urine Glucose (UA) (Normal) mg/dL Urine Ketones (Negative) mg/dL Urine Blood (Negative) Urine Nitrite (Negative) Urine Bilirubin (Negative) Urine Urobilinogen (Normal) mg/dL Ur Leukocyte Esterase (Negative) Urine Microscopic RBC (0-3) per hpf Urine Microscopic WBC (0-3) per hpf Ur Squamous Epith Cells (None-Few) per lpf Urine Bacteria (None-Few) per hpf Hyaline Casts (None-Few) per lpf 10/20/17 Range/Units 12:31 WBC (4.3-11.1) K/mcL RBC (4.19-5.50) M/mcL Hgb (12.9-16.9) g/dL Hct (37.5-50.1) % MCV (83.0-100.0) fL MCH (28.0-33.3) pg MCHC (31.6-35.5) g/dL RDW (11.5-14.5) % Plt Count (140-400) K/mcL MPV (9.4-12.4) fL Immature Gran % (0-4) % Seg Neutrophils % % Lymphocytes % % Monocytes % % Eosinophils % % Basophils % % Neutrophils # (1.6-8.9) K/mcL Lymphocytes # (0.6-4.6) K/mcL Monocytes # (0.0-1.3) K/mcL Eosinophils # (0.0-0.6) K/mcL Basophils # (0.0-0.2) K/mcL PT (9.4-12.1) Seconds INR APTT (26.0-36.0) Seconds Sodium (136-145) mEq/L Potassium (3.5-4.5) mEq/L Chloride (98-109) mEq/L Carbon Dioxide (19-29) mEq/L BUN (8-26) mg/dL Creatinine (0.72-1.25) mg/dL Est GFR ( Amer) (> 60) Est GFR (Non-Af Amer) (> 60) BUN/Creatinine Ratio (6-26) Glucose (70-99) mg/dL POC Glucose (58-89) Calculated Osmolality (280-300) Lactic Acid (0.5-2.2) mmol/L Calcium (8.6-10.8) mg/dL Troponin I (0-0.03) ng/mL Urine Color Dark Yellow (Yellow) Urine Clarity Clear (Clear) Urine pH 6.0 (5.0-8.0) pH Units Ur Specific [place] 1.030 H (1.010-1.025) Urine Protein >=300 H (Neg-Trace) mg/dL Urine Glucose (UA) 250 H (Normal) mg/dL Urine Ketones Negative (Negative) mg/dL Urine Blood Moderate H (Negative) Urine Nitrite Negative (Negative) Urine Bilirubin Small H (Negative) Urine Urobilinogen Normal (Normal) mg/dL Ur Leukocyte Esterase Negative (Negative) Urine Microscopic RBC 5-15 H (0-3) per hpf Urine Microscopic WBC 5-15 H (0-3) per hpf Ur Squamous Epith Cells Many H (None-Few) per lpf Urine Bacteria None Seen (None-Few) per hpf Hyaline Casts None Seen (None-Few) per lpf - Radiology Data Radiology results reviewed: Yes I reviewed the patient's radiology results. Chest X-Ray 11/29/17 11:56 IMPRESSION: Atelectasis or pneumonia in the right lung base D/ / Ezequiel Ruiz MD / Ezequiel Ruiz MD Interpreting Provider: Ezequiel Ruiz MD Chest CTA 10/20/17 13:15 IMPRESSION: No evidence of pulmonary embolism or acute pulmonary abnormality. D/ / Ezequeil Ruiz MD / Ezequiel Ruiz MD Interpreting Provider: Ezequiel Ruiz MD - EKG Data EKG #1 EKG attestation: Yes I reviewed and interpreted this EKG.
[2017-10-20] MEDS ORDERED: Aspirin 81 MG TAB.CHEW PO STA (12:52)
[2017-10-20] MEDS ORDERED: 0.9 % Sodium Chloride 500 ML IVC ONE (13:27)
[2017-10-20] MEDS ORDERED: *HR* Heparin 5,000 UNIT/ML VIAL IVP PRN ×2 (14:36)
[2017-10-20] MEDS ORDERED: *HR* Heparin 5,000 UNIT/ML VIAL IVP ONE (14:36)
[2017-10-20] MEDS ORDERED: Heparin 25,000 UNIT/500 ML D5W 25,000 UNIT/500 ML MLS IVC SCH (14:45)
[2017-10-20 15:05] LABS: Hematocrit 41.1 % (37.5-50.1); Mean Corpuscular HGB Conc 31.6 g/dL (31.6-35.5); Mean Corpuscular Hemoglobin 28.8 pg (28.0-33.3); Mean Corpuscular Volume 90.9 fL (83.0-100.0); Mean Platelet Volume 10.4 fL (9.4-12.4); Platelet Count 122 K/mcL (140-400); Red Blood Count 4.52 M/mcL (4.19-5.50); Red Cell Distribution Width 12.7 % (11.5-14.5)
[2017-10-20 15:19] LABS: INR 1.2
[2017-10-20 15:22] LABS: Activated Partial Thrombo Time 27.3 Seconds (26.0-36.0)
[2017-10-20] MEDS ORDERED: Acetaminophen 325 MG TABLET PO PRN ×2 (22:07→22:10)
[2017-10-20] MEDS ORDERED: Naloxone 0.4 MG/ML INJ IVP PRN (22:10)
[2017-10-20] MEDS ORDERED: *HR* Dextrose 50 % in Water (Syg) 50 ML SYRINGE IVP PRN (22:14)
[2017-10-20] MEDS ORDERED: D5% in Water 1,000 ML IVC PRN (22:14)
[2017-10-20] MEDS ORDERED: Dextrose Gel 15 GM PO PRN ×2 (22:14)
--- NOTE | 2017-10-20 22:18 | Internal Med History&Physical ---
Date of Encounter: 10/20/17 Time of Encounter: 22:15 Assessment and Plan (1) UTI (urinary tract infection) Current visit: Yes Status: Acute sepsis screen pend empiric IV cipro IVF Qualifiers: Urinary tract infection type: acute cystitis Hematuria presence: without hematuria Qualified Code(s): N30.00 - Acute cystitis without hematuria (2) CAD (coronary artery disease) Current visit: Yes Status: Acute continue cardiac meds Qualifiers: Associated angina: without angina Qualified Code(s): I25.810 - Atherosclerosis of coronary artery bypass graft(s) without angina pectoris (3) Elevated troponin Current visit: Yes Status: Acute trend trop continue heparin gtt in the ED treat infection consult cards to eval EKG RBBB may have had a subacute event ?? (4) Diabetes 1.5, managed as type 1 Current visit: Yes Status: Acute insulin continue Internal Medicine - H&P: HPI Chief complaint: Fever/chills, cofusion, urinary incontinence History of present illness: Mr. Villa is a 82 year old male who presents with Fever/chills, cofusion, urinary incontinence. Suspect to be 2/2 UTI He blames his symptoms to a flu shot at wednesday 10 a.m. Shortly after, he developed fever 101 that got better with tylenol. He subsequently developed urine incontinence x 3 associated with confusion, chills. Of note, he has a hx CABG and stents approx 8 years ago and visits with Dr Cerda. He has a prior [place]. EKG reviewed by self with rate 70, NSR, RBBB that appears new ? CT/CT angio chest IMPRESSION: No evidence of pulmonary embolism or acute pulmonary abnormality. XR/XR chest 1V portable IMPRESSION: Atelectasis or pneumonia in the right lung base Past Med Surg Social Fam HX - Past Medical History Medical history: diabetes, hyperlipidemia, hypertension, myocardial infarction Psychiatric history: no psych history - Past Surgical History Surgical History: coronary bypass (CABG) - Social History Smoking Status: Never smoker Smokeless Tobacco Status: No Alcohol use: none Drug use: none - Family History Father Living Status: Hx Family Cardiac Disorders: Yes Hx Family Respiratory Disorders: No Hx Family Cancer: No Hx Family GI Disorders: No Hx Family Endocrine Disorder: No Hx Family Neuromuscular Disorders: No Hx Family Neurologic Disorders: No Hx Family HEENT Disorders: No Hx Family Autoimmune Disorders: No Internal Medicine - H&P: Meds Insulin Glargine [Lantus] 55 unit SQ QAM 12/24/16 [History] Isosorbide MONOnitrate (24 HR) [Imdur] 30 mg PO DAILY 12/24/16 [History] Nitroglycerin [Nitrostat] 0.4 mg SL Q5M PRN 12/24/16 [History] Rosuvastatin Calcium [Crestor] 10 mg PO DAILY 12/24/16 [History] Sertraline [Zoloft] 50 mg PO DAILY 12/24/16 [History] Tamsulosin [Flomax] 0.8 mg PO DAILY 12/24/16 [History] Albuterol Sulfate [Albuterol Inhaler] 2 puff IH [id number] inhaler 12/31/16 [Rx] Insulin LISPRO [HumaLOG] 6 units SQ TIDAC PRN 01/12/17 [History] Acetaminophen [Tylenol] 650 mg PO Q6HR PRN #0 tablet 01/19/17 [Rx] Aspirin 81 mg PO DAILY tab.chew 02/08/17 [Rx] Brimonidine 0.2% [Alphagan] 1 drop LEFT EYE BID bottle 02/08/17 [Rx] 3 Allergy/AdvReac Type Severity Reaction Status Date / Time Penicillins Allergy Rash Verified 10/20/17 11:40 All Systems PM: A 10-system review of systems was performed and is negative for pertinent findings except as documented above in the HPI. Review of systems: ROS 14 point review of systems reviewed as best as possible given presentation. Pertinent positive or negative as per HPI or otherwise reviewed as negative - Constitutional Vitals: Temp Pulse Resp BP Pulse Ox 98.4 F 76 18 195/90 95 10/20/17 20:38 10/20/17 20:38 10/20/17 20:38 10/20/17 20:38 10/20/17 20:38 Exam: General - AAO x 3 Psych - Appropriate affect/speech. No agitation Eyes - ZAIRA. Eye lids intact. No scleral icterus Neuro - No gross peripheral or central neuro deficits with intact CN 2-12 exam Heart - Sinus. RRR. S1 and S2 present. No added HS/murmurs appreciated. No elevated JVD appreciated. Lung - Adequate air entry b/l, No crackles/wheezes appreciated GI - Soft, non-tender. No hepatosplenomegaly/ascites. BS+ - No CVA/suprapubic tenderness or palpable bladder distension Skin - Intact. No rash/petechiae/ecchymosis. Warm extremities MSK - Joints with normal ROM. No joint swellings Internal Med - H&P Results - Labs CBC & Chem 7: 10/20/17 14:45 10/20/17 11:53 Labs: Short CBC 10/20/17 Range/Units 14:45 WBC 4.6 (4.3-11.1) K/mcL Hgb 13.0 D (12.9-16.9) g/dL Hct 41.1 (37.5-50.1) % Plt Count 122 L (140-400) K/mcL
[2017-10-20] MEDS: 0.9 % Sodium Chloride 1,000 ML IVC SCH (22:31)
[2017-10-21] MEDS: Insulin LISPRO 300 UNITS/3 ML VIAL SQ SCH ×5 (02:30→21:11)
[2017-10-21 05:46] LABS: Basophils % 0.5 %; Eosinophils % 0.8 %; Hematocrit 41.4 % (37.5-50.1); Hemoglobin 13.7 g/dL (12.9-16.9); Immature Granulocytes % 0.5 % (0-4); Lymphocytes # 0.6 K/mcL (0.6-4.6); Lymphocytes % 14.6 %; Mean Corpuscular HGB Conc 33.1 g/dL (31.6-35.5); Mean Corpuscular Hemoglobin 29.8 pg (28.0-33.3); Mean Platelet Volume 10.4 fL (9.4-12.4); Monocytes # 0.4 K/mcL (0.0-1.3); Monocytes % 10.6 %; Neutrophils # 2.9 K/mcL (1.6-8.9); Platelet Count 108 K/mcL (140-400); Red Cell Distribution Width 12.8 % (11.5-14.5)
[2017-10-21 05:49] LABS: BUN/Creatinine Ratio 14 (6-26); Blood Urea Nitrogen 18 mg/dL (8-26); Calcium 9.3 mg/dL (8.6-10.8); Carbon Dioxide 25 mEq/L (19-29); Chloride 104 mEq/L (98-109); Glucose 220 mg/dL (70-99); Magnesium 1.7 mg/dL (1.6-2.6); Osmolality,Calculated 289 (280-300); Potassium 3.8 mEq/L (3.5-4.5); Sodium 135 mEq/L (136-145); eGFR For African Americans > 60 (> 60); eGFR For Non-African Americans 52 (> 60)
[2017-10-21] MEDS ORDERED: *HR* Enoxaparin 30 MG/0.3 ML SYRINGE SQ SCH (06:00)
--- NOTE | 2017-10-21 07:20 | Electrocardiograph Report ---
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
[2017-10-21] MEDS: Aspirin 81 MG TAB.CHEW PO SCH (08:27)
[2017-10-21] MEDS: Isosorbide MONOnitrate (24 HR) 30 MG TAB.ER.24H PO SCH (08:27)
[2017-10-21] MEDS: Insulin DETEMIR 100 UNIT/ML X5UNITS SQ SCH (08:31)
--- NOTE | 2017-10-21 08:57 | Cardiology Consult Note ---
<Aiden Moore - Last Filed: 10/21/17 16:27> Date of Encounter: 10/21/17 Time of Encounter: 10:00 Assessment and Plan (1) Elevated troponin Current Visit: Yes Status: Acute Elevated but adynamic troponin in setting of infection with new RBBB, unlikely nstemi The patient denies any history of chest pain or dyspnea Trop 0.15-> 0.11 -> 0.10 -> 0.09 The patient remains asymptomatic at this time Elevated trops likely to be secondary to general health status at this time Recommend tighter control of BP when possible, PRN hydralazine is ordered We will continue to follow tomorrow Discussion w patient/family: The assessment and plan as outlined above was discussed with the patient and/or family members who expressed understanding and agreement. All questions were answered. Thank you for involving us in the care of your patient. Please call with any questions. History of Present Illness Consult date: 10/20/17 Requesting physician: Gaurav Herrera Consult reason: New RBBB with elevated troponin Chief complaint: AMS with fever and chills History of present illness: Mr. Villa is a 82 year old male with history significant for DM1.5, HLD, HTN, CAD s/p CABG 8yrs ago and stent at unknown time who presented to the ED due to altered mental status, fever and chills, and episodes of incontinence. The patient states that in the morning yesterday he was feeling confused, was having fevers and was chilled. He came to the ED for these symptoms, at which time he was found to have a UTI with elevated troponins and new RBBB on EKG. He has no history of active chest pain, and says that while he's short of breath now, he is always short of breath and this does not feel significantly different from baseline. He does admit that he's noticed his blood pressure has been elevated. Generally he believes he is borderline low, but his BP has been highly elevated for several days. In the ED, the patient was given ASA and started on a heparin drip. Past Med Surg Social Fam HX - Past Medical History Medical history: diabetes, hyperlipidemia, hypertension, myocardial infarction Psychiatric history: no psych history - Past Surgical History Surgical History: coronary bypass (CABG) - Social History Smoking Status: Never smoker Smokeless Tobacco Status: No Alcohol use: none Drug use: none - Family History Father Living Status: Hx Family Cardiac Disorders: Yes Hx Family Respiratory Disorders: No Hx Family Cancer: No Hx Family GI Disorders: No Hx Family Endocrine Disorder: No Hx Family Neuromuscular Disorders: No Hx Family Neurologic Disorders: No Hx Family HEENT Disorders: No Hx Family Autoimmune Disorders: No Medications and Allergies Insulin Glargine [Lantus] 55 unit SQ QAM 12/24/16 [History] Isosorbide MONOnitrate (24 HR) [Imdur] 30 mg PO DAILY 12/24/16 [History] Nitroglycerin [Nitrostat] 0.4 mg SL Q5M PRN 12/24/16 [History] Rosuvastatin Calcium [Crestor] 10 mg PO DAILY 12/24/16 [History] Sertraline [Zoloft] 50 mg PO DAILY 12/24/16 [History] Tamsulosin [Flomax] 0.8 mg PO DAILY 12/24/16 [History] Albuterol Sulfate [Albuterol Inhaler] 2 puff IH [id number] inhaler 12/31/16 [Rx] Insulin LISPRO [HumaLOG] 6 units SQ TIDAC PRN 01/12/17 [History] Acetaminophen [Tylenol] 650 mg PO Q6HR PRN #0 tablet 01/19/17 [Rx] Aspirin 81 mg PO DAILY tab.chew 02/08/17 [Rx] Brimonidine 0.2% [Alphagan] 1 drop LEFT EYE BID bottle 02/08/17 [Rx] 3 Allergy/AdvReac Type Severity Reaction Status Date / Time Penicillins Allergy Rash Verified 10/20/17 11:40 All Systems Review: A 10-system review of systems was performed and is negative for pertinent findings except as documented above in the HPI. - Constitutional Constitutional: chills, fatigue, fever(s), no anorexia, no daytime sleepiness, no frequent falls, no headache(s), no malaise, no night sweats - EENT Eyes: no blurred vision, no loss of vision - Cardiovascular Cardiovascular: as per HPI, diaphoresis, dyspnea at rest, dyspnea on exertion, syncope, no chest pain at rest, no chest pain with exertion, no claudication, no irregular heart rhythm, no orthopnea, no palpitations - Respiratory Respiratory: dyspnea, no cough - Gastrointestinal Gastrointestinal: no dysphagia, no melena - Musculoskeletal Musculoskeletal: no back pain, no muscle cramps, no myalgias - Neurological Neurological: syncope, no abnormal speech, no loss of vision, no memory loss - Psychiatric Psychiatric: anxiety, no depression, no panic attacks Physical Examination Vital Signs, Last 4 Hours Temp Pulse Resp BP Pulse Ox 10/21/17 07:49 16 98 10/21/17 07:00 81 17 178/83 98 10/21/17 05:35 98.4 F 78 16 175/88 95 General: Conversant, No Apparent Distress HEENT: Atraumatic, Normocephaly, Mucus Membranes Moist Neck: No JVD, Normal carotid pulses Cardiac: Reg Rate and Rhythm, Normal S1 and S2, No Murmur Lungs: Normal Breath Sounds, No Wheeze, Rales, Rhonchi Neuro: Alert and responsive, No focal deficits noted Abdomen: Soft, Non-Tender Skin: No rashes noted on visualized skin Musculoskeletal: No Chest Wall Tenderness Extremities: No Clubbing, No Cyanosis, No Edema, Normal Pulses Results 10/21/17 05:24 10/21/17 05:24 Lab Results 10/20/17 10/21/17 10/21/17 22:48 05:24 05:24 WBC 4.0 L Hgb 13.7 Hct 41.4 Plt Count 108 L APTT Sodium 135 L Potassium 3.8 Chloride 104 Carbon Dioxide 25 BUN 18 Creatinine 1.32 H Glucose 220 H Calcium 9.3 Magnesium 1.7 Troponin I 0.11 H* 10/21/17 10/21/17 05:24 05:24 WBC Hgb Hct Plt Count APTT 66.2 H Sodium Potassium Chloride Carbon Dioxide BUN Creatinine Glucose Calcium Magnesium Troponin I 0.10 H* Consult Discharge Plan - Plan Referrals: Jhonatan Ely MD [Primary Care Provider] - <Flako Gonzales - Last Filed: 10/21/17 17:21> Date of Encounter: 10/21/17 - Attending Attestation I examined this patient and my medical decision-making was reviewed with the Resident Physician. I agree with the documented findings, disposition and treatment plan as described except to the extent set forth below. Presented with AMS and fever. Mildy elevated trop. likely secondary. Doubt ACS. Assessment and Plan Discussion w patient/family: The assessment and plan as outlined above was discussed with the patient and/or family members who expressed understanding and agreement. All questions were answered. Thank you for involving us in the care of your patient. Please call with any questions. History of Present Illness History of present illness: Mr. Villa is a 82 year old male All Systems Review: A 10-system review of systems was performed and is negative for pertinent findings except as documented above in the HPI. Physical Examination Vital Signs, Last 4 Hours Pulse Resp BP Pulse Ox 10/21/17 16:00 80 17 153/74 97 10/21/17 15:49 16 97 Results 10/21/17 05:24 10/21/17 05:24 Lab Results 10/20/17 10/21/17 10/21/17 22:48 05:24 05:24 WBC 4.0 L Hgb 13.7 Hct 41.4 Plt Count 108 L APTT Sodium 135 L Potassium 3.8 Chloride 104 Carbon Dioxide 25 BUN 18 Creatinine 1.32 H Glucose 220 H Calcium 9.3 Magnesium 1.7 Troponin I 0.11 H* 10/21/17 10/21/17 10/21/17 05:24 05:24 09:47 WBC Hgb Hct Plt Count APTT 66.2 H Sodium Potassium Chloride Carbon Dioxide BUN Creatinine Glucose Calcium Magnesium Troponin I 0.10 H* 0.09 H* 10/21/17 13:10 WBC Hgb Hct Plt Count APTT 62.6 H Sodium Potassium Chloride Carbon Dioxide BUN Creatinine Glucose Calcium Magnesium Troponin I
[2017-10-21] MEDS ORDERED: NON-FORMULARY MEDICATION 1 EACH EACH (Insulin Glargine [Lantus] 55 UNIT) SQ SCH (09:00)
[2017-10-21] MEDS: 0.9 % Sodium Chloride 1,000 ML IVC SCH (11:55)
[2017-10-21] MEDS ORDERED: Acetaminophen 325 MG TABLET PO PRN (13:30)
--- NOTE | 2017-10-21 13:52 | Internal Med Progress Note ---
Date of Encounter: 10/21/17 Time of Encounter: 09:30 - Assessment and plan (1) Diabetes mellitus Current Visit: Yes Status: Chronic Assessment and plan: Blood sugars are elevated. We will change his Levemir to 30 units twice daily. We will increase sliding scale coverage. Continue diabetic diet. Qualifiers: Diabetes mellitus type: type 2 Diabetes mellitus complication status: with hyperglycemia Diabetes mellitus snf insulin use: with snf use Qualified Code(s): E11.65 - Type 2 diabetes mellitus with hyperglycemia; Z79.4 - jail (current) use of insulin; Z79.4 - jail (current) use of insulin ; Z79.4 - jail (current) use of insulin; Z79.4 - long term (current) use of insulin (2) CAD (coronary artery disease) Current Visit: Yes Status: Chronic Assessment and plan: With mild troponin elevation. Trending down. Patient was started on IV heparin drip overnight. Cardiology consult pending. Denies any chest pain at this time. Continue aspirin, statin and carvedilol Qualifiers: Associated angina: without angina Qualified Code(s): I25.810 - Atherosclerosis of coronary artery bypass graft(s) without angina pectoris (3) Elevated troponin Current Visit: Yes Status: Acute Assessment and plan: Concerning for non-ST elevation IL. Patient on IV heparin drip cardiology has been consulted. Troponin trending down. High risk for complications related to IV heparin use (4) UTI (urinary tract infection) Current Visit: Yes Status: Acute Assessment and plan: Treating with IV Cipro. We will await culture results. Qualifiers: Urinary tract infection type: acute cystitis Hematuria presence: without hematuria Qualified Code(s): N30.00 - Acute cystitis without hematuria - Subjective Interval history: Patient is awake and alert. Denies any chest pain. No fever or chills. No dysuria. Feels better today overall. No shortness of breath. - Constitutional Vitals: Temp Pulse Resp BP Pulse Ox 98.4 F 81 16 178/83 98 10/21/17 05:35 10/21/17 07:00 10/21/17 10:55 10/21/17 07:00 10/21/17 10:55 General appearance: Present: cooperative, A&O X 3, answers questions appropriately - Neck Neck exam general surgery: Present: supple, trachea midline. Absent: lymphadenopathy - Respiratory Respiratory exam: Present: CTAB. Absent: accessory muscle use, rales, rhonchi, wheezes - Cardiovascular Cardiovascular exam: Present: RRR, +S1, +S2. Absent: diastolic murmur, gallop, rubs, systolic murmur - GI/Abdominal GI/Abdominal exam: Present: normal bowel sounds, soft, no peritoneal signs. Absent: distended, tenderness - Extremities Exam Extremities exam: Present: warm, radial pulses palpable and symmetrical. Absent : calf tenderness, cyanotic, pedal edema - Neurological Exam Neurological exam: Present: alert, oriented X3, no focal deficits. Absent: facial droop, speech deficit - Skin Skin exam: Present: dry, intact Internal Medicine: Result - Labs CBC & Chem 7: 10/21/17 05:24 10/21/17 05:24 Labs: Short CBC 10/21/17 Range/Units 05:24 WBC 4.0 L (4.3-11.1) K/mcL Hgb 13.7 (12.9-16.9) g/dL Hct 41.4 (37.5-50.1) % Plt Count 108 L (140-400) K/mcL Neutrophils # 2.9 (1.6-8.9) K/mcL BMP 10/21/17 05:24 Sodium 135 L Potassium 3.8 Chloride 104 Carbon Dioxide 25 BUN 18 Creatinine 1.32 H Glucose 220 H Calcium 9.3 Cardiac Enzymes 10/20/17 10/21/17 10/21/17 Range/Units 22:48 05:24 09:47 Troponin I 0.11 H* 0.10 H* 0.09 H* (0-0.03) ng/mL - ABG Interpretation ABG results: PT/INR, D-dimer PT 13.0 Seconds (9.4-12.1) H 10/20/17 14:45 Consult Discharge Plan - Plan Referrals: Jhonatan Ely MD [Primary Care Provider] -
[2017-10-21] MEDS ORDERED: Insulin LISPRO 300 UNITS/3 ML VIAL SQ SCH (21:00)
[2017-10-22 04:15] LABS: Basophils % 0.6 %; Eosinophils # 0.1 K/mcL (0.0-0.6); Eosinophils % 2.7 %; Hematocrit 37.6 % (37.5-50.1); Hemoglobin 12.3 g/dL (12.9-16.9); Immature Granulocytes % 0.2 % (0-4); Lymphocytes # 0.9 K/mcL (0.6-4.6); Lymphocytes % 19.5 %; Mean Corpuscular HGB Conc 32.7 g/dL (31.6-35.5); Mean Corpuscular Hemoglobin 29.4 pg (28.0-33.3); Mean Platelet Volume 10.8 fL (9.4-12.4); Monocytes # 0.6 K/mcL (0.0-1.3); Monocytes % 11.5 %; Neutrophils # 3.1 K/mcL (1.6-8.9); Platelet Count 110 K/mcL (140-400); Red Blood Count 4.18 M/mcL (4.19-5.50); Red Cell Distribution Width 12.9 % (11.5-14.5); Segmented Neutrophils % 65.5 %
[2017-10-22 04:23] LABS: Calcium 8.6 mg/dL (8.6-10.8); Magnesium 1.6 mg/dL (1.6-2.6); Potassium 3.9 mEq/L (3.5-4.5)
[2017-10-22 07:41] VITALS: BP 158/71
[2017-10-22] MEDS: Aspirin 81 MG TAB.CHEW PO SCH (07:56)
[2017-10-22] MEDS: Isosorbide MONOnitrate (24 HR) 30 MG TAB.ER.24H PO SCH (07:57)
[2017-10-22] MEDS: Insulin LISPRO 300 UNITS/3 ML VIAL SQ SCH ×2 (07:58→11:47)
[2017-10-22] MEDS: Insulin DETEMIR 100 UNIT/ML X5UNITS SQ SCH (08:01)
--- NOTE | 2017-10-22 08:16 | Cardiology Consult Note ---
Date of Encounter: 10/22/17 Assessment and Plan (1) Elevated troponin Current Visit: Yes Status: Acute Elevated but adynamic troponin in setting of infection with new RBBB, unlikely nstemi The patient denies any history of chest pain or dyspnea Trop 0.15-> 0.11 -> 0.10 -> 0.09 The patient remains asymptomatic at this time Elevated trops likely to be secondary to general health status at this time Recommend tighter control of BP when possible, PRN hydralazine is ordered We will continue to follow tomorrow Discussion w patient/family: The assessment and plan as outlined above was discussed with the patient and/or family members who expressed understanding and agreement. All questions were answered. Thank you for involving us in the care of your patient. Please call with any questions. History of Present Illness History of present illness: Mr. Villa is a 82 year old male Past Med Surg Social Fam HX - Past Medical History Medical history: diabetes, hyperlipidemia, hypertension, myocardial infarction Psychiatric history: no psych history - Past Surgical History Surgical History: coronary bypass (CABG) - Social History Smoking Status: Never smoker Smokeless Tobacco Status: No Alcohol use: none Drug use: none - Family History Father Living Status: Hx Family Cardiac Disorders: Yes Hx Family Respiratory Disorders: No Hx Family Cancer: No Hx Family GI Disorders: No Hx Family Endocrine Disorder: No Hx Family Neuromuscular Disorders: No Hx Family Neurologic Disorders: No Hx Family HEENT Disorders: No Hx Family Autoimmune Disorders: No Medications and Allergies Insulin Glargine [Lantus] 55 unit SQ QAM 12/24/16 [History] Isosorbide MONOnitrate (24 HR) [Imdur] 30 mg PO DAILY 12/24/16 [History] Nitroglycerin [Nitrostat] 0.4 mg SL Q5M PRN 12/24/16 [History] Rosuvastatin Calcium [Crestor] 10 mg PO DAILY 12/24/16 [History] Sertraline [Zoloft] 50 mg PO DAILY 12/24/16 [History] Tamsulosin [Flomax] 0.8 mg PO DAILY 12/24/16 [History] Albuterol Sulfate [Albuterol Inhaler] 2 puff IH [id number] inhaler 12/31/16 [Rx] Insulin LISPRO [HumaLOG] 6 units SQ TIDAC PRN 01/12/17 [History] Acetaminophen [Tylenol] 650 mg PO Q6HR PRN #0 tablet 01/19/17 [Rx] Aspirin 81 mg PO DAILY tab.chew 02/08/17 [Rx] Brimonidine 0.2% [Alphagan] 1 drop LEFT EYE BID bottle 02/08/17 [Rx] 3 Allergy/AdvReac Type Severity Reaction Status Date / Time Penicillins Allergy Rash Verified 10/20/17 11:40 All Systems Review: A 10-system review of systems was performed and is negative for pertinent findings except as documented above in the HPI. Physical Examination Vital Signs, Last 4 Hours Temp Pulse Resp BP Pulse Ox 10/22/17 07:37 97.7 F 73 18 158/71 96 10/22/17 04:31 18 96 Results 10/22/17 03:54 10/22/17 03:54 Lab Results 10/21/17 10/21/17 10/22/17 09:47 13:10 03:54 WBC 4.8 Hgb 12.3 L Hct 37.6 Plt Count 110 L APTT 62.6 H Sodium Potassium Chloride Carbon Dioxide BUN Creatinine Glucose Calcium Magnesium Troponin I 0.09 H* 10/22/17 03:54 WBC Hgb Hct Plt Count APTT Sodium 137 Potassium 3.9 Chloride 106 Carbon Dioxide 23 BUN 22 Creatinine 1.49 H Glucose 161 H Calcium 8.6 Magnesium 1.6 Troponin I Consult Discharge Plan - Plan Referrals: Jhonatan Ely MD [Primary Care Provider] -
--- NOTE | 2017-10-22 10:06 | Cardiology Progress Note ---
Date of Encounter: 10/22/17 Time of Encounter: 09:30 Assessment and Plan (1) Elevated troponin Current Visit: Yes Status: Acute Elevated but adynamic troponin in setting of infection with new RBBB, unlikely nstemi The patient denies any history of chest pain or dyspnea Trop 0.15-> 0.11 -> 0.10 -> 0.09 The patient remains asymptomatic at this time Elevated trops likely to be secondary to general health status at this time Recommend outpatient follow up. Discussion w patient/family: The assessment and plan as outlined above was discussed with the patient and/or family members who expressed understanding and agreement. All questions were answered. Thank you for involving us in the care of your patient. Please call with any questions. Subjective Principal diagnosis: Elevated troponin Interval history: The patient had uneventful evening. No acute complaints Objective Vital Signs, Last 4 Hours Temp Pulse Resp BP Pulse Ox 10/22/17 07:37 97.7 F 73 18 158/71 96 General: Conversant, No Apparent Distress HEENT: Atraumatic, Normocephaly, Mucus Membranes Moist Neck: No JVD, Normal carotid pulses Cardiac: Reg Rate and Rhythm, Normal S1 and S2, No Murmur Lungs: Normal Breath Sounds, No Wheeze, Rales, Rhonchi Neuro: Alert and responsive, No focal deficits noted Abdomen: Soft, Non-Tender Skin: No rashes noted on visualized skin Musculoskeletal: No Chest Wall Tenderness Extremities: No Clubbing, No Cyanosis, No Edema, Normal Pulses Results 10/22/17 03:54 10/22/17 03:54 Lab Results 10/21/17 10/21/17 10/22/17 09:47 13:10 03:54 WBC 4.8 Hgb 12.3 L Hct 37.6 Plt Count 110 L APTT 62.6 H Sodium Potassium Chloride Carbon Dioxide BUN Creatinine Glucose Calcium Magnesium Troponin I 0.09 H* 10/22/17 03:54 WBC Hgb Hct Plt Count APTT Sodium 137 Potassium 3.9 Chloride 106 Carbon Dioxide 23 BUN 22 Creatinine 1.49 H Glucose 161 H Calcium 8.6 Magnesium 1.6 Troponin I Consult Discharge Plan - Plan Referrals: Jhonatan Ely MD [Primary Care Provider] -
--- NOTE | 2017-10-22 13:21 | Discharge Summary ---
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 transplanted heart: [place] heart Associated angina: without angina Qualified Code(s): I25.10 - Atherosclerotic heart disease of [place] coronary artery without angina pectoris (4) Elevated troponin Priority: Secondary Status: Acute (5) Chronic kidney disease, stage 3 Priority: Secondary Status: Chronic - Discharge Medications Prescriptions: cephALEXin [Keflex] 500 mg PO QID #14 capsule Home Medications: Insulin Glargine [Lantus] 55 unit SQ QAM 12/24/16 [History] Isosorbide MONOnitrate (24 HR) [Imdur] 30 mg PO DAILY 12/24/16 [History] Nitroglycerin [Nitrostat] 0.4 mg SL Q5M PRN 12/24/16 [History] Rosuvastatin Calcium [Crestor] 10 mg PO DAILY 12/24/16 [History] Sertraline [Zoloft] 50 mg PO DAILY 12/24/16 [History] Tamsulosin [Flomax] 0.8 mg PO DAILY 12/24/16 [History] Albuterol Sulfate [Albuterol Inhaler] 2 puff IH [id number] inhaler 12/31/16 [Rx] Insulin LISPRO [HumaLOG] 6 units SQ TIDAC PRN 01/12/17 [History] Acetaminophen [Tylenol] 650 mg PO Q6HR PRN #0 tablet 01/19/17 [Rx] Aspirin 81 mg PO DAILY tab.chew 02/08/17 [Rx] Brimonidine 0.2% [Alphagan] 1 drop LEFT EYE BID bottle 02/08/17 [Rx] cephALEXin [Keflex] 500 mg PO QID #14 capsule 10/22/17 [Rx] Allergies/Adverse Reactions: 3 Allergy/AdvReac Type Severity Reaction Status Date / Time Penicillins Allergy Rash Verified 10/20/17 11:40 Procedures/tests Complete & Pending: Procedures Performed prior 72 hours Category Date Time Status EV echocardiogram Routine Y 10/21/17 10:20 Completed Date of admission: 10/20/17 22:10 Primary care physician: Jhonatan Ely MD Consults: 10/20/17 22:27 Consult to Cardiology [CONS] Routine Comment: Consulting Provider: Cardiology Keiry Reason for Consult: RBBB. troponemia Call Completed: No Discharging clinician: Nila Rosa Anticipated date of discharge: 10/22/17 - Patient Status Disposition: Home, Self-Care Condition: Good Functional capacity at discharge: independent ambulation Overall status at discharge: patient is progressing back to baseline - Discharge Instructions Instructions: Cephalexin (By mouth), Urinary Tract Infection in Men (DC) Follow Up With: Jhonatan Ely MD [Primary Care Provider] - 10/27/17 10:30 am (in 1-2 weeks) - Diet and Activity Activity: increase activity as tolerated Diet: low fat, low cholesterol, low salt diet Hospital course: Mr. Villa is a 82 year old male patient with history of diabetes, coronary artery disease status post CABG hypertension and hyperlipidemia who presented to the ER with complaints of fever chills, confusion and urinary incontinence. He was diagnosed with acute urinary tract infection in the ER and he also had a mild elevation in his troponin. As such she was hospitalized and started on treatment with IV antibiotics. Given the rise in troponins, coronary artery disease history and his advanced age, he was also started on treatment for possible non-ST elevation [place] with IV heparin. Cardiology was consulted. Patient's troponin levels have been non-dynamic and have not risen up much further. He did not have any chest pain and as such cardiology does not believe patient is having an episode of non-ST elevation [place]. They do not recommend any further workup at this time. Patient's blood cultures were positive for group B strep. Patient is allergic to penicillins and as such he will be placed on cephalexin to treat this organism. His blood cultures have remained negative. At this time, patient is clinically stable for discharge home. - Time Spent with Patient Total time spent providing and/or coordinating discharge services: Less than 30 minutes (25 min) - Constitutional Vitals: Temp Pulse Resp BP Pulse Ox 97.7 F 73 18 158/71 96 10/22/17 07:37 10/22/17 07:37 10/22/17 07:37 10/22/17 07:37 10/22/17 07:37 General appearance: Present: cooperative, A&O X 3, answers questions appropriately - Neck Neck exam general surgery: Present: supple, trachea midline. Absent: lymphadenopathy - Respiratory Respiratory exam: Present: CTAB. Absent: accessory muscle use, rales, rhonchi, wheezes - Cardiovascular Cardiovascular exam: Present: RRR, +S1, +S2. Absent: diastolic murmur, gallop, rubs, systolic murmur - GI/Abdominal GI/Abdominal exam: Present: normal bowel sounds, soft, no peritoneal signs. Absent: distended, tenderness - Extremities Exam Extremities exam: Present: warm, radial pulses palpable and symmetrical. Absent : calf tenderness, cyanotic, pedal edema - Neurological Exam Neurological exam: Present: alert, oriented X3, no focal deficits. Absent: facial droop, speech deficit
== END 2017-10-22 14:05 | disposition home or self-care (01) | DRG 690 ==
LOC: EMEROO 11:24 → 2NENU 11:24
PROVIDERS: ADMIT Internal Medicine; ATTEND Internal Medicine

== ENCOUNTER 2020-11-12 19:38 | Inpatient (IN) ==
[2020-11-12] MEDS ORDERED: Isovue-370 500 ML BOTTLE IVP ONE (19:49)
[2020-11-12 20:07] LABS: Hematocrit 43.6 % (37.5-50.1); Hemoglobin 13.4 g/dL (12.9-16.9); Mean Corpuscular HGB Conc 30.7 g/dL (31.6-35.5); Mean Corpuscular Hemoglobin 28.3 pg (28.0-33.3); Mean Platelet Volume 10.2 fL (9.4-12.4); Platelet Count 161 K/mcL (140-400); Red Blood Count 4.74 M/mcL (4.19-5.50); Red Cell Distribution Width 13.2 % (11.5-14.5); White Blood Count 7.4 K/mcL (4.3-11.1)
[2020-11-12 20:20] LABS: INR 1.1; Prothrombin Time 12.8 Seconds (9.4-12.1)
[2020-11-12 20:22] LABS: Activated Partial Thrombo Time 27.6 Seconds (26.0-36.0)
[2020-11-12 20:24] LABS: BUN/Creatinine Ratio 16 (6-26); Blood Urea Nitrogen 26 mg/dL (8-23); Calcium 9.5 mg/dL (8.6-10.3); Carbon Dioxide 29 mEq/L (23-29); Chloride 105 mEq/L (98-107); Glucose 61 mg/dL (70-105); Osmolality,Calculated 291 (280-300); Potassium 3.9 mEq/L (3.5-5.1); Sodium 139 mEq/L (136-145); eGFR For African Americans 48 (> 60); eGFR For Non-African Americans 40 (> 60)
[2020-11-12 20:26] LABS: Troponin I < 0.03 ng/mL (< 0.04)
[2020-11-12] MEDS ORDERED: 0.9 % Sodium Chloride 1,000 ML IVC ONE (20:31)
[2020-11-12] MEDS ORDERED: Aspirin 81 MG TAB.CHEW PO STA (20:43)
[2020-11-12] MEDS ORDERED: *HR* Labetalol 20 MG/4 ML SYRINGE IVP ONE (21:54)
[2020-11-13] MEDS ORDERED: Perflutren Lipid Microsphere 1.3 ML in 0.9 % Sodium Chloride 8.7 ML IVP PRN ×2 (05:12→09:14)
[2020-11-13 05:37] LABS: Hematocrit 41.3 % (37.5-50.1); Hemoglobin 12.6 g/dL (12.9-16.9); Mean Corpuscular HGB Conc 30.5 g/dL (31.6-35.5); Mean Corpuscular Hemoglobin 28.1 pg (28.0-33.3); Mean Platelet Volume 10.2 fL (9.4-12.4); Platelet Count 147 K/mcL (140-400); Red Blood Count 4.49 M/mcL (4.19-5.50); Red Cell Distribution Width 13.2 % (11.5-14.5); White Blood Count 6.4 K/mcL (4.3-11.1)
[2020-11-13 06:01] LABS: Albumin 3.6 g/dL (3.5-5.7); Albumin/Globulin Ratio 1.2 (1.1-2.2); Bilirubin,Total 0.6 mg/dL (0.3-1.0); Chol/HDL Ratio 2.5 (0-4.9); Globulin 2.9 g/dL (2.4-3.5); Potassium 3.6 mEq/L (3.5-5.1); Total Protein 6.5 g/dL (6.4-8.9)
[2020-11-13] MEDS ORDERED: Nitroglycerin 0.4 MG TAB.SUBL SL PRN (07:48)
[2020-11-13 08:18] LABS: Estimated Average Glucose 217 mg/dl; Hemoglobin A1C 9.2 %
[2020-11-13] MEDS ORDERED: Aspirin Enteric Coated 81 MG Tablet PO SCH ×2 (09:00→21:00)
[2020-11-13] MEDS: Isosorbide MONOnitrate (24 HR) 30 MG TAB.ER.24H PO SCH (09:38)
[2020-11-13] MEDS: Dorzolamide OPTH 10 ML BOTTLE BOTH EYES SCH ×2 (09:39→20:50)
[2020-11-13] MEDS: Insulin DETEMIR 100 UNIT/ML X5UNITS SUBQ SCH (09:44)
[2020-11-13] MEDS ORDERED: *HR* Heparin 5,000 UNIT/ML VIAL IVP PRN ×2 (10:01)
[2020-11-13] MEDS ORDERED: Heparin 25,000UNIT/250ML 1/2NS 25,000 UNIT/250 ML IV.SOLN IVC SCH (10:15)
[2020-11-13] MEDS ORDERED: Metoprolol XL (24 HR) Succ 25 MG TAB.ER.24H PO SCH (10:15)
[2020-11-13 10:53] LABS: Hematocrit 44.3 % (37.5-50.1); Hemoglobin 13.5 g/dL (12.9-16.9); Heparin anti-factor XA UFH < 0.04 IU/mL (0.30-0.70); Mean Corpuscular HGB Conc 30.5 g/dL (31.6-35.5); Mean Corpuscular Hemoglobin 28.6 pg (28.0-33.3); Mean Corpuscular Volume 93.9 fL (83.0-100.0); Mean Platelet Volume 10.6 fL (9.4-12.4); Platelet Count 168 K/mcL (140-400); Prothrombin Time 11.9 Seconds (9.4-12.1); Red Blood Count 4.72 M/mcL (4.19-5.50); Red Cell Distribution Width 13.2 % (11.5-14.5); White Blood Count 7.8 K/mcL (4.3-11.1)
[2020-11-13 11:16] LABS: Thyroid Stimulating Hormone 1.398 mcIU/mL (0.340-5.600)
[2020-11-13 11:23] LABS: Triiodothyronine (T3) Total 0.87 ng/mL (0.87-1.78)
[2020-11-13 14:25] LABS: INR 1.2; Prothrombin Time 13.4 Seconds (9.4-12.1)
[2020-11-13] MEDS ORDERED: Warfarin perPT PO PRN (18:00)
[2020-11-13] MEDS ORDERED: *HR* Warfarin 5 MG TABLET PO ONE (18:00)
[2020-11-14 02:36] LABS: Basophils % 0.8 %; Eosinophils % 3.8 %
[2020-11-14 02:37] LABS: Basophils # 0.1 K/mcL (0.0-0.2); Eosinophils # 0.3 K/mcL (0.0-0.6); Hematocrit 40.7 % (37.5-50.1); Hemoglobin 12.6 g/dL (12.9-16.9); Immature Granulocytes % 0.5 % (0-4); Immature Platelets 3.2 % (1.1-6.1); Lymphocytes # 0.7 K/mcL (0.6-4.6); Lymphocytes % 10.1 %; Mean Corpuscular Hemoglobin 28.3 pg (28.0-33.3); Mean Corpuscular Volume 91.5 fL (83.0-100.0); Mean Platelet Volume 10.5 fL (9.4-12.4); Monocytes # 0.5 K/mcL (0.0-1.3); Monocytes % 7.8 %; Neutrophils # 5.1 K/mcL (1.6-8.9); Platelet Count 137 K/mcL (140-400); Red Blood Count 4.45 M/mcL (4.19-5.50); Red Cell Distribution Width 13.3 % (11.5-14.5); White Blood Count 6.6 K/mcL (4.3-11.1)
[2020-11-14 02:46] LABS: INR 1.1; Prothrombin Time 12.9 Seconds (9.4-12.1)
[2020-11-14] MEDS: Isosorbide MONOnitrate (24 HR) 30 MG TAB.ER.24H PO SCH (08:44)
[2020-11-14] MEDS: Insulin DETEMIR 100 UNIT/ML X5UNITS SUBQ SCH (08:47)
[2020-11-14] MEDS: Dorzolamide OPTH 10 ML BOTTLE BOTH EYES SCH (08:47)
[2020-11-14] MEDS ORDERED: Apixaban 5 MG TABLET PO SCH (10:00)
[2020-11-14 11:02] VITALS: BP 101/61
== END 2020-11-14 13:20 | disposition home health service (06) | DRG 65 ==
LOC: EMEROOARM 19:38 → 3BNU 19:38 → SUATTDRO 21:09 → 3BNU 21:53
PROVIDERS: ADMIT Internal Medicine; ATTEND Internal Medicine

== ENCOUNTER 2021-05-20 08:48 | Inpatient (IN) ==
[2021-05-20] MEDS ORDERED: Acetaminophen 325 MG TABLET PO ONE (09:45)
[2021-05-20 09:55] LABS: Basophils % 0.2 %; Eosinophils # 0.1 K/mcL (0.0-0.6); Eosinophils % 0.4 %; Hematocrit 43.4 % (37.5-50.1); Hemoglobin 13.7 g/dL (12.9-16.9); Immature Granulocytes % 0.3 % (0-4); Lymphocytes # 0.3 K/mcL (0.6-4.6); Lymphocytes % 2.5 %; Mean Corpuscular HGB Conc 31.6 g/dL (31.6-35.5); Mean Corpuscular Volume 91.9 fL (83.0-100.0); Mean Platelet Volume 10.4 fL (9.4-12.4); Monocytes # 0.5 K/mcL (0.0-1.3); Monocytes % 4.2 %; Neutrophils # 11.2 K/mcL (1.6-8.9); Platelet Count 148 K/mcL (140-400); Red Blood Count 4.72 M/mcL (4.19-5.50); Red Cell Distribution Width 12.6 % (11.5-14.5); Segmented Neutrophils % 92.4 %; White Blood Count 12.1 K/mcL (4.3-11.1)
[2021-05-20 10:02] LABS: Albumin 3.8 g/dL (3.5-5.7); Albumin/Globulin Ratio 1.1 (1.1-2.2); Bilirubin,Total 0.9 mg/dL (0.3-1.0); Calcium 9.8 mg/dL (8.6-10.3); Globulin 3.4 g/dL (2.4-3.5); INR 1.3; Potassium 3.9 mEq/L (3.5-5.1); Prothrombin Time 14.6 Seconds (9.4-12.1); Total Protein 7.2 g/dL (6.4-8.9); Troponin I 0.03 ng/mL (< 0.04)
[2021-05-20 10:14] LABS: Thyroid Stimulating Hormone 2.195 mcIU/mL (0.340-5.600)
[2021-05-20 11:33] LABS: Bilirubin,Urine Negative (Negative); Blood,Urine Small (Negative); Clarity,Urine Clear (Clear); Color,Urine Yellow (Yellow); Glucose,Urine (UA) 50 mg/dL (Normal); Ketones,Urine Negative (Negative); Leukocyte Esterase,Urine Small (Negative); Mucus,Urine Few per lpf (None-Few); Nitrite,Urine Negative (Negative); PH,Urine 6.5 pH Units (5.0-8.0); Protein,Urine >=300 mg/dL (Neg-Trace); Specific Gravity,Urine 1.022 (1.010-1.025); Squamous Epithelial Cell,Urine Few per hpf (None-Few); Urobilinogen,Urine Normal (Normal)
[2021-05-20] MEDS ORDERED: cefTRIAXone 1,000 MG in 0.9 % Sodium Chloride Mini Bag 100 ML IVPB ONE (11:36)
[2021-05-20] MEDS ORDERED: Ondansetron 4 MG/2 ML VIAL IVP PRN (12:27)
[2021-05-20] MEDS ORDERED: *HR* HYDROcodone/Acet 5/325 mg TABLET PO PRN (12:27)
[2021-05-20] MEDS ORDERED: Naloxone 0.4 MG/ML INJ IVP PRN (12:27)
[2021-05-20] MEDS ORDERED: Nitroglycerin 0.4 MG TAB.SUBL SL PRN (12:32)
[2021-05-20] MEDS ORDERED: D5% in Water 1,000 ML IVC PRN (12:33)
[2021-05-20] MEDS ORDERED: Dextrose Gel 15 GM/37.5 ML TUBE PO PRN ×2 (12:33)
[2021-05-20] MEDS ORDERED: *HR* Dextrose 50 % in Water (Vial) 50 ML VIAL IVP PRN (12:33)
[2021-05-20] MEDS ORDERED: 0.9 % Sodium Chloride 500 ML IVC SCH (14:00)
[2021-05-20] MEDS: Insulin LISPRO 300 UNITS/3 ML VIAL SUBQ SCH (17:17)
[2021-05-20] MEDS: Apixaban 5 MG TABLET PO SCH (20:24)
[2021-05-20] MEDS: Aspirin Enteric Coated 81 MG Tablet PO SCH (20:24)
[2021-05-20] MEDS: Insulin DETEMIR 100 UNIT/ML X5UNITS SUBQ SCH (20:27)
[2021-05-21 02:35] LABS: Basophils % 0.3 %; Eosinophils % 0.1 %; Hematocrit 41.6 % (37.5-50.1); Hemoglobin 13.1 g/dL (12.9-16.9); Immature Granulocytes % 0.3 % (0-4); Immature Platelets 3.8 % (1.1-6.1); Lymphocytes # 0.3 K/mcL (0.6-4.6); Lymphocytes % 3.4 %; Mean Corpuscular HGB Conc 31.5 g/dL (31.6-35.5); Mean Corpuscular Hemoglobin 29.2 pg (28.0-33.3); Mean Corpuscular Volume 92.7 fL (83.0-100.0); Mean Platelet Volume 11.1 fL (9.4-12.4); Monocytes # 0.5 K/mcL (0.0-1.3); Monocytes % 4.8 %; Neutrophils # 9.2 K/mcL (1.6-8.9); Platelet Count 130 K/mcL (140-400); Red Blood Count 4.49 M/mcL (4.19-5.50); Red Cell Distribution Width 12.9 % (11.5-14.5); Segmented Neutrophils % 91.1 %; White Blood Count 10.1 K/mcL (4.3-11.1)
[2021-05-21 02:50] LABS: Calcium 9.1 mg/dL (8.6-10.3); Magnesium 1.7 mg/dL (1.6-2.6); Phosphorous 2.2 mg/dL (2.7-4.5); Potassium 4.7 mEq/L (3.5-5.1)
[2021-05-21] MEDS: Insulin LISPRO 300 UNITS/3 ML VIAL SUBQ SCH ×3 (08:34→16:54)
[2021-05-21] MEDS: Isosorbide MONOnitrate (24 HR) 30 MG TAB.ER.24H PO SCH (08:34)
[2021-05-21] MEDS: Apixaban 5 MG TABLET PO SCH ×2 (08:35→19:57)
[2021-05-21] MEDS: Insulin DETEMIR 100 UNIT/ML X5UNITS SUBQ SCH ×2 (08:52→20:01)
[2021-05-21] MEDS ORDERED: levoFLOXacin 750 MG/150 ML 750 MG/150 ML BAG IVPB SCH (09:00)
[2021-05-21] MEDS: Aspirin Enteric Coated 81 MG Tablet PO SCH (19:57)
[2021-05-21] MEDS: Dorzolamide OPTH 10 ML BOTTLE BOTH EYES SCH (20:11)
[2021-05-22 04:21] LABS: Hemoglobin 13.4 g/dL (12.9-16.9); Mean Platelet Volume 10.6 fL (9.4-12.4)
[2021-05-22 04:23] LABS: Basophils % 0.3 %; Eosinophils # 0.1 K/mcL (0.0-0.6); Eosinophils % 1.1 %; Hematocrit 42.6 % (37.5-50.1); Immature Granulocytes % 0.2 % (0-4); Immature Platelets 3.7 % (1.1-6.1); Lymphocytes % 15.3 %; Mean Corpuscular HGB Conc 31.5 g/dL (31.6-35.5); Mean Corpuscular Hemoglobin 28.9 pg (28.0-33.3); Monocytes # 0.7 K/mcL (0.0-1.3); Monocytes % 10.9 %; Neutrophils # 4.6 K/mcL (1.6-8.9); Platelet Count 132 K/mcL (140-400); Red Blood Count 4.63 M/mcL (4.19-5.50); Red Cell Distribution Width 12.8 % (11.5-14.5); Segmented Neutrophils % 72.2 %; White Blood Count 6.3 K/mcL (4.3-11.1)
[2021-05-22 04:38] LABS: Calcium 9.6 mg/dL (8.6-10.3); Magnesium 1.9 mg/dL (1.6-2.6); Potassium 4.1 mEq/L (3.5-5.1)
[2021-05-22 05:03] LABS: Estimated Average Glucose 232 mg/dl; Hemoglobin A1C 9.7 %
[2021-05-22] MEDS ORDERED: 0.9 % Sodium Chloride 1,000 ML ONE (08:01)
[2021-05-22] MEDS: 0.9 % Sodium Chloride 1,000 ML IVC SCH (08:10)
[2021-05-22] MEDS: Isosorbide MONOnitrate (24 HR) 30 MG TAB.ER.24H PO SCH (08:10)
[2021-05-22] MEDS: Apixaban 5 MG TABLET PO SCH ×2 (08:10→20:51)
[2021-05-22] MEDS: Insulin LISPRO 300 UNITS/3 ML VIAL SUBQ SCH ×3 (08:11→16:55)
[2021-05-22] MEDS: Dorzolamide OPTH 10 ML BOTTLE BOTH EYES SCH ×2 (08:11→20:52)
[2021-05-22] MEDS: Insulin DETEMIR 100 UNIT/ML X5UNITS SUBQ SCH ×2 (08:11→21:47)
[2021-05-22] MEDS ORDERED: 0.9 % Sodium Chloride 1,000 ML IV ONE (11:38)
[2021-05-22] MEDS: Aspirin Enteric Coated 81 MG Tablet PO SCH (20:51)
[2021-05-23] MEDS: 0.9 % Sodium Chloride 1,000 ML IVC SCH (01:40)
[2021-05-23 06:07] LABS: Basophils % 0.3 %; Eosinophils # 0.2 K/mcL (0.0-0.6); Eosinophils % 2.5 %; Hematocrit 40.3 % (37.5-50.1); Immature Granulocytes % 0.4 % (0-4); Immature Platelets 3.8 % (1.1-6.1); Lymphocytes % 14.8 %; Mean Corpuscular HGB Conc 32.3 g/dL (31.6-35.5); Mean Corpuscular Hemoglobin 29.7 pg (28.0-33.3); Mean Platelet Volume 10.9 fL (9.4-12.4); Monocytes # 0.6 K/mcL (0.0-1.3); Monocytes % 9.1 %; Platelet Count 148 K/mcL (140-400); Red Blood Count 4.38 M/mcL (4.19-5.50); Red Cell Distribution Width 12.9 % (11.5-14.5); Segmented Neutrophils % 72.9 %; White Blood Count 6.9 K/mcL (4.3-11.1)
[2021-05-23 06:18] LABS: Calcium 9.3 mg/dL (8.6-10.3); Magnesium 1.9 mg/dL (1.6-2.6); Potassium 4.1 mEq/L (3.5-5.1)
[2021-05-23] MEDS: Isosorbide MONOnitrate (24 HR) 30 MG TAB.ER.24H PO SCH (08:07)
[2021-05-23] MEDS: Apixaban 5 MG TABLET PO SCH ×2 (08:07→20:53)
[2021-05-23] MEDS: levoFLOXacin 750 MG TABLET PO SCH (08:08)
[2021-05-23] MEDS: Dorzolamide OPTH 10 ML BOTTLE BOTH EYES SCH ×2 (08:08→20:55)
[2021-05-23] MEDS: Insulin LISPRO 300 UNITS/3 ML VIAL SUBQ SCH ×3 (08:09→17:42)
[2021-05-23] MEDS: Insulin DETEMIR 100 UNIT/ML X5UNITS SUBQ SCH ×2 (08:45→20:54)
[2021-05-23] MEDS: Aspirin Enteric Coated 81 MG Tablet PO SCH (20:53)
[2021-05-24 04:20] LABS: Basophils % 0.5 %; Eosinophils # 0.1 K/mcL (0.0-0.6); Eosinophils % 2.2 %; Hematocrit 39.6 % (37.5-50.1); Hemoglobin 12.7 g/dL (12.9-16.9); Immature Granulocytes % 0.5 % (0-4); Lymphocytes % 15.3 %; Mean Corpuscular HGB Conc 32.1 g/dL (31.6-35.5); Mean Corpuscular Hemoglobin 29.6 pg (28.0-33.3); Mean Corpuscular Volume 92.3 fL (83.0-100.0); Mean Platelet Volume 10.8 fL (9.4-12.4); Monocytes # 0.7 K/mcL (0.0-1.3); Monocytes % 10.2 %; Neutrophils # 4.6 K/mcL (1.6-8.9); Platelet Count 134 K/mcL (140-400); Red Blood Count 4.29 M/mcL (4.19-5.50); Red Cell Distribution Width 12.9 % (11.5-14.5); Segmented Neutrophils % 71.3 %; White Blood Count 6.5 K/mcL (4.3-11.1)
[2021-05-24 04:46] LABS: Calcium 9.1 mg/dL (8.6-10.3); Magnesium 1.7 mg/dL (1.6-2.6); Potassium 4.3 mEq/L (3.5-5.1)
[2021-05-24] MEDS: Insulin DETEMIR 100 UNIT/ML X5UNITS SUBQ SCH ×2 (07:56→21:40)
[2021-05-24] MEDS: Apixaban 5 MG TABLET PO SCH ×2 (07:56→21:40)
[2021-05-24] MEDS: Isosorbide MONOnitrate (24 HR) 30 MG TAB.ER.24H PO SCH (07:59)
[2021-05-24] MEDS: amLODIPine 5 MG TABLET PO SCH (08:36)
[2021-05-24] MEDS: Dorzolamide OPTH 10 ML BOTTLE BOTH EYES SCH ×2 (08:37→21:41)
[2021-05-24] MEDS: Insulin LISPRO 300 UNITS/3 ML VIAL SUBQ SCH ×3 (08:38→16:49)
[2021-05-24] MEDS: Aspirin Enteric Coated 81 MG Tablet PO SCH (21:39)
[2021-05-25 07:39] LABS: Basophils % 0.6 %; Eosinophils # 0.2 K/mcL (0.0-0.6); Eosinophils % 2.7 %; Hematocrit 39.4 % (37.5-50.1); Hemoglobin 12.4 g/dL (12.9-16.9); Immature Granulocytes % 0.6 % (0-4); Lymphocytes # 1.1 K/mcL (0.6-4.6); Lymphocytes % 17.2 %; Mean Corpuscular HGB Conc 31.5 g/dL (31.6-35.5); Mean Corpuscular Hemoglobin 29.1 pg (28.0-33.3); Mean Corpuscular Volume 92.5 fL (83.0-100.0); Mean Platelet Volume 10.3 fL (9.4-12.4); Monocytes # 0.5 K/mcL (0.0-1.3); Monocytes % 8.5 %; Neutrophils # 4.4 K/mcL (1.6-8.9); Platelet Count 138 K/mcL (140-400); Red Blood Count 4.26 M/mcL (4.19-5.50); Red Cell Distribution Width 12.8 % (11.5-14.5); Segmented Neutrophils % 70.4 %; White Blood Count 6.2 K/mcL (4.3-11.1)
[2021-05-25 07:41] VITALS: BP 167/70
[2021-05-25 08:00] LABS: Calcium 9.3 mg/dL (8.6-10.3); Magnesium 1.7 mg/dL (1.6-2.6)
[2021-05-25] MEDS: Insulin DETEMIR 100 UNIT/ML X5UNITS SUBQ SCH (08:55)
[2021-05-25] MEDS: Insulin LISPRO 300 UNITS/3 ML VIAL SUBQ SCH (08:55)
[2021-05-25] MEDS: Apixaban 5 MG TABLET PO SCH (08:55)
[2021-05-25] MEDS: Isosorbide MONOnitrate (24 HR) 30 MG TAB.ER.24H PO SCH (08:56)
[2021-05-25] MEDS: amLODIPine 5 MG TABLET PO SCH (08:56)
[2021-05-25] MEDS: levoFLOXacin 750 MG TABLET PO SCH (08:56)
[2021-05-25] MEDS: Dorzolamide OPTH 10 ML BOTTLE BOTH EYES SCH (08:56)
== END 2021-05-25 11:30 | DRG 872 ==
LOC: 3ANU 08:48 → EMEROOARM 08:48 → SUATTDRO 13:01 → 3ANU 13:36
PROVIDERS: ADMIT Internal Medicine; ATTEND Pharmacist